=== PATIENT | male | born 1950 | race Caucasian/White ===

== ENCOUNTER 2024-02-12 17:16 | Outpatient (REF) | payer MEDICARE, MEDICAID, SELFPAY ==
[2024-02-12 19:25] LABS: Anion Gap 8.1 mmol/L (3-11); BUN 20 mg/dL (7-18); CO2 24.9 mmol/L (21.0-32.0); CREATININE 1.1 mg/dL (0.70-1.30); Calcium 8.7 mg/dL (8.5-10.1); Chloride 97 mmol/L (98-107); Estimated GFR 71.77 (mL/min/1.73m2); Glucose 90 mg/dL (74-106); Potassium 4.5 mmol/L (3.5-5.1); Sodium 130 mmol/L (136-145)
== END 2024-02-12 17:17 | disposition home or self-care (01) ==
LOC: NCHCN 17:16
PROVIDERS: PCP Internal Medicine; Visit Provider Nurse Practitioner Family
DX: N17.9 Acute kidney failure, unspecified (principal)
CPT/HCPCS: 80048

== ENCOUNTER 2024-02-20 10:52 | Outpatient (REF) | payer MEDICARE, MEDICAID, SELFPAY ==
[2024-02-20 18:53] LABS: Anion Gap 7.3 mmol/L (3-11); BUN 17 mg/dL (7-18); CO2 26.7 mmol/L (21.0-32.0); CREATININE 1.5 mg/dL (0.70-1.30); Calcium 8.4 mg/dL (8.5-10.1); Chloride 95 mmol/L (98-107); Estimated GFR 49.47 (mL/min/1.73m2); Glucose 111 mg/dL (74-106); Magnesium 1.8 mg/dL (1.8-2.4); Potassium 3.9 mmol/L (3.5-5.1); Sodium 129 mmol/L (136-145)
== END 2024-02-20 10:53 | disposition home or self-care (01) ==
LOC: NCHCN 10:52
PROVIDERS: PCP Internal Medicine; Visit Provider Nurse Practitioner Family
DX: E87.1 Hypo-osmolality and hyponatremia (principal); E83.42 Hypomagnesemia
CPT/HCPCS: 80048; 83735

== ENCOUNTER 2024-03-02 10:02 | Outpatient (REF) | payer MEDICARE, MEDICAID, SELFPAY ==
[2024-03-02 18:58] LABS: Anion Gap 7.3 mmol/L (3-11); BUN 15 mg/dL (7-18); CO2 27.7 mmol/L (21.0-32.0); CREATININE 1.3 mg/dL (0.70-1.30); Calcium 8.4 mg/dL (8.5-10.1); Chloride 96 mmol/L (98-107); Estimated GFR 58.73 (mL/min/1.73m2); Glucose 104 mg/dL (74-106); Potassium 4.4 mmol/L (3.5-5.1); Sodium 131 mmol/L (136-145)
== END 2024-03-02 10:03 | disposition home or self-care (01) ==
LOC: NCHCN 10:02
PROVIDERS: PCP Internal Medicine; Referring Provider Nurse Practitioner Family; Visit Provider Nurse Practitioner Family
DX: N17.9 Acute kidney failure, unspecified (principal)
CPT/HCPCS: 80048

== ENCOUNTER 2024-03-16 15:49 | Outpatient (REF) | payer MEDICARE, MEDICAID, SELFPAY ==
[2024-03-16 20:02] LABS: HCT 30.5 % (40.0-50.0); HGB 10.2 g/dL (13.5-17.5); MCH 32.2 pg (27.0-33.0); MCHC 33.4 % (32.0-36.0); MCV 96 fL (80-95); MPV 10.1 fL (8.0-11.0); Platelet Count 175 10^3/uL (130-400); RBC 3.17 10^6/uL (4.36-5.78); RDW 13.6 % (11.8-14.1); RDW-SD 48.4 fL; WBC 8.42 10^3/uL (4.4-10.8)
[2024-03-16 20:13] LABS: Iron 36 ug/dL (65-175); Total Iron Binding Capacity 209 ug/dL (250-450); Transferrin Sat 17 % (20-55)
[2024-03-16 20:27] LABS: Anion Gap 7.1 mmol/L (3-11); BUN 16 mg/dL (7-18); CO2 26.9 mmol/L (21.0-32.0); CREATININE 1.3 mg/dL (0.70-1.30); Calcium 8.6 mg/dL (8.5-10.1); Chloride 97 mmol/L (98-107); Estimated GFR 58.73 (mL/min/1.73m2); Ferritin 908 ng/mL (26-388); Glucose 89 mg/dL (74-106); Magnesium 1.9 mg/dL (1.8-2.4); Potassium 4.5 mmol/L (3.5-5.1); Sodium 131 mmol/L (136-145)
== END 2024-03-16 15:50 | disposition home or self-care (01) ==
LOC: NCHCN 15:49
PROVIDERS: PCP Internal Medicine; Visit Provider Nurse Practitioner Family
DX: D53.9 Nutritional anemia, unspecified (principal); E83.42 Hypomagnesemia; N17.9 Acute kidney failure, unspecified
CPT/HCPCS: 80048; 85027; 82728; 82746; 83540; 83550; 83735

== ENCOUNTER 2024-03-30 11:36 | Outpatient (REF) | payer MEDICARE, MEDICAID, SELFPAY ==
[2024-03-30 18:55] LABS: Anion Gap 7.8 mmol/L (3-11); BUN 16 mg/dL (7-18); CO2 27.2 mmol/L (21.0-32.0); CREATININE 1.5 mg/dL (0.70-1.30); Calcium 8.6 mg/dL (8.5-10.1); Chloride 98 mmol/L (98-107); Estimated GFR 49.47 (mL/min/1.73m2); Glucose 116 mg/dL (74-106); Potassium 4.2 mmol/L (3.5-5.1); Sodium 133 mmol/L (136-145)
== END 2024-03-30 11:37 | disposition home or self-care (01) ==
LOC: NCHCN 11:36
PROVIDERS: PCP Internal Medicine; Visit Provider Nurse Practitioner Family
DX: R94.4 Abnormal results of kidney function studies (principal)
CPT/HCPCS: 80048

== ENCOUNTER 2024-05-17 11:08 | Outpatient (REF) | payer MEDICARE, MEDICAID, SELFPAY ==
[2024-05-17 20:38] LABS: Anion Gap 9.1 mmol/L (3-11); BUN 20 mg/dL (7-18); CO2 25.9 mmol/L (21.0-32.0); CREATININE 1.7 mg/dL (0.70-1.30); Calcium 8.6 mg/dL (8.5-10.1); Chloride 97 mmol/L (98-107); Estimated GFR 42.57 (mL/min/1.73m2); Glucose 89 mg/dL (74-106); Potassium 4.2 mmol/L (3.5-5.1); Sodium 132 mmol/L (136-145)
== END 2024-05-17 11:09 | disposition home or self-care (01) ==
LOC: NCHCN 11:08
PROVIDERS: PCP Internal Medicine; Visit Provider Nurse Practitioner Family
DX: R79.89 Other specified abnormal findings of blood chemistry (principal)
CPT/HCPCS: 80048

== ENCOUNTER 2024-05-24 10:05 | Outpatient (REF) | payer MEDICARE, MEDICAID, SELFPAY ==
[2024-05-24 20:14] LABS: Bilirubin Negative (Negative); Blood Large (Negative); Clarity Clear (Clear); Glucose Negative (Negative); Ketones Negative (Negative); Leukocyte Esterase Negative (Negative); Nitrite Negative (Negative); Urobilinogen 0.2 mg/dL (Up to 0.2)
[2024-05-24 20:25] LABS: Bacteria Negative HPF (Negative); C & S Indicated? No; Crystals Negative HPF (Negative); Epithelial Cells Rare HPF (Negative); Mucus Negative (Negative); RBC 20-50 HPF (0-2); WBC 0-2 HPF (0-5)
== END 2024-05-24 10:06 | disposition home or self-care (01) ==
LOC: NCHCN 10:05
PROVIDERS: PCP Internal Medicine; Visit Provider Nurse Practitioner Family
DX: R79.89 Other specified abnormal findings of blood chemistry (principal); R82.998 Other abnormal findings in urine
CPT/HCPCS: 81003; 81015

== ENCOUNTER 2024-06-09 10:29 | Emergency (ER) | payer MEDICARE, MEDICAID, SELFPAY ==
[2024-06-09] VITALS (28 sets, daily range): BP systolic 141–202; BP diastolic 70–138; PULSE 61–69; RESP 11–30; TEMP 36–36.1; O2SAT 94–99
--- NOTE | 2024-06-09 10:00 | RT.EKG_ITS ---
APPROVED REPORT Exam: Resting ECG Reason for Exam: syncope Patient Location: E HR:59 bpm ECG Measurements Heart Rate 59 AXIS MN 193 P 52 QRSd 95 QRS 58 QT 464 T 61 QTc 459 Conclusion Sinus bradycardia...rate< 60 sinus bradycardia, normal axis, normal intervals, non ischemic
--- NOTE | 2024-06-09 10:38 | W.ED.GENAD ---
Discharge Plan Disposition Patient Disposition: Home Condition: Improving Discharge Details Chief Complaint: [id number] Clinical Impression: Syncope Primary Care Provider: Lewis Kelley ED Provider: Jalil Clarke Home Meds and New Rx's Prescriptions: No Action aspirin [Adult Aspirin Regimen] 81 mg tablet,delayed release (DR/EC) 81 mg PO DAILY atorvastatin 40 mg tablet 40 mg PO DAILY metoprolol succinate 25 mg tablet extended release 24 hr 25 mg PO DAILY Discharge Instructions Instructions: Syncope (Fainting) (DC) Additional Instructions: Please return to the emergency department for any worsening symptoms. Follow-up close with your primary care physician. HPI General Date/Time Provider Initiated Documentation: 06/09/24 10:36. HPI Narrative: 73-year-old male history of hyponatremia hypomagnesemia alcohol abuse, presents after syncopal episode at a job site, felt lightheaded and collapsed to the ground no chest pain or shortness of breath no headache no neck pain no thoracoabdominal trauma patient regained consciousness normal fingerstick in the field, had episode of bradycardia and hypotension now resolving patient feeling asymptomatic currently Related Data Home Medications Medication Instructions Recorded Confirmed aspirin 81 mg tablet,delayed 81 mg PO DAILY 06/01/24 release (Adult Aspirin Regimen) atorvastatin 40 mg tablet 40 mg PO DAILY 06/01/24 metoprolol succinate 25 mg 25 mg PO DAILY 06/01/24 tablet,extended release 24 hr Allergies Allergy/AdvReac Type Severity Reaction Status Date / Time cefdinir Allergy Skin Rash Verified 06/01/24 08:19 General Stated Complaint: [id number] IBGG: 3 Review of Systems Narrative: Review of Systems Constitutional: negative Eyes: negative ENT: negative Cardiovascular: Syncope Respiratory: negative Gastrointestinal: negative : negative Musculoskeletal: negative Skin: negative Neurologic: negative Psych: negative Exam Narrative Exam Narrative: Physical Examination General: alert, awake, cooperative, resting comfortably, no acute distress HEENT: normocephalic, atraumatic; PERRL, EOM intact, conjunctiva normal; no nasal discharge; drying of oral mucosa Neck: supple, trachea midline; full ROM Chest: normal to inspection Respiratory: normal respiratory effort, speaking in full sentences, clear to auscultation, no wheezing, rales or rhonchi Cardiac: regular rate, regular rhythm, S1S2 intact, no murmurs rubs or gallops GI: abdomen soft, non-tender, non-distended; no palpable mass or hepatosplenomegaly Back: No midline spinal tenderness step-off crepitus or deformity Skin: no lesions, rashes or trauma appreciated; dry skin Neuro: AAOx3, normal speech, moving all extremities Extremities: No peripheral edema no trauma Psych: Appropriate mood and affect Course Vital Signs Vital signs: Vital Signs Temperature 36.0 C L 06/09/24 10:26 Pulse 65 06/09/24 10:26 Respiratory Rate 20 06/09/24 10:26 Blood Pressure 141/70 H 06/09/24 10:26 Pulse Oximetry 98 06/09/24 10:26 Temperature 36.0 C L 06/09/24 10:26 Temperature Source Tympanic 06/09/24 10: Pulse 65 06/09/24 10:26 Respiratory Rate 20 06/09/24 10:26 Blood Pressure 141/70 H 06/09/24 10:26 Pulse Oximetry 98 06/09/24 10:26 Oxygen Delivery Method Room Air 06/09/24 10: Oxygen Flow Rate 0 06/09/24 10:26 Medical Decision Making 73-year-old male presents after episode of syncope at work, prodrome of lightheadedness, brief loss of consciousness after collapse, no chest pain or shortness of breath no respiratory symptoms no headache no neck pain no back pain no thoracoabdominal trauma hemodynamically stable sinus rhythm sinus bradycardia on EKG without ischemic changes mildly hypertensive afebrile nontoxic neurologically intact moving all extremities without deficit no signs of trauma, consider orthostatic versus vasovagal syncope muscles consider component of intoxication and dehydration given patient history muscles consider electrolyte derangement lower suspicion for ACS PE aortic pathology or CVA. Given age and comorbidities will obtain labs and imaging, fluids close reassessment 15: 03 resting comfortably no acute distress labs and imaging largely unremarkable, patient is COVID-positive. Neurologically intact. Likely component of dehydration versus overexertion versus vasovagal versus orthostasis in the setting of viral illness. Home care instruction return precautions given Quality:SDOH Health Related Social Needs: No Data to Display PFSH All Active Problems (Updated 06/09/24 @ 13:04 by Jalil Clarke MD) Syncope (Chronic) Serum creatinine raised (Acute) Atrial tachycardia (Acute) History of hypotension (Acute) Dysphagia (Acute) Chest pain (Acute) Pruritic rash (Acute) Acute kidney injury (Acute) Pneumonia (Acute) Heart failure (Acute) Nicotine dependence (Acute) Tobacco dependence (Acute) Heavy drinker (Acute) Alcohol abuse (Chronic) Alcohol dependence (Acute) Macrocytic anemia (Acute) Metabolic acidosis (Acute) Hyponatremia (Acute) Hypomagnesemia (Acute) Social History Smoking/Tobacco Use Status: Current every day Smoking risk assessment performed?: Yes Drug use: Never
[2024-06-09 10:52] LABS: Abs Immature Grans 0.01 10^3/uL (0.0-0.06); Absolute Basophil Count 0.02 10^3/uL (0.0-0.2); Absolute Eosinophil Count 0.01 10^3/uL (0.0-0.7); Absolute Lymphocyte Count 1.06 10^3/uL (1.2-3.4); Absolute Neutrophil Count 1.37 10^3/uL (1.2-6.7); Basophils % 0.7 %; Eosinophils % 0.3 %; HCT 32.7 % (40.0-50.0); HGB 11.1 g/dL (13.5-17.5); Immature Grans % 0.3 %; Lymphocytes % 36.9 %; MCH 32.6 pg (27.0-33.0); MCHC 33.9 % (32.0-36.0); MCV 96 fL (80-95); MPV 9.1 fL (8.0-11.0); Monocytes % 13.9 %; Neutrophils % 47.9 %; Platelet Count 123 10^3/uL (130-400); RDW 12.7 % (11.8-14.1); RDW-SD 44.9 fL; WBC 2.87 10^3/uL (4.4-10.8)
[2024-06-09 11:09] LABS: INR 1.2 (0.9-1.1); PTT Activated 24.9 sec (23.6-32.8); Prothrombin Time 11.9 sec (9.1-11.1)
[2024-06-09 11:20] LABS: ALT 31 U/L (16-63); AST 49 U/L (15-37); Albumin 3.3 g/dL (3.4-5.0); Alkaline Phosphatase 78 U/L (46-116); Anion Gap 5.7 mmol/L (3-11); BUN 27 mg/dL (7-18); Bilirubin, Total 0.33 mg/dL (0.2-1.0); CO2 27.3 mmol/L (21.0-32.0); Chloride 96 mmol/L (98-107); Estimated GFR 35.02 (mL/min/1.73m2); Glucose 100 mg/dL (74-106); Magnesium 1.5 mg/dL (1.8-2.4); NT-proBNP 1470 pg/mL (<300); Potassium 3.7 mmol/L (3.5-5.1); Sodium 129 mmol/L (136-145); TSH (W/Ref FT4) 5.02 uIU/mL (0.36-3.74); Total Protein 7.3 g/dL (6.4-8.2); Troponin I < 50 ng/L (< or =60)
[2024-06-09 11:21] LABS: ETHANOL BLOOD < 3.0 mg/dL (<10)
[2024-06-09 11:35] LABS: FREE T4 0.83 ng/dL (0.76-1.46)
[2024-06-09 11:50] LABS: Bilirubin Negative (Negative); Blood Large (Negative); Clarity Clear (Clear); Glucose Negative (Negative); Ketones Negative (Negative); Leukocyte Esterase Negative (Negative); Nitrite Negative (Negative); Specific Gravity 1.015 (1.005-1.025); Urobilinogen 0.2 mg/dL (Up to 0.2)
[2024-06-09 12:11] LABS: Bacteria Few HPF (Negative); Epithelial Cells Few HPF (Negative); Mucus Trace (Negative); RBC >50 HPF (0-2)
[2024-06-09 12:12] LABS: C & S Indicated? No; Casts 0-2 Coarse Granular LPF (Negative)
[2024-06-09 12:26] LABS: Influenza A PCR Negative (Negative); Influenza B PCR Negative (Negative); RSV PCR Negative (Negative)
[2024-06-09 12:28] LABS: Source Nasopharynx
[2024-06-09 12:29] LABS: COVID-19 PCR Positive (Negative)
--- NOTE | 2024-06-09 12:31 | DI.CT_ITS ---
Exam(s) CT HEAD WO EXAM: CT HEAD WO CLINICAL HISTORY: syncope, on ASA. TECHNIQUE: Imaging Protocol: Axial computed tomography images with coronal and sagittal reformatted images were created and reviewed COMPARISON: No exams were available for comparison FINDINGS: Ventricles and Extra axial spaces: Normal in size and morphology for the patient's age. Hemorrhage: None. Cerebral parenchyma: No evidence of acute infarct or mass. White matter changes of small vessel dis ease. Midline shift: None. Brainstem/Cerebellum: Normal. Calvarium: Normal. Visualized Paranasal sinuses:Clear. Mastoids: Clear. Soft Tissues: Unremarkable. ORBITS: Unremarkable. PITUITARY: Not enlarged. IMPRESSION: No acute intracranial process. RADIATION DOSE DELIVERED: 724.24mGy.cm Total DLP DATA REPOSITORY: All CT scans at this facility are submitted to the National Radiology Data Registry (NRDR) Dose Index Registry (DIR) with the [employer] (ACR). RADIATION OPTIMIZATION: All CT scans at this facility use at least one of these dose optimization te chniques: automated exposure control; mA and/or kV adjustment per patient size (includes targeted exa ms where dose is matched to clinical indication); or iterative reconstruction.
--- NOTE | 2024-06-09 12:35 | DI.RAD_ITS ---
Exam(s) XR CHEST 2V PA LATERAL EXAM: XR CHEST 2V PA LATERAL CLINICAL HISTORY: syncope TECHNIQUE: 2D digital imaging was performed. Two views. COMPARISON: No exams were available for comparison FINDINGS: HEART: Normal size. Aorta: Not dilated. PULMONARY VASCULATURE: Normal. MEDIASTINUM: Unremarkable. LUNGS: Clear. Emphysematous changes visible. PLEURAL SPACE: No pleural effusion or pneumothorax. BONE:Degenerative changes in the spine and shoulders. SOFT TISSUES: Unremarkable. IMPRESSION: No acute abnormality. DATA REPOSITORY: RADIATION DOSE DELIVERED:
== END 2024-06-09 13:20 | disposition home or self-care (01) ==
LOC: ER 14:09
PROVIDERS: Emergency Provider Emergency Medicine; PCP Internal Medicine
DX: R55 Syncope and collapse (principal); F17.200 Nicotine dependence, unspecified, uncomplicated; Z79.82 Long term (current) use of aspirin
CPT/HCPCS: 36415; 80053; 87637; 93005; 99284; 70450; 71046; 80320; 81003; 81015; 83735; 83880; 84439; 84443; 84484; 85025; 85610; 85730; 93010; 99283

== ENCOUNTER 2024-09-28 21:04 | Outpatient (REF) | payer MEDICARE, MEDICAID, SELFPAY ==
[2024-09-28 19:18] LABS: HCT 34.2 % (40.0-50.0); HGB 11.6 g/dL (13.5-17.5); MCH 33.8 pg (27.0-33.0); MCHC 33.9 % (32.0-36.0); MCV 100 fL (80-95); MPV 10.6 fL (8.0-11.0); Platelet Count 111 10^3/uL (130-400); RBC 3.43 10^6/uL (4.36-5.78); RDW 12.9 % (11.8-14.1); RDW-SD 46.5 fL; WBC 6.45 10^3/uL (4.4-10.8)
[2024-09-28 19:25] LABS: Bacteria Many HPF (Negative); C & S Indicated? No; Casts 0-2 Hyaline LPF (Negative); Crystals Negative HPF (Negative); Epithelial Cells Rare HPF (Negative); Mucus Negative (Negative); WBC 0-2 HPF (0-5)
[2024-09-28 19:34] LABS: ALT 25 U/L (16-63); AST 37 U/L (15-37); Albumin 3.6 g/dL (3.4-5.0); Alkaline Phosphatase 82 U/L (46-116); Anion Gap 9.8 mmol/L (3-11); BUN 20 mg/dL (7-18); Bilirubin, Direct 0.1 mg/dL (0.0-0.2); Bilirubin, Total 0.53 mg/dL (0.2-1.0); CO2 26.2 mmol/L (21.0-32.0); CREATININE 1.8 mg/dL (0.70-1.30); Calcium 9.1 mg/dL (8.5-10.1); Chloride 97 mmol/L (98-107); Glucose 95 mg/dL (74-106); Magnesium 1.6 mg/dL (1.8-2.4); Potassium 4.1 mmol/L (3.5-5.1); Sodium 133 mmol/L (136-145); Total Protein 8.5 g/dL (6.4-8.2)
== END 2024-09-28 21:05 | disposition home or self-care (01) ==
LOC: NCHCN 21:04
PROVIDERS: PCP Internal Medicine; Visit Provider Nurse Practitioner Family
DX: N18.32 Chronic kidney disease, stage 3b (principal); R31.29 Other microscopic hematuria
CPT/HCPCS: 80048; 80076; 85027; 81015; 83735

== ENCOUNTER 2024-10-26 16:01 | Outpatient (REF) | payer MEDICARE, MEDICAID, SELFPAY ==
[2024-10-26 19:24] LABS: Magnesium 1.7 mg/dL (1.8-2.4)
[2024-10-26 19:52] LABS: HCT 31.7 % (40.0-50.0); HGB 10.7 g/dL (13.5-17.5); MCH 33.9 pg (27.0-33.0); MCHC 33.8 % (32.0-36.0); MCV 100 fL (80-95); MPV 10.1 fL (8.0-11.0); Platelet Count 187 10^3/uL (130-400); RBC 3.16 10^6/uL (4.36-5.78); RDW 12.4 % (11.8-14.1)
== END 2024-10-26 16:02 | disposition home or self-care (01) ==
LOC: NCHCN 16:01
PROVIDERS: PCP Internal Medicine; Visit Provider Nurse Practitioner Family
DX: E83.42 Hypomagnesemia (principal); D53.9 Nutritional anemia, unspecified
CPT/HCPCS: 85027; 83735

== ENCOUNTER 2025-03-29 12:59 | Outpatient (REF) | payer MEDICARE, MEDICAID, SELFPAY ==
[2025-03-29 19:38] LABS: Anion Gap 7.7 mmol/L (3-11); BUN 21 mg/dL (7-18); CO2 29.3 mmol/L (21.0-32.0); CREATININE 1.9 mg/dL (0.70-1.30); Calcium 9.5 mg/dL (8.5-10.1); Chloride 96 mmol/L (98-107); Estimated GFR 37.02 (mL/min/1.73m2); Glucose 84 mg/dL (74-106); Potassium 4.6 mmol/L (3.5-5.1); Sodium 133 mmol/L (136-145)
== END 2025-03-29 13:00 | disposition home or self-care (01) ==
LOC: NCHCN 12:59
PROVIDERS: PCP Internal Medicine; Visit Provider Nurse Practitioner Family
DX: E87.1 Hypo-osmolality and hyponatremia (principal)
CPT/HCPCS: 80048

== ENCOUNTER 2025-04-04 12:05 | Outpatient (REF) | payer MEDICARE, MEDICAID, SELFPAY ==
[2025-04-04 19:26] LABS: Bilirubin Negative (Negative); Blood Moderate (Negative); Clarity Clear (Clear); Glucose Negative (Negative); Ketones Negative (Negative); Leukocyte Esterase Negative (Negative); Nitrite Negative (Negative); Urobilinogen 0.2 mg/dL (Up to 0.2); pH 6.5 (5-8)
[2025-04-04 19:32] LABS: Bacteria Negative HPF (Negative); C & S Indicated? No; Casts 0-2 Hyaline LPF (Negative); Crystals Negative HPF (Negative); Epithelial Cells Few HPF (Negative); Mucus Heavy (Negative); RBC 20-50 HPF (0-2); WBC Negative HPF (0-5)
[2025-04-06 14:01] LABS: Albumin 46.6 % (55.8-66.1); Albumin g/dL 3.5 g/dL (3.6-5.2); Comment (See Note); Monoclonal Spike 18.6 % (None Seen); Monoclonal Spike g/dL 1.4 g/dL (None Seen); Total Protein 7.6 g/dL (6.3-8.2)
[2025-04-06 16:19] LABS: Immunotyping, Serum (See Note)
== END 2025-04-04 12:06 | disposition home or self-care (01) ==
LOC: NCHCN 12:05
PROVIDERS: PCP Internal Medicine; Visit Provider Nurse Practitioner Family
DX: N18.32 Chronic kidney disease, stage 3b (principal)
CPT/HCPCS: 81003; 81015; 84165; 86320

== ENCOUNTER 2025-06-01 01:39 | Outpatient (CLI) | payer MEDICARE, MEDICAID, SELFPAY ==
--- NOTE | 2025-06-01 13:09 | ST.MBS ---
Date of Service Date of service: 06/01/25 Time of Service: 14:00 Modified Barium Swallow Study Findings: Video fluoroscopic Swallowing Evaluation (VFSE) / Modified Barium Swallow Study (MBSS) Speech Language Pathology Report Patient referred for VFSE/MBSS from Dr. Kelley given gradually worsening dysphagia with solids > liquids and ~10 lb weight loss. Kishan states he is currently only able to eat soups/pureed foods. He describes food as sticking in lower throat and sometimes he will experience immediate onset regurgitation. Liquids are OK. Pills are OK if small, otherwise he is crushing them. HPI & Patient report of function: Patient is a 74 year old male with PMH significant for extensive tobacco use (reduced to 1ppd, previously 3ppd), ETOH use, NSTEMI, CKD, carotid stenosis, hx R side pneumonia, and macrocytic anemia who presents with 2-3 month history of dysphagia as noted above. His PCP referred him for ELECTRICAL APPRENTICE evaluation, MBSS, CT of the neck, and ENT with concern for head and neck CA. He was seen for a non-instrumental swallow evaluation 05/24/25 and recommended a L4 Puree diet, thin liquids, and meds crushed in puree while awaiting further workup with MBSS. Per patient report, Kishan received imaging at [facility] (unable to locate report) which was positive for 'esophageal mass'. Per review of [facility] records he is scheduled to see a thoracic surgeon at [facility] on 06/13/25 for dx esophageal mass. He is scheduled to see ENT on 06/28/25 as initially set up by PCP with dysphagia complaints, as well as for concern of melanotic lesion on L posterior neck. 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 IMPRESSIONS: Patient presents with severe upper esophageal dysphagia with subsequent pharyngeal phase dysfunction. With all trialed consistencies (thin liquid, thick liquid, pudding) the bolus is retained just immediately below the upper esophageal sphincter. While at first this looks possibly consistent with a diverticulum, with further scan down there is suspected narrowing of the esophagus. See radiologist report for more information/correlate with recent imaging at [facility]. With each sip/bite, there are multiple swallows in attempt to clear, and also subsequent vallecular and pyriform retention. While he is able to clear majority of pharyngeal residue, mild vallecular retention remains still at end of study along with there is notable upper esophageal retention remaining again just below the PES. Aspiration did occur in one instance with thin liquid- immediate cough reflex present though not fully effective. Again, primary reason for aspiration and pharyngeal retention appears to be the upper esophageal dysfunction. Recommend endoscopy for further workup. Additional ELECTRICAL APPRENTICE needs to be determined pending patient's treatment plan. Specialist referrals:? GI/surgery for upper GI endoscopy procedure & biopsy RECOMMENDATIONS: Diet Texture:? IDDSI LEVEL SOLIDS 4-Pureed Solids & 3-Liquidised Solids LIQUIDS 0-Thin Liquids MEDICATIONS Crushed or whole (if small) in applesauce followed by sips liquid Diet texture modification is per patient's preference; please adjust diet textures at patient's discretion & collaboration with care team. Do not alter medications (e.g., cut)? without advice from your MD or pharmacist. Risk Management Strategies:? Upright position during + 90 mins after meals. Small bites, approx [id number] Very small sips, approx 5mL / teaspoon Encourage avoidance of straws Multiple swallows per bolus to encourage clearance of pharyngeal stasis/residue Control risk factors for aspiration pneumonia via (a) thorough oral hygiene & (b) maintaining physical mobility as tolerated Discussed importance of oral hygiene despite being edentulous. Patient verbalized comprehension of this education. PLAN: No further ELECTRICAL APPRENTICE services indicated at this time as he undergoes further esophageal workup and management. Pending patient's plan of care, further ELECTRICAL APPRENTICE may be indicated. We will continue to monitor. OBJECTIVE Videofluoroscopic Swallow Evaluation (VFSE/MBSS) was conducted in the lateral and [id number] projection by Speech-Language Pathologist, in collaboration with Radiologist, to evaluate oropharyngeal swallow function. Anatomic view under fluoroscopy: WFL PO Barium Contrast Trials Oral barium water-soluble contrast was administered as follows: IDDSI Level 0 Varibar thin liquid (40% w/v) IDDSI Level 2 Varibar nectar thick/mildly thick liquid (40% w/v) IDDSI Level 4 Varibar pudding/pureed/extremely thick (40% w/v) MBSImP Component Scores: COMPONENT Scale SCORE 1 Lip closure (0-4) 0 Resulted in no labial escape 2 Hold Position (0-3) 0 Maintained a cohesive bolus between tongue to palatal seal 3 Bolus Preparation (0-4) 0 Resulted in timely and efficient chewing and mashing 4 Bolus Transport (0-4) 0 Was with brisk tongue motion 5 Oral Residue (0-4) 1 Was a trace, lining oral structures 6 Swallow Initiation (0-4) 1 Occurred when the bolus head was in valleculae 7 Soft Palate Elevation (0-4) 0 Resulted in no bolus between soft palate and the pharyngeal wall 8 Laryngeal Elevation (0-3) 1 Was decreased with partial superior movement of thyroid cartilage/partial approximation of arytenoids to epiglottic petiole 9 Anterior Hyoid Motion (0-2) 1 Demonstrated partial anterior movement 10 Epiglottic Movement (0-2) 1 Resulted in partial inversion 11 Laryngeal Closure (0-2) 1 Was incomplete with narrow a column of air/contrast in laryngeal vestibule 12 Pharyngeal Stripping Wave (0-2) 1 Was present, but diminished 13 Pharyngeal Contraction (0-3) - 14 PES Opening (0-3) 1 Demonstrated partial distension/partial duration, with partial obstruction of flow 15 Tongue Base Retraction (0-4) 1 Allowed a trace column of contrast or air between tongue base and pharyngeal wall 16 Pharyngeal Residue (0-4) 2 Was a collection of residue within or on pharyngeal structures 17 Esophageal Clearance (0-4) 4 Showed minimal to no esophageal clearance immediately below the PES, though lower aspect of esophagus clears with trace coating remaining. There is minimal retroflow back through PES throughout study. Results: COMPONENT Scale SCORE 1 Oral Score (0-18) 1 2 Pharyngeal Score (0-29) 8 3 Esophageal Score (0-4) 4 Functional Oral Intake Scale: COMPONENT Scale SCORE 1 Pre-Study (1-7) 5 Total oral intake of multiple consistencies requiring special preparation 2 Post-Study (1-7) 5 Total oral intake of multiple consistencies requiring special preparation Penetration-Aspiration Scale: COMPONENT Scale SCORE 1 Thin liquid (1-8) 7 Contrast entered the airway, passed below the vocal folds, and was not ejected from the trachea despite effort. 2 [place] thick (1-8) 1 Contrast did not enter the airway 3 Honey thick (1-8) NA 4 Pudding thick (1-8) 1 Contrast did not enter the airway 5 Cookie (1-8) NA Trialed Compensatory Strategies & Outcome: Patient spontaneously demonstrated small sips & repeat swallows which were beneficial. No add'l maneuvers were attempted in light of nature of deficits. Maneuvers Successful (+) Unsuccessful (-) Postures Successful (+) Unsuccessful (-) 3 second Preparatory Set? ? Chin Tuck Posture? ? Cough? ? Posterior Head tilt? Reflexive? Cued? Throat Clear? ? Head Tilt to? Reflexive? Left? Cued? Right? ? Saliva swallow? ? Head Turn/Rotate to? ? Supraglottic Swallow? Left? ? Super-supraglottic Swallow? Right? ? Thank you for allowing us to take part in this patient's care. Please feel free to contact the [facility] Speech Language Pathology Department with any questions/concerns.
[2025-06-01] MEDS: Barium Sulfate 40% W/V 240 ML BTL PO (14:03)
[2025-06-01] MEDS: Barium Sulfate Oral Paste 40% W/V 230 ML TUBE PO (14:04)
[2025-06-01] MEDS: Barium Sulfate 81% w/w for Oral Suspension 148 GM BTL PO (14:06)
--- NOTE | 2025-06-01 14:43 | DI.RAD_ITS ---
Exam(s) RF MODIFIED SPEECH BA SWALLOW EXAM: RF MODIFIED SPEECH BA SWALLOW CLINICAL HISTORY: OROPHARYNGEAL DYSPHAGIA, R13.12 TECHNIQUE: Modified barium swallow was performed in conjunction with speech pathology. CONTRAST MATERIAL: Multiple consistencies of oral barium contrast were administered. COMPARISON: CT CT SOFT TISSUE NECK W/CONTRAST from 05/03/2025 FINDINGS: Note that this is not a dedicated esophagram, distal esophagus not evaluated. Laryngeal penetration and aspiration were observed with thin liquid. There is residue in the vallecula and piriform sinuses. There is narrowing of the upper esophagus over an approximately 3.5 cm length. There is some pooling of the barium above this level. A circumferential mass was demonstrated on the prior CT scan. There is a mildly prominent cricopharyngeus impression.. Speech pathology report to follow. IMPRESSION: Mass in the upper esophagus causes significant narrowing. There is some pooling of the barium superior to this level. There is a prominent cricopharyngeus impression. Aspiration was observed with thin liquids. RADIATION DOSE DELIVERED: gudelia Maldonado=14.2 mGy
== END 2025-06-01 01:59 ==
PROVIDERS: PCP Internal Medicine; Visit Provider Internal Medicine
DX: R13.12 Dysphagia, oropharyngeal phase (principal)
CPT/HCPCS: 92526; 74221

== ENCOUNTER 2025-06-16 13:28 | Observation (INO) | payer MEDICARE, MEDICAID, SELFPAY ==
[2025-06-16] VITALS (37 sets, daily range): BP systolic 119–164; BP diastolic 74–97; PULSE 57–72; RESP 12–22; TEMP 36.1–37; O2SAT 93–98
--- NOTE | 2025-06-16 13:15 | RT.EKG_ITS ---
APPROVED REPORT Exam: Resting ECG Reason for Exam: Dizzyness Patient Location: E HR:67 bpm ECG Measurements Heart Rate 67 AXIS DE 171 P 72 QRSd 81 QRS 70 QT 412 T 68 QTc 436 Conclusion Sinus rhythm...normal P axis, V-rate 60- 99
--- NOTE | 2025-06-16 13:41 | NUR.NOTE ---
Nursing Note: PT said he has not taken his pills for about 1.5wks has been dizzy for approx 2wks
--- NOTE | 2025-06-16 14:24 | DI.CT_ITS ---
Exam(s) CT BRAIN NECK CTA EXAM: CT BRAIN NECK CTA CLINICAL HISTORY: dizziness, lt ica stenosis, esaph mass. TECHNIQUE: Imaging Protocol: Axial CT angiography was performed with multi- slice acquisition and multi-planar and/or 3D reconstructions. CONTRAST MATERIAL: Intravenous: Omnipaque 350 Contrast volume:structured data in ml COMPARISON: CT CT SOFT TISSUE NECK W/CONTRAST from 05/03/2025 FINDINGS: CTA Neck W: The malignant-appearing upper esophageal mass described on recent CT scan of 05/03/2025 is again noted. Abnormal wall thickness of the esophagus at this level is approximately 1.5 cm circumferentially. Aortic arch anatomy: With regards to the aortic arch anatomy it is noted that the left vertebral artery originates as an independent vessel off of the aortic arch. The right vertebral artery originates in conventional fashion off the right subclavian artery. Right vertebral artery is dominant Anterior circulation: Both common carotid arteries ascend with normal luminal diameters. On the left side there is calcified plaque at the left carotid bifurcation without a significant stenosis at this level but there is significant circumferential stenosis above this level in the proximal left internal carotid artery with estimated stenosis of 80-90 percent. No evidence of dissection. In the upper left neck of the left ICA exhibits normal diameter as well as within the skull base-carotid canal. On the opposite-right side the common carotid artery ascends with normal luminal diameter. However, there is some atherosclerotic disease in the brachiocephalic artery which is not completely included in the field of view. Acquired images in this study start above the takeoff points of the brachiocephalic and left common carotid arteries from the aortic arch. There is calcified and noncalcified plaque at the right carotid bulb and proximal right ICA. Estimated at approximately 50 percent stenosis in the proximal right ICA. No dissection. In the upper right neck the upper right ICA exhibits normal diameter as well as in the skull base-carotid canal. Posterior circulation: The dominant right vertebral artery originates in conventional fashion off the right subclavian artery. The non dominant left vertebral artery originates as an independent vessel off the aortic arch. Both vertebral arteries ascend in the foramen transverse area without evidence of significant stenosis nor dissection. At the skull base the basilar artery is formed predominately by the dominant right vertebral artery. CTA Brain W: Anterior circulation: Both internal carotid arteries are patent in the skull base-carotid canals. There is circumferential calcified plaque in the bilateral intra cavernous internal carotid arteries but without a critical stenosis at these levels. The supraclinoid aspects of the ICAs are patent. The right A1 segment is dominant. Both anterior cerebral arteries are patent and there is no aneurysm at the level the anterior communicating artery. Both middle cerebral arteries are patent with no evidence of significant stenosis nor intraluminal thrombus. There also no aneurysms of these vessels. Posterior circulation: Basilar artery ascends without significant stenosis. Distally it gives off bilateral superior cerebellar arteries. Above this level terminates as bilateral posterior cerebral arteries. Patent on the right side. On the left side there is also posterior communicating artery at into the flow within the left posterior cerebral artery. There is no evidence of aneurysm at the tip of the basilar artery nor elsewhere in the [id number]. CT BRAIN: There is no evidence of intracranial hemorrhage, mass effect, or shift of midline structures. There are no extra-axial fluid collections. Ventricles are not enlarged or shifted. There are no ring enhancing lesions in the brain and no abnormal meningeal enhancement. There is relatively symmetrical bilateral periventricular hypodensity consistent with chronic small vessel disease. There is no abnormal enhancement in these regions. IMPRESSION: 1. Suboptimal study as the origin of the brachiocephalic artery and left common carotid arteries off the aortic arch are not included in the field of view. There does appear to be some moderate atherosclerotic involvement of the partially visualized brachiocephalic artery. 2. There is significant stenosis in the proximal left internal carotid artery in the neck. The amount of stenosis at this level is estimated at 80-90 percent stenosis. Lesser amount of stenosis (approximately 50 percent) is seen in the proximal right ICA. 3. Patent vertebral arteries. The right vertebral artery is dominant. The left vertebral artery is noted to originate as an independent vessel off the aortic arch. No evidence of vertebral artery thrombosis nor dissection. 4. Patent intracranial arteries. No high-grade stenosis evident and no aneurysms nor evidence of vascular malformation. 5. There is symmetrical periventricular hypodensity in the brain consistent with chronic small vessel disease. There are no ring enhancing lesions in the brain. There is no abnormal meningeal enhancement. 6. 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 This was documented on outside CT scan of 05/03/2025 Report called by myself to ER on 06/16/2025 at 4:28 p.m. RADIATION DOSE DELIVERED: 2,155.86mGy.cm Total DLP DATA REPOSITORY: All CT scans at this facility are submitted to the National Radiology Data Registry (NRDR) Dose Index Registry (DIR) with the [employer] (ACR). RADIATION OPTIMIZATION: All CT scans at this facility use at least one of these dose optimization techniques: automated exposure control; mA and/or kV adjustment per patient size (includes targeted exams where dose is matched to clinical indication); or iterative reconstruction.
[2025-06-16 14:40] LABS: Abs Immature Grans 0.02 10^3/uL (0.0-0.06); HCT 32.7 % (40.0-50.0); HGB 11.0 g/dL (13.5-17.5); Immature Grans % 0.3 %; MCH 32.4 pg (27.0-33.0); MCHC 33.6 % (32.0-36.0); MCV 96 fL (80-95); MPV 9.8 fL (8.0-11.0); Platelet Count 250 10^3/uL (130-400); RBC 3.40 10^6/uL (4.36-5.78); RDW 14.2 % (11.8-14.1); RDW-SD 49.7 fL; WBC 6.30 10^3/uL (4.4-10.8)
[2025-06-16 14:59] LABS: ALT 16 U/L (16-63); AST 16 U/L (15-37); Albumin 3.3 g/dL (3.4-5.0); Alkaline Phosphatase 80 U/L (46-116); Anion Gap 9.6 mmol/L (3-11); BUN 20 mg/dL (7-18); Bilirubin, Total 0.2 mg/dL (0.2-1.0); CO2 27.4 mmol/L (21.0-32.0); Calcium 9.0 mg/dL (8.5-10.1); Chloride 101 mmol/L (98-107); Estimated GFR 45.50 (mL/min/1.73m2); Glucose 83 mg/dL (74-106); Magnesium 1.9 mg/dL (1.8-2.4); Potassium 4.0 mmol/L (3.5-5.1); Sodium 138 mmol/L (136-145); Total Protein 7.7 g/dL (6.4-8.2); Troponin I 9 ng/L (<or=76)
--- NOTE | 2025-06-16 15:01 | W.ED.GENAD ---
Discharge Plan Discharge Details Chief Complaint: Dizzy/Sync Primary Care Provider: Lewis Kelley ED Provider: Eze Correa Home Meds and New Rx's Prescriptions: No Action aspirin [Adult Aspirin Regimen] 81 mg tablet,delayed release (DR/EC) 81 mg PO DAILY atorvastatin 40 mg tablet 40 mg PO DAILY metoprolol succinate 25 mg tablet extended release 24 hr 25 mg PO DAILY folic acid 1 mg tablet 1 mg PO DAILY bupropion HCl [Wellbutrin XL] 150 mg tablet extended release 24 hr 150 mg PO DAILY magnesium oxide 400 mg magnesium tablet 400 mg PO DAILY HPI General Mode of arrival: EMS. Date/Time Provider Initiated Documentation: 06/16/25 14:08. Limitations to Documentation: no limitations. Information obtained by: patient and EMS. HPI Narrative: HISTORY OF PRESENT ILLNESS 74-year-old male with history of carotid arterial blockage presenting with dizziness. Patient contacted hospital this morning due to arterial blockage causing dizzy spells. Patient seen by vascular surgery at [facility] and determined to be surgical candidate recently. Patient also with esophageal mass recently diagnosed and being worked up. Today patient experienced two episodes of dizziness within 1.5 hours today, one while ascending stairs and the other upon standing. Dizzy spells occurring intermittently for 3 weeks. Reports no pain or numbness. Patient felt like he was going to pass out. Under care of Dr. Alcala for esophageal mass and another vascular specialist at [facility]. Reports difficulty swallowing, limiting diet to tomato soup with milk and ice cream. Noticed improvement in swallowing last night and this morning. Smokes one pack per day, down from two packs per day two years ago. Prescribed medication for smoking cessation, increased urge to smoke. Patient denies symptoms at this time. No numbness or weakness. No headache. No dizziness. Related Data Home Medications ?Medication ?Instructions ?Recorded ?Confirmed aspirin 81 mg tablet,delayed 81 mg PO DAILY 06/01/24 06/16/25 release (Adult Aspirin Regimen) atorvastatin 40 mg tablet 40 mg PO DAILY 06/01/24 06/16/25 metoprolol succinate 25 mg 25 mg PO DAILY 06/01/24 06/16/25 tablet,extended release 24 hr bupropion HCl 150 mg 24 hr tablet, 150 mg PO DAILY 05/20/25 06/16/25 extended release (Wellbutrin XL) folic acid 1 mg tablet 1 mg PO DAILY 05/20/25 06/16/25 magnesium oxide 400 mg PO DAILY 05/20/25 06/16/25 Allergies Allergy/AdvReac Type Severity Reaction Status Date / Time cefdinir Allergy Skin Rash Verified 06/16/25 13:37 General Stated Complaint: Dizzy/Sync BIGG: 3 Review of Systems All systems reviewed & are unremarkable except as noted in HPI and below Exam Const General: cooperative and no acute distress HENMT Mouth: moist mucous membranes Eyes Conjunctivae: normal conjunctivae Sclera: normal sclerae EOM: EOM intact bilaterally Resp Auscultation: clear to auscultation bilaterally, no rales, no rhonchi and no wheezes Cardio Rate: regular rate and not tachycardic Rhythm: regular rhythm GI Palpation: soft, not firm, no guarding, no masses, not rigid and nontender Skin General skin exam: no rashes or lesions noted Neuro General: patient alert, patient awake, patient oriented x3 and tone normal Cranial Nerves: CN's II-XI intact bilaterally Cognition: normal cognition Speech: speech normal Motor: strength 5/5 throughout Sensory Exam: no sensory deficits noted Coordination: [id number] test normal, [id number] test normal and Romberg test normal Extrem General: no edema Psych Appearance: grossly normal Mental Status: mental status grossly normal Course Vital Signs Vital signs: Vital Signs Temperature 37.0 C 06/16/25 13:30 Pulse 72 06/16/25 13:30 Respiratory Rate 16 06/16/25 13:30 Blood Pressure 134/78 06/16/25 13:30 Pulse Oximetry 96 06/16/25 13:30 Temperature 37.0 C 06/16/25 13:30 Temperature Source Temporal Artery Scan 06/16/25 13:30 Pulse 72 06/16/25 13:30 Respiratory Rate 16 06/16/25 13:30 Blood Pressure 134/78 06/16/25 13:30 Pulse Oximetry 96 06/16/25 13:30 Oxygen Delivery Method Room Air 06/16/25 13:30 Oxygen Flow Rate 0 06/16/25 13:30 Lab/Test Results Lab/Test Results: Laboratory Tests Range/Units 06/16/25 13:38 WBC (4.4-10.8) 10^3/uL 6.30 RBC (4.36-5.78) 10^6/uL 3.40 L Hgb (13.5-17.5) g/dL 11.0 L Hct (40.0-50.0) % 32.7 L MCV (80-95) fL 96 H MCH (27.0-33.0) pg 32.4 MCHC (32.0-36.0) % 33.6 RDW (11.8-14.1) % 14.2 H Plt Count (130-400) 10^3/uL 250 MPV (8.0-11.0) fL 9.8 Immature Gran % % 0.3 Neutrophils % % 52.4 Lymphocytes % % 34.3 Monocytes % % 10.2 Eosinophils % % 2.5 Basophils % % 0.3 Nucleated RBC % (0.0-0.3) % 0.0 Absolute Neutrophils (1.2-6.7) 10^3/uL 3.30 Absolute Lymphocytes (1.2-3.4) 10^3/uL 2.16 Absolute Monocytes (0.1-0.8) 10^3/uL 0.64 Absolute Eosinophils (0.0-0.7) 10^3/uL 0.16 Absolute Basophils (0.0-0.2) 10^3/uL 0.02 Sodium (136-145) mmol/L 138 Potassium (3.5-5.1) mmol/L 4.0 Chloride (98-107) mmol/L 101 Carbon Dioxide (21.0-32.0) mmol/L 27.4 Anion Gap (3-11) mmol/L 9.6 BUN (7-18) mg/dL 20 H Creatinine (0.70-1.30) mg/dL 1.6 H Est GFR (CKD-EPI 2020) (mL/min/1.73m2) 45.50 Glucose (74-106) mg/dL 83 Calcium (8.5-10.1) mg/dL 9.0 Magnesium (1.8-2.4) mg/dL 1.9 Total Bilirubin (0.2-1.0) mg/dL 0.2 AST (15-37) U/L 16 ALT (16-63) U/L 16 Alkaline Phosphatase (46-116) U/L 80 Troponin I (<or=76) ng/L 9 Total Protein (6.4-8.2) g/dL 7.7 Albumin (3.4-5.0) g/dL 3.3 L Medical Decision Making ASSESSMENT AND PLAN Initial Assessment: 74-year-old male with history of chronic kidney disease stage IIIb, coronary artery disease, smoker, presents with dizziness and difficulty swallowing. History of carotid artery stenosis and esophageal mass under evaluation. Differential Diagnosis: - Carotid artery stenosis - History of right ICA 16-49% stenosis and left ICA 70-99% stenosis - Plan: Blood work, review outside hospital records - Will obtain CT of the head with CTA of the brain and neck - Esophageal mass - Difficulty swallowing, improved slightly - Plan: Further tests scheduled on 06/28/2025 - Consider cardiogenic etiology. EKG was reviewed and interpreted by me and nondiagnostic, please see report. Plan to continue cardiac monitoring. ED Course: - Patient neurologically intact at this time. Hemodynamically stable. - Reviewed outside hospital record, vascular surgery visit on 06/14/2025 - Duplex study performed at [facility] within the past few weeks: right ICA 16-49% stenosis, left ICA 70-99% stenosis. Clinical Impression: - Carotid artery stenosis - Esophageal mass Disposition: pending diagnostics and re-evaluation. Care signed out to oncoming provider MICHAEL Byers. This document was written with the assistance of NGHIA Brasher. The patient consented to its use. Lab Data Labs: Laboratory Tests Range/Units 06/16/25 13:38 WBC (4.4-10.8) 10^3/uL 6.30 RBC (4.36-5.78) 10^6/uL 3.40 L Hgb (13.5-17.5) g/dL 11.0 L Hct (40.0-50.0) % 32.7 L MCV (80-95) fL 96 H MCH (27.0-33.0) pg 32.4 MCHC (32.0-36.0) % 33.6 RDW (11.8-14.1) % 14.2 H Plt Count (130-400) 10^3/uL 250 MPV (8.0-11.0) fL 9.8 Immature Gran % % 0.3 Neutrophils % % 52.4 Lymphocytes % % 34.3 Monocytes % % 10.2 Eosinophils % % 2.5 Basophils % % 0.3 Nucleated RBC % (0.0-0.3) % 0.0 Absolute Neutrophils (1.2-6.7) 10^3/uL 3.30 Absolute Lymphocytes (1.2-3.4) 10^3/uL 2.16 Absolute Monocytes (0.1-0.8) 10^3/uL 0.64 Absolute Eosinophils (0.0-0.7) 10^3/uL 0.16 Absolute Basophils (0.0-0.2) 10^3/uL 0.02 Sodium (136-145) mmol/L 138 Potassium (3.5-5.1) mmol/L 4.0 Chloride (98-107) mmol/L 101 Carbon Dioxide (21.0-32.0) mmol/L 27.4 Anion Gap (3-11) mmol/L 9.6 BUN (7-18) mg/dL 20 H Creatinine (0.70-1.30) mg/dL 1.6 H Est GFR (CKD-EPI 2020) (mL/min/1.73m2) 45.50 Glucose (74-106) mg/dL 83 Calcium (8.5-10.1) mg/dL 9.0 Magnesium (1.8-2.4) mg/dL 1.9 Total Bilirubin (0.2-1.0) mg/dL 0.2 AST (15-37) U/L 16 ALT (16-63) U/L 16 Alkaline Phosphatase (46-116) U/L 80 Troponin I (<or=76) ng/L 9 Total Protein (6.4-8.2) g/dL 7.7 Albumin (3.4-5.0) g/dL 3.3 L PFSH All Active Problems Oropharyngeal dysphagia (Acute) Serum creatinine raised (Acute) Atrial tachycardia (Acute) History of hypotension (Acute) Dysphagia (Acute) Pruritic rash (Acute) Acute kidney injury (Acute) Heart failure (Acute) Nicotine dependence (Acute) Tobacco dependence (Acute) Heavy drinker (Acute) Alcohol abuse (Chronic) Alcohol dependence (Acute) Macrocytic anemia (Acute) Metabolic acidosis (Acute) Hyponatremia (Acute) Medical History Carotid stenosis, bilateral Chronic kidney disease, stage 3b Microscopic hematuria Myocardial infarction Overweight Monoclonal gammopathy Malignant melanoma Pneumonia Social History Smoking/Tobacco Use Status: Current every day Smoking risk assessment performed?: Yes Alcohol Intake: former Drug use: Never
[2025-06-16] MEDS: Normal Saline - Diluent 50 ML VIAL IJ (15:33)
[2025-06-16] MEDS: Omnipaque 350 MG/ML 100 ML BTL 70 ML IJ (15:34)
--- NOTE | 2025-06-16 16:44 | ED.PROG_ITS ---
Date of service: 06/16/25 Time of Service: 16:44 Medical Decision Making This dictation utilizes [id number] dictation software and may contain unedited grammatical errors. Patient seen in signout from Dr. Eze Correa, please see his complete note. Essentially, this 74-year-old male presents with 2 weeks of significant dizziness and near syncope, known severe left carotid stenosis greater than 80% on prior imaging. Patient has a known esophageal mass as well with planned surgery at [facility] it is unclear whether they were planning to address his carotid stenosis with endarterectomy simultaneously with addressing the esophageal mass, he is pending CTA results at signout and had a benign laboratory workup. Patients' medical history: Severe carotid stenosis, history of LA, malignant melanoma, oropharyngeal dysphagia, heart failure, alcohol abuse, severe tobacco use history. Differential / pathologies of concern include stroke, seizure, symptomatic carotid stenosis. Diagnostic studies of: -Reviewed prior studies. Interventions of: -Consulting with [facility] Vascular Surgery vs Endovascular Neuro - paged at [phone] - spoke at [phone] - they recommend tele-neuro and feel his symptoms are not related to his carotid stenosis. [facility] teleneuro was performed and they recommended that he be admitted stroke workup, and possible evaluation of brain mets. Dr. Zeng accepted for admission - Ordered 324mg ASA, 300mg plavix per Neuro consult ED Course/Assessment/Plan: 74-year-old male seen in signout with 2 to 3 weeks of dizziness followed by vascular surgery for a severe left carotid stenosis, known esophageal mass, vascular surgery and neurology do not find his symptoms congruent with his left carotid stenosis and recommend that he be admitted for MRI for further possible stroke workup versus brain mets with his known esophageal mass. He was stable throughout the visit and he was recommended to start aspirin and Plavix which were ordered, he has been unable to swallow his medications for the past week and a half, he can follow-up with elective surgical intervention of his mass and endarterectomy with [facility] vascular surgery and oncology. Dr. Zeng accepted for admission. Disposition of Left Carotid Stenosis, Esophageal Mass, Dizzness of Unknown Cause. Patient verbalized understanding of the plan and return to ED criteria and engaged in shared decision making. Medical Records Medical records reviewed: Yes I reviewed the patient's medical records. Imaging Data Radiologic Study: Attestation: I personally reviewed and interpreted this imaging study as follows: Imaging: CT Scan Radiologist's impression: EXAM: CT BRAIN NECK CTA CLINICAL HISTORY: dizziness, lt ica stenosis, esaph mass. TECHNIQUE: Imaging Protocol: Axial CT angiography was performed with multi- slice acquisition and multi-planar and/or 3D reconstructions. CONTRAST MATERIAL: Intravenous: Omnipaque 350 Contrast volume:structured data in ml COMPARISON: CT CT SOFT TISSUE NECK W/CONTRAST from 05/03/2025 FINDINGS: CTA Neck W: The malignant-appearing upper esophageal mass described on recent CT scan of 05/03/2025 is again noted. Abnormal wall thickness of the esophagus at this level is approximately 1.5 cm circumferentially. Aortic arch anatomy: With regards to the aortic arch anatomy it is noted that the left vertebral artery originates as an independent vessel off of the aortic arch. The right vertebral artery originates in conventional fashion off the right subclavian artery. Right vertebral artery is dominant Anterior circulation: Both common carotid arteries ascend with normal luminal diameters. On the left side there is calcified plaque at the left carotid bifurcation without a significant stenosis at this level but there is significant circumferential stenosis above this level in the proximal left internal carotid artery with estimated stenosis of 80-90 percent. No evidence of dissection. In the upper left neck of the left ICA exhibits normal diameter as well as within the skull base-carotid canal. On the opposite-right side the common carotid artery ascends with normal luminal diameter. However, there is some atherosclerotic disease in the brachiocephalic artery which is not completely included in the field of view. Acquired images in this study start above the takeoff points of the brachiocephalic and left common carotid arteries from the aortic arch. There is calcified and noncalcified plaque at the right carotid bulb and proximal right ICA. Estimated at approximately 50 percent stenosis in the proximal right ICA. No dissection. In the upper right neck the upper right ICA exhibits normal diameter as well as in the skull base-carotid canal. Posterior circulation: The dominant right vertebral artery originates in conventional fashion off the right subclavian artery. The non dominant left vertebral artery originates as an independent vessel off the aortic arch. Both vertebral arteries ascend in the foramen transverse area without evidence of significant stenosis nor dissection. At the skull base the basilar artery is formed predominately by the dominant right vertebral artery. CTA Brain W: Anterior circulation: Both internal carotid arteries are patent in the skull base-carotid canals. There is circumferential calcified plaque in the bilateral intra cavernous internal carotid arteries but without a critical stenosis at these levels. The supraclinoid aspects of the ICAs are patent. The right A1 segment is dominant. Both anterior cerebral arteries are patent and there is no aneurysm at the level the anterior communicating artery. Both middle cerebral arteries are patent with no evidence of significant stenosis nor intraluminal thrombus. There also no aneurysms of these vessels. Posterior circulation: Basilar artery ascends without significant stenosis. Distally it gives off bilateral superior cerebellar arteries. Above this level terminates as bilateral posterior cerebral arteries. Patent on the right side. On the left side there is also posterior communicating artery at into the flow within the left posterior cerebral artery. There is no evidence of aneurysm at the tip of the basilar artery nor elsewhere in the [id number]. CT BRAIN: There is no evidence of intracranial hemorrhage, mass effect, or shift of midline structures. There are no extra-axial fluid collections. Ventricles are not enlarged or shifted. There are no ring enhancing lesions in the brain and no abnormal meningeal enhancement. There is relatively symmetrical bilateral periventricular hypodensity consistent with chronic small vessel disease. There is no abnormal enhancement in these regions. IMPRESSION: 1. Suboptimal study as the origin of the brachiocephalic artery and left common carotid arteries off the aortic arch are not included in the field of view. There does appear to be some moderate atherosclerotic involvement of the partially visualized brachiocephalic artery. 2. There is significant stenosis in the proximal left internal carotid artery in the neck. The amount of stenosis at this level is estimated at 80-90 percent stenosis. Lesser amount of stenosis (approximately 50 percent) is seen in the proximal right ICA. 3. Patent vertebral arteries. The right vertebral artery is dominant. The left vertebral artery is noted to originate as an independent vessel off the aortic arch. No evidence of vertebral artery thrombosis nor dissection. 4. Patent intracranial arteries. No high-grade stenosis evident and no aneurysms nor evidence of vascular malformation. 5. There is symmetrical periventricular hypodensity in the brain consistent with chronic small vessel disease. There are no ring enhancing lesions in the brain. There is no abnormal meningeal enhancement. 6. 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 This was documented on outside CT scan of 05/03/2025 Lab Data Lab results reviewed: Yes I reviewed the patient's lab results. Labs: Laboratory Tests Range/Units 06/16/25 13:38 WBC (4.4-10.8) 10^3/uL 6.30 RBC (4.36-5.78) 10^6/uL 3.40 L Hgb (13.5-17.5) g/dL 11.0 L Hct (40.0-50.0) % 32.7 L MCV (80-95) fL 96 H MCH (27.0-33.0) pg 32.4 MCHC (32.0-36.0) % 33.6 RDW (11.8-14.1) % 14.2 H Plt Count (130-400) 10^3/uL 250 MPV (8.0-11.0) fL 9.8 Immature Gran % % 0.3 Neutrophils % % 52.4 Lymphocytes % % 34.3 Monocytes % % 10.2 Eosinophils % % 2.5 Basophils % % 0.3 Nucleated RBC % (0.0-0.3) % 0.0 Absolute Neutrophils (1.2-6.7) 10^3/uL 3.30 Absolute Lymphocytes (1.2-3.4) 10^3/uL 2.16 Absolute Monocytes (0.1-0.8) 10^3/uL 0.64 Absolute Eosinophils (0.0-0.7) 10^3/uL 0.16 Absolute Basophils (0.0-0.2) 10^3/uL 0.02 Sodium (136-145) mmol/L 138 Potassium (3.5-5.1) mmol/L 4.0 Chloride (98-107) mmol/L 101 Carbon Dioxide (21.0-32.0) mmol/L 27.4 Anion Gap (3-11) mmol/L 9.6 BUN (7-18) mg/dL 20 H Creatinine (0.70-1.30) mg/dL 1.6 H Est GFR (CKD-EPI 2020) (mL/min/1.73m2) 45.50 Glucose (74-106) mg/dL 83 Calcium (8.5-10.1) mg/dL 9.0 Magnesium (1.8-2.4) mg/dL 1.9 Total Bilirubin (0.2-1.0) mg/dL 0.2 AST (15-37) U/L 16 ALT (16-63) U/L 16 Alkaline Phosphatase (46-116) U/L 80 Troponin I (<or=76) ng/L 9 Total Protein (6.4-8.2) g/dL 7.7 Albumin (3.4-5.0) g/dL 3.3 L Quality:SDOH Health Related Social Needs: Health related social needs education Health related social needs details living in an apart ment and become a caregiver. Discharge Plan Disposition Patient Disposition: Admit to [facility] Condition: Stable Discharge Details Clinical Impression: Esophageal mass, Left carotid stenosis, Dizziness of unknown cause Admit Date/Time: 06/16/25 20:57 Admit Provider: Karl Zeng Attending Provider: Karl Zeng Primary Care Provider: Lewis Kelley ED Provider: Jake Byers Discharge Data Discharge Date/Time-TO BE ENTERED AT DEPARTURE: 06/16/25 22:42
--- NOTE | 2025-06-16 19:28 | NUR.NOTE ---
191 juan francisco saini on screen with PT Nursing Note:
--- NOTE | 2025-06-16 20:32 | W.PM.HP.N ---
Date of service: 06/16/25 Time of Service: 20:32 Assessment and Plan Assessment and plan (1) TIA (transient ischemic attack): Start date: 06/16/25 Status: Acute Assessment and plan: This is a 74-year-old gentleman with risk factors for stroke having episodes of intermittent and less than 1 minute dizzy spells. He has had no syncope. He does have to hang onto something when he has these episodes. He is on a baby aspirin daily and teleneurology did advise Plavix and aspirin with follow-up echocardiogram and MRI in the morning. He also have telemetry overnight. He does have a critical left internal carotid stenosis which is stable per vascular surgery. This will be addressed at [facility] in the near future. He does have a new onset of esophageal mass with dysphagia which will be evaluated as well and there may be some concern for metastatic disease though CTA of the head and neck are negative. He will be continued on atorvastatin high-dose at 80 mg from 40 mg. Metoprolol will be held for now with permissive hypertension. Patient will be evaluated by PT and OT prior to discharge. He is stable at this time and [facility] He is a full code. (2) Left carotid stenosis: Status: Chronic Assessment and plan: Up to 90% stenosis of internal left carotid which appears stable per vascular surgery. This will be addressed in the near future when patient has diagnosis and treatment of his esophageal mass. [facility] is aware of this problem. No immediate intervention was recommended. (3) Esophageal mass: Status: Chronic Assessment and plan: Patient has had weight loss of the 25 pounds and feels better with weight loss but cannot eat solid food. This is being worked up at [facility] with definitive treatment in near future. There is no tissue diagnosis. (4) CKD (chronic kidney disease) stage 3, GFR 30-59 ml/min: Status: Acute Assessment and plan: This appears stable and will be monitored while hospitalized. History of Present Illness History of Present Illness Chief Complaint: Intermittent dizzy spells with increasing frequency day of presentation. Narrative: This is a 74-year-old male patient who has history of critical stenosis of left internal carotid artery and recent onset of dysphagia with 25 pound weight loss over the last 2 to 3 months with ongoing workup of esophageal mass. He has been having intermittent episodes of acute onset dizziness where he has to hold onto something to avoid fainting but the world is not spinning. He has no associated nausea or vomiting with these episodes. He denies headache. He has no other focal neurological complaints during these episodes.these episodes have been occurring over the last 3 weeks with more frequent episodes the day of presentation having 2 episodes just prior to presentation. The episodes last only 30 seconds or less and are sudden onset and then self resolved. He has had no syncope. He reports the ED for evaluation and CT of the head and neck showed his known left internal carotid stenosis up to 90% but no other acute findings. He does have high risk for stroke being a smoker with hypertension. He also drinks daily having at least 2 drinks in the evening and sometimes drinking more than. He has never had alcohol withdrawal. He has never had previous stroke. As stated he has had weight loss recently with an esophageal mass and dysphagia been progressive tolerating on a full liquid diet. There are plans for tissue diagnosis and definitive treatment of his esophageal mass in the near future at which time they will also address his left internal carotid stenosis. He was on a baby aspirin and [facility] teleneurology did advise Plavix loading dose and aspirin loading dose. He will be admitted for observation with follow-up MRI and echocardiogram along with cardiac monitoring overnight. Consultation with [facility] vascular surgery occurred in the ED and they did not think that his left internal carotid artery stenosis was contribute to his acute symptoms but will be following him up at [facility] in the near future. He has a full code. Review of Systems Narrative: 13 point review of systems otherwise unrevealing or stable. [facility] All Active Problems (Updated 06/16/25 @ 20:42 by Karl Zeng) Left carotid stenosis (Chronic) CKD (chronic kidney disease) stage 3, GFR 30-59 ml/min (Acute) Esophageal mass (Chronic) TIA (transient ischemic attack) (Acute) Oropharyngeal dysphagia (Acute) Serum creatinine raised (Acute) Atrial tachycardia (Acute) History of hypotension (Acute) Dysphagia (Acute) Pruritic rash (Acute) Acute kidney injury (Acute) Heart failure (Acute) Nicotine dependence (Acute) Tobacco dependence (Acute) Heavy drinker (Acute) Alcohol abuse (Chronic) Alcohol dependence (Acute) Macrocytic anemia (Acute) Metabolic acidosis (Acute) Hyponatremia (Acute) Medical History Carotid stenosis, bilateral Chronic kidney disease, stage 3b Microscopic hematuria Myocardial infarction Overweight Monoclonal gammopathy Malignant melanoma Pneumonia Social History Smoking/Tobacco Use Status: Current every day Smoking risk assessment performed?: Yes Alcohol Intake: former Drug use: Never Housing: apartment Meds Allergies and Home Medications Allergies Allergy/AdvReac Type Severity Reaction Status Date / Time cefdinir Allergy Skin Rash Verified 06/16/25 13:37 Home Medications ?Medication ?Instructions ?Recorded ?Confirmed ?Type aspirin 81 mg tablet,delayed 81 mg PO DAILY 06/01/24 06/16/25 History release (Adult Aspirin Regimen) atorvastatin 40 mg tablet 40 mg PO DAILY 06/01/24 06/16/25 History metoprolol succinate 25 mg 25 mg PO DAILY 06/01/24 06/16/25 History tablet,extended release 24 hr bupropion HCl 150 mg 24 hr tablet, 150 mg PO DAILY 05/20/25 06/16/25 History extended release (Wellbutrin XL) folic acid 1 mg tablet 1 mg PO DAILY 05/20/25 06/16/25 History magnesium oxide 400 mg PO DAILY 05/20/25 06/16/25 History Exam Narrative Exam Narrative: General: Patient appears appropriate for age, thinly built, alert and oriented x 3 and in no acute distress. He has a normal voice with speaking. HEENT: Normocephalic, eyes with pupils equal and reactive to light symmetrically, extraocular movement intact and sclera anicteric. Oropharynx with moist mucosa and fair dentition. Neck: Supple without JVD. Back: Normal posture without CVA tenderness. Lungs: Fair aeration and clear to auscultation percussion with no focalizing rales or rhonchi. Bronchovesicular breath sounds diffusely. No expiratory wheeze. Heart: Regular rate and rhythm with no murmurs or gallops appreciated. Abdomen: Normal contour, soft and nontender to palpation with no palpable hepatosplenomegaly. Bowel sounds positive all quadrants. Genitalia/rectal: Exam deferred. Skin: Darkly tanned, rough texture, otherwise normal color with skin warm and dry. Extremities: Without clubbing, cyanosis or pitting edema. Fair capillary refill. Neuro: Cranial nerves II through XII grossly intact, no focalizing motor deficits or tremor. DTRs physiologic and symmetrical. No Babinski. Cerebellar testing was not performed with patient lying in bed. See teleneurology note for full exam remotely. Psych: Normal affect and mood. No abnormal thought processes. Remote and recent memory intact. Results Imaging Additional studies: Echocardiogram performed 05/24/2024 revealed preserved left ventricular ejection fraction 60 to 65% with normal diastolic indices, no wall motion abnormalities and normal valves and atria. Imaging Studies: EXAM: CT BRAIN NECK CTA Date of exam: 06/16/2025 CLINICAL HISTORY: dizziness, lt ica stenosis, esaph mass. TECHNIQUE: Imaging Protocol: Axial CT angiography was performed with multi-slice acquisition and multi-planar and/or 3D reconstructions. CONTRAST MATERIAL: Intravenous: Omnipaque 350 Contrast volume:structured data in ml COMPARISON: CT CT SOFT TISSUE NECK W/CONTRAST from 05/03/2025 FINDINGS: CTA Neck W: The malignant-appearing upper esophageal mass described on recent CT scan of 05/03/2025 is again noted. Abnormal wall thickness of the esophagus at this level is approximately 1.5 cm circumferentially. Aortic arch anatomy: With regards to the aortic arch anatomy it is noted that the left vertebral artery originates as an independent vessel off of the aortic arch. The right vertebral artery originates in conventional fashion off the right subclavian artery. Right vertebral artery is dominant Anterior circulation: Both common carotid arteries ascend with normal luminal diameters. On the left side there is calcified plaque at the left carotid bifurcation without a significant stenosis at this level but there is significant circumferential stenosis above this level in the proximal left internal carotid artery with estimated stenosis of 80-90 percent. No evidence of dissection. In the upper left neck of the left ICA exhibits normal diameter as well as within the skull base-carotid canal. On the opposite-right side the common carotid artery ascends with normal luminal diameter. However, there is some atherosclerotic disease in the brachiocephalic artery which is not completely included in the field of view. Acquired images in this study start above the takeoff points of the brachiocephalic and left common carotid arteries from the aortic arch. There is calcified and noncalcified plaque at the right carotid bulb and proximal right ICA. Estimated at approximately 50 percent stenosis in the proximal right ICA. No dissection. In the upper right neck the upper right ICA exhibits normal diameter as well as in the skull base-carotid canal. Posterior circulation: The dominant right vertebral artery originates in conventional fashion off the right subclavian artery. The non dominant left vertebral artery originates as an independent vessel off the aortic arch. Both vertebral arteries ascend in the foramen transverse area without evidence of significant stenosis nor dissection. At the skull base the basilar artery is formed predominately by the dominant right vertebral artery. CTA Brain W: Anterior circulation: Both internal carotid arteries are patent in the skull base-carotid canals. There is circumferential calcified plaque in the bilateral intra cavernous internal carotid arteries but without a critical stenosis at these levels. The supraclinoid aspects of the ICAs are patent. The right A1 segment is dominant. Both anterior cerebral arteries are patent and there is no aneurysm at the level the anterior communicating artery. Both middle cerebral arteries are patent with no evidence of significant stenosis nor intraluminal thrombus. There also no aneurysms of these vessels. Posterior circulation: Basilar artery ascends without significant stenosis. Distally it gives off bilateral superior cerebellar arteries. Above this level terminates as bilateral posterior cerebral arteries. Patent on the right side. On the left side there is also posterior communicating artery at into the flow within the left posterior cerebral artery. There is no evidence of aneurysm at the tip of the basilar artery nor elsewhere in the [id number]. CT BRAIN: There is no evidence of intracranial hemorrhage, mass effect, or shift of midline structures. There are no extra-axial fluid collections. Ventricles are not enlarged or shifted. There are no ring enhancing lesions in the brain and no abnormal meningeal enhancement. There is relatively symmetrical bilateral periventricular hypodensity consistent with chronic small vessel disease. There is no abnormal enhancement in these regions. IMPRESSION: 1. Suboptimal study as the origin of the brachiocephalic artery and left common carotid arteries off the aortic arch are not included in the field of view. There does appear to be some moderate atherosclerotic involvement of the partially visualized brachiocephalic artery. 2. There is significant stenosis in the proximal left internal carotid artery in the neck. The amount of stenosis at this level is estimated at 80-90 percent stenosis. Lesser amount of stenosis (approximately 50 percent) is seen in the proximal right ICA. 3. Patent vertebral arteries. The right vertebral artery is dominant. The left vertebral artery is noted to originate as an independent vessel off the aortic arch. No evidence of vertebral artery thrombosis nor dissection. 4. Patent intracranial arteries. No high-grade stenosis evident and no aneurysms nor evidence of vascular malformation. 5. There is symmetrical periventricular hypodensity in the brain consistent with chronic small vessel disease. There are no ring enhancing lesions in the brain. There is no abnormal meningeal enhancement. 6. 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 This was documented on outside CT scan of 05/03/2025 Labs 06/17/25 06:36 06/17/25 06:36 Labs: Laboratory Results - last 24 hr 06/16/25 13:38 WBC 6.30 RBC 3.40 L Hgb 11.0 L Hct 32.7 L MCV 96 H MCH 32.4 MCHC 33.6 RDW 14.2 H Plt Count 250 MPV 9.8 Immature Gran % 0.3 Neutrophils % 52.4 Lymphocytes % 34.3 Monocytes % 10.2 Eosinophils % 2.5 Basophils % 0.3 Nucleated RBC % 0.0 Absolute Neutrophils 3.30 Absolute Lymphocytes 2.16 Absolute Monocytes 0.64 Absolute Eosinophils 0.16 Absolute Basophils 0.02 Sodium 138 Potassium 4.0 Chloride 101 Carbon Dioxide 27.4 Anion Gap 9.6 BUN 20 H Creatinine 1.6 H Est GFR (CKD-EPI 2020) 45.50 Glucose 83 Calcium 9.0 Magnesium 1.9 Total Bilirubin 0.2 AST 16 ALT 16 Alkaline Phosphatase 80 Troponin I 9 Total Protein 7.7 Albumin 3.3 L Last Vital Signs Temp 37.0 C 06/16/25 13:30 Pulse 67 06/16/25 20:20 Resp 16 06/16/25 20:20 BP 148/87 H 06/16/25 20:00 Pulse Ox 96 06/16/25 20:20 Time Spent Time spent with Patient: >75 minutes Time was spent: preparing to see the patient(eg.review tests), obtaining and/or reviewing separately otained hiistory, ordering medications,tests, procedures, referring, communicating with other health child caregiver, indepentently interpreting results, counseling the patient and care coordination
[2025-06-16] MEDS: Clopidogrel 300 MG TAB PO (20:47)
[2025-06-16] MEDS: Aspirin 81 MG CHEW 324 MG CH (20:48)
[2025-06-16 22:16] LABS: COVID-19 PCR Negative (Negative); RSV PCR Negative (Negative)
--- NOTE | 2025-06-16 22:22 | W.PC.ACHO ---
Registration Status: REG ER Primary Language: Preferred Language: Pashto ED Information & Data Chief Complaint Dizzy/Sync 06/16/25 15:02 Triage Note BIBA 2wks dizziness, right 06/16/25 13:30 carotid 50% occluded, BS 104 prior to arrival had 2 dizzy episodes today[place] [place] he go to ED to get evaluated Medical / Surgical History (Last Reviewed 06/16/25 @ 20:32 by Karl Zeng) Carotid stenosis, bilateral Chronic kidney disease, stage 3b Microscopic hematuria Myocardial infarction Overweight Monoclonal gammopathy Malignant melanoma Pneumonia Most Recent Vital Signs Temperature 37.0 C 06/16/25 13:30 Temperature Source Temporal Artery Scan 06/16/25 13:30 Pulse 62 06/16/25 21:01 Pulse 62 06/16/25 21:01 Respiratory Rate 20 06/16/25 21:01 Respiratory Effort Normal 06/16/25 18:31 Respiratory Depth Normal 06/16/25 18:31 Respiratory Pattern Normal 06/16/25 18:31 Blood Pressure 142/86 H 06/16/25 21:00 Blood Pressure Mean 105 06/16/25 21:00 Pulse Oximetry 94 06/16/25 21:01 Oxygen Delivery Method Room Air 06/16/25 13:30 Oxygen Flow Rate 0 06/16/25 13:30 Allergies cefdinir Allergy (Verified 06/16/25 13:37) Skin Rash Precautions Isolation Standard precaution 06/16/25 13:53 Active Medications Generic Name Dose Route Start Last Admin Trade Name Freq PRN Reason Stop Dose Admin Iohexol 70 ml 06/16/25 15:45 06/16/25 15:34 Omnipaque 350 Mg/Ml 100 Ml Btl IJ 07/16/25 23:59 70 ml DIRECTED CISCO Administration Sodium Chloride 50 ml 06/16/25 15:45 06/16/25 15:33 Normal Saline - Diluent 50 Ml Vial IJ 50 ml .FOR DI USE CISCO Administration IV IV Catheter Type [Left Saline Lock Antecubital] IV Catheter Gauge [Left 20 Antecubital] Diagnostics 06/16/25 06/16/25 Range/Units 21:35 13:38 WBC 6.30 (4.4-10.8) 10^3/uL RBC 3.40 L (4.36-5.78) 10^6/uL Hgb 11.0 L (13.5-17.5) g/dL Hct 32.7 L (40.0-50.0) % MCV 96 H (80-95) fL MCH 32.4 (27.0-33.0) pg MCHC 33.6 (32.0-36.0) % RDW 14.2 H (11.8-14.1) % Plt Count 250 (130-400) 10^3/uL MPV 9.8 (8.0-11.0) fL Immature Gran % 0.3 % Neutrophils % 52.4 % Lymphocytes % 34.3 % Monocytes % 10.2 % Eosinophils % 2.5 % Basophils % 0.3 % Nucleated RBC % 0.0 (0.0-0.3) % Absolute Neutrophils 3.30 (1.2-6.7) 10^3/uL Absolute Lymphocytes 2.16 (1.2-3.4) 10^3/uL Absolute Monocytes 0.64 (0.1-0.8) 10^3/uL Absolute Eosinophils 0.16 (0.0-0.7) 10^3/uL Absolute Basophils 0.02 (0.0-0.2) 10^3/uL Sodium 138 (136-145) mmol/L Potassium 4.0 (3.5-5.1) mmol/L Chloride 101 (98-107) mmol/L Carbon Dioxide 27.4 (21.0-32.0) mmol/L Anion Gap 9.6 (3-11) mmol/L BUN 20 H (7-18) mg/dL Creatinine 1.6 H (0.70-1.30) mg/dL Est GFR (CKD-EPI 2020) 45.50 (mL/min/1.73m2) Glucose 83 (74-106) mg/dL Calcium 9.0 (8.5-10.1) mg/dL Magnesium 1.9 (1.8-2.4) mg/dL Total Bilirubin 0.2 (0.2-1.0) mg/dL AST 16 (15-37) U/L ALT 16 (16-63) U/L Alkaline Phosphatase 80 (46-116) U/L Troponin I 9 (<or=76) ng/L Total Protein 7.7 (6.4-8.2) g/dL Albumin 3.3 L (3.4-5.0) g/dL COVID-19 Source Nasopharynx SARS-CoV-2 (PCR) Negative (Negative) Influenza Type A (PCR) Negative (Negative) Influenza Type B (PCR) Negative (Negative) RSV (PCR) Negative (Negative) Intake and Output - 24 Hour Total 06/16/25 13:12 thru 06/16/25 18:33 Intake Total 10 Balance 10 Weight 73.482 kg Intake: IV 10 Falls Risk Assessment History of Falls No History 06/16/25 18:31 Fall Total Score 0 06/16/25 18:31 Level of Risk Standard/Low Risk 06/16/25 18:31 Problems (Last Reviewed 06/16/25 @ 20:32 by Karl Zeng) Left carotid stenosis (Chronic) CKD (chronic kidney disease) stage 3, GFR 30-59 ml/min (Acute) Esophageal mass (Chronic) TIA (transient ischemic attack) (Acute) Notes 06/16/25 19:28 Nursing Notes by Lee Foster 1912 tele nuro on screen with PT Nursing Note: Initialized on 06/16/25 19:28 - END OF NOTE 06/16/25 13:41 Nursing Notes by Leann Torre Nursing Note: PT said he has not taken his pills for about 1.5wks has been dizzy for approx 2wks Initialized on 06/16/25 13:41 - END OF NOTE v v v v v v v v v Sending and/or Receiving Nurses: Please use comment section below to note any information pertinent to the patient hand-off not included above. Information / Comments: Report taken from ED RN Lee, patient brought to ER for 2 weeks significant dizziness and near syncope., 50% occlusion on carotid arter. Plavix and baby ASA given. ; has g.20 on Lt. AC; able to stand with minimal assist. Alert and oriented. All questions asked answered appropriately. Report received from:
[2025-06-17 02:25] VITALS: BP 139/87; PULSE 62; RESP 18; TEMP 36.4; O2SAT 97
[2025-06-17 02:42] LABS: Glucose Negative (Negative)
[2025-06-17 02:46] LABS: C & S Indicated? No; WBC Negative HPF (0-5)
[2025-06-17 07:05] LABS: HCT 32.1 % (40.0-50.0); HGB 10.6 g/dL (13.5-17.5); MCH 31.6 pg (27.0-33.0); MCHC 33.0 % (32.0-36.0); MCV 96 fL (80-95); MPV 9.5 fL (8.0-11.0); Platelet Count 212 10^3/uL (130-400); RBC 3.35 10^6/uL (4.36-5.78); RDW 14.0 % (11.8-14.1); RDW-SD 50.0 fL; WBC 4.86 10^3/uL (4.4-10.8)
[2025-06-17 07:17] LABS: ALT 15 U/L (16-63); AST 16 U/L (15-37); Albumin 3.1 g/dL (3.4-5.0); Alkaline Phosphatase 84 U/L (46-116); Anion Gap 9.4 mmol/L (3-11); BUN 20 mg/dL (7-18); Bilirubin, Total 0.4 mg/dL (0.2-1.0); CO2 26.6 mmol/L (21.0-32.0); Calcium 8.8 mg/dL (8.5-10.1); Chloride 101 mmol/L (98-107); Estimated GFR 53.40 (mL/min/1.73m2); Glucose 91 mg/dL (74-106); Magnesium 1.9 mg/dL (1.8-2.4); Potassium 4.1 mmol/L (3.5-5.1); Sodium 137 mmol/L (136-145); Total Protein 7.4 g/dL (6.4-8.2)
[2025-06-17 07:30] VITALS: BP 147/79; PULSE 61; RESP 16; TEMP 36.6; O2SAT 98
--- NOTE | 2025-06-17 08:00 | DI.MRI_ITS ---
Exam(s) MR BRAIN WO EXAM: MR BRAIN WO CLINICAL HISTORY: TIA TECHNIQUE: Multiplanar multisequence MRI of the brain was performed. COMPARISON: No exams were available for comparison FINDINGS: CEREBRAL PARENCHYMA: There is no evidence of intracranial hemorrhage, mass effect, or shift of midline structures. There are no extra-axial fluid collections. Ventricles are not enlarged or shifted. There is no evidence of cerebellar tonsillar ectopia. There is no significant focal signal abnormality in the cerebellar hemispheres. Some increased signal in the central karissa is noted as well as patchy and confluent bilateral periventricular signal abnormality consistent chronic small vessel disease, not associated with hemorrhage, surrounding edema nor restricted diffusion on DWI imaging. PITUITARY GLAND: No mass nor parasellar abnormality. No obvious abnormality in the cavernous sinuses. FLOW VOIDS: The expected flow void are noted. No evidence of obvious aneurysm nor obvious vascular malformation. PARANASAL SINUSES: The visualized paranasal sinuses appear unremarkable. No obvious finding ORBITS: No obvious findings. IMPRESSION: There is abundant bilateral jaylyn and supra ventricular white matter signal abnormality consistent with chronic small vessel disease and similar findings are also seen in the central karissa. None of these areas are associated with hemorrhage and there is no evidence of restricted diffusion to suggest recent ischemic event. Recent CTA study performed yesterday reveals high-grade stenosis in the proximal left ICA in the neck and approximately 50 percent stenosis in the proximal right ICA in the neck. Vertebral arteries were demonstrated to be patent, with the right vertebral artery being dominant. DATA REPOSITORY:
[2025-06-17] MEDS: Atorvastatin 40 MG TAB 80 MG PO (08:08)
[2025-06-17] MEDS: Folic Acid 1 MG TAB PO (08:09)
[2025-06-17] MEDS: Magnesium Oxide 400 MG TAB PO (08:09)
[2025-06-17] MEDS: buPROPion-XL 150 MG TABCR PO (08:09)
[2025-06-17] MEDS: Clopidogrel 75 MG TAB PO (08:09)
[2025-06-17] MEDS: Aspirin E.C. 81 MG TABEC PO (08:09)
[2025-06-17] MEDS: Normal Saline Flush 10 ML SYR IVP ×2 (08:09→22:00)
[2025-06-17] MEDS: Enoxaparin 40 MG/0.4 ML SYR SC (08:10)
[2025-06-17 11:24] VITALS: BP 139/86; PULSE 58; RESP 14; TEMP 36.4; O2SAT 98
--- NOTE | 2025-06-17 11:43 | IN_ITS ---
PT Notes Visit Reasons: TIA, Esophageal mass, CKD Physical Therapy Inpatient Initial Evaluation Date: 06/17/2025 Referring Doctor: Karl Zeng MD PT Orders: PT CONSULT: D/C Non-PT Dependent Precautions: Fall. Standard. Activity as tolerated. Patient Profile/Admitting Diagnosis: Lewis is a 74-year-old male admitted for CVA work up with suspeeeected TIA vs CVA., L carotid stenosis, esophageal mass, dysphagia with 25 lb weight loss, and CKd. PMHX: All Active Problems (Updated 06/16/25 @ 20:42 by Karl Zeng) Left carotid stenosis (Chronic) CKD (chronic kidney disease) stage 3, GFR 30-59 ml/min (Acute) Esophageal mass (Chronic) TIA (transient ischemic attack) (Acute) Oropharyngeal dysphagia (Acute) Serum creatinine raised (Acute) Atrial tachycardia (Acute) History of hypotension (Acute) Dysphagia (Acute) Pruritic rash (Acute) Acute kidney injury (Acute) Heart failure (Acute) Nicotine dependence (Acute) Tobacco dependence (Acute) Heavy drinker (Acute) Alcohol abuse (Chronic) Alcohol dependence (Acute) Macrocytic anemia (Acute) Metabolic acidosis (Acute) Hyponatremia (Acute) Medical History Carotid stenosis, bilateral Chronic kidney disease, stage 3b Microscopic hematuria Myocardial infarction Overweight Monoclonal gammopathy Malignant melanoma Pneumonia Social History/Home Situation: Independent with all aspects of ADLs prior to admission. Has 5 steps to enter with rails on B sides. Equipment Owned/DME: None Subjective: Denied headache, chest pain, and lightheadedness throughout session Objective: General Observation: Telemetry monitoring in place. Mental Status: Alert and oriented as to person, place, time, and purpose. Able to pay attention, focus, and respond appropriately. Pain: None reported Vital Signs: Monitored via tele ROM: Right Upper Extremity: Shoulder Flexion WFL. Shoulder abduction WFL. Elbow flexion WFL. Wrist flexion WFL. Functional opening and closing of hand WFL. Left Upper Extremity: Shoulder Flexion WFL. Shoulder abduction WFL. Elbow flexion WFL. Wrist flexion WFL. Functional opening and closing of hand WFL. Right Lower Extremity: Hip flexion WFL. Hip abduction WFL. Knee flexion WFL. Ankle dorsiflexion WFL. Ankle plantarflexion WFL. Left Lower Extremity: Hip flexion WFL. Hip abduction WFL. Knee flexion WFL. Ankle dorsiflexion WFL. Ankle plantarflexion WFL. Strength: Right Upper Extremity: Shoulder flexors 4/5. Shoulder abductors 4/5. Elbow flexors 5/5. Elbow extensors 5/5. Store Administrator strong. Left Upper Extremity: Shoulder flexors 4/5. Shoulder abductors 4/5. Elbow flexors 5/5. Elbow extensors 5/5. Store Administrator strong. Right Lower Extremity: Hip flexors 4/5. Hip abductors 4/5. Knee flexors 5/5. Knee extensors 4/5. Ankle dorsiflexors 4/5. Ankle plantarflexors 4/5. Left Lower Extremity: Hip flexors 4/5. Hip abductors 4/5. Knee flexors 5/5. Knee extensors 4/5. Ankle dorsiflexors 4/5. Ankle plantarflexors 4/5. Bed Mobility/Transfers: Minimal cueing provided for use of B hands as needed for support, movement sequence, AD management, and posture to reduce fall risk and minimize pain report Rolling independent Supine to sit independent Sit to supine indpendent Sit to stand independent Stand to sit independent Bed to reclining chair supervision without device Reclining chair to bed supervision without device Gait: 300 feet with level surface ambulation without an assistive device with mild path deviation and decreased gait speed per patient report. Stairs: Guided patient with stair negotiation of 3 x 4-inch steps and 2 x 6-inch steps without assistive device with conatct gaurd assit only. Balance: Static Sitting: Normal Dynamic Sitting: Normal Static Standing: Normal Dynamic Standing: Good 30-second chair rise score: 11 in half a minute Rapid alternating movement: Inatct 4-Stage balance test: Feet together 10 seonds Semi=tandem 10 seocnds Full tandem 8 seconds One-legged stance deferred Special Tests: Mobility Limitations Standardized Measure [facility] AM-PAC 6 clicks Basic Mobility Inpatient Short Form: Raw Score: 23 CMS Score: 11% deficit Informed Consent/Education: Patient was instructed in purpose of PT consult and plan of care. Agreeable to proceed with established PT POC to achieve personal goals. Assessment: B UE/LE symmetric. Patient did not require any assistive device with med surg hallway ambulation at time of evaluation with mild path deviaation and decreased gait speed. Patient presented with clinical signs and symptoms consistent with current/admitting diagnoses that have resulted to the following impairment level findings: 1. Impaired standing balance 2. Impaired activity tolerance Impairments are contributing to the following functional limitations: 1. Increased completion time for mobility ADL performance 2. Increased risk for falls Patient is assessed as a 22316 low complexity based on the following: History: 74-year-old male with past medical history as indicated above Examination: As above Presentation: Stable Decision Makin moderate complexity Goals: Goals X1 week 1. Supine-Sit independent 2. Sit-Supine independent 3. Sit-Stand independent 4. Stand-Sit independent with no assistive device 5. Bed-Chair independent with no assistive device 6. Chair-Bed independent with no assistive device 7. Independent gait on level surface with use of no assistive device for at least 300 feet without report of pain nor dyspnea 8. Independent stair negotiation while holding onto B rails for at least 8 steps without report of pain nor dyspnea 9. Independent with home exercise program 10. Good static and dynamic standing balance/tolerance Plan of Care/Treatment Plan: 1-2x/day, 7 days/week x 1 week. Plan of care has been reviewed with the [employer] MACHINE TENDER providing the service under Physical Therapy direction. Initiate Physical Therapy intervention for pain management as needed, strengthening, bed mobility, transfers, gait, stairs, balance training, and use of assistive device. --See patient for one more session for balance training and HEP instruction. Assess for upgrade to indpendent hallway ambulation as appropriate. DISCHARGE RECOMMENDATIONS: PT TREATMENT CODE/TIME: 86783 x 20 minutes for 1 unit (11:43?12:03). Thank you for the opportunity to participate in the care of this patient. Mariajose Frye PT, DPT, CLT [facility] [place], [place]
--- NOTE | 2025-06-17 15:36 | PTTR_ITS ---
PT Notes Visit Reasons: TIA, Esophageal mass, CKD Date: 06/17/2025 PRECAUTIONS: Fall. Standard. Activity as tolerated. SUBJECTIVE: pt in bed when approached for therapy this afternoon, agreed to participating with home exercise program. OBJECTIVE: ? PAIN: non reported VITALS: Monitored by nursing Therapeutic Activities 04654: Direct one-on-one instruction in dynamic activities to improve functional performance. ?? BED MOBILITY/TRANSFERS? Rolling L/R: independent Supine-sit: ?independent ? Sit-supine: ?independent? Sit-stand: ? independent? Stand-sit: ?independent? Bed-Chair:? independent? Chair-bed: independent Provided skilled cues and instruction on performance and technique throughout. Gait Training 88691: Direct one-on-one instruction and skilled instruction in: Movement sequencing Provided instruction in gait pattern Patient education regarding pacing and breathing techniques to maximize activity tolerance? GAIT? Assistive Device: ?no AD ? Weight bearing: FWB Assist: Supervision? Distance:??Room mobility going in and out of toilet ? Deviation: ?Slow gait speed, low step height, short step length. ? Therapeutic Exercises 65549: Direct one-on-one instruction in therapeutic exercises to develop strength, endurance, range of motion and flexibility. Exercises Access Code: [email or web address] URL: [email or web address] Date: 06/17/2025 Prepared by: Demarcus Frye Exercises - Supine Bridge - 1 x daily - 7 x weekly - 1 sets - 10 reps - Supine Straight Leg Raise - 1 x daily - 7 x weekly - 1 sets - 10 reps - Beginner Side Leg Lift - 1 x daily - 7 x weekly - 1 sets - 10 reps - Supine Lower Trunk Rotation - 1 x daily - 7 x weekly - 1 sets - 10 reps - Seated Long Arc Quad - 1 x daily - 7 x weekly - 1 sets - 10 reps - Seated March - 1 x daily - 7 x weekly - 1 sets - 10 reps - Seated March With Hip External Rotation - 1 x daily - 7 x weekly - 1 sets - 10 reps - Seated Hip Internal Rotation AROM - 1 x daily - 7 x weekly - 1 sets - 10 reps - Sit to Stand - 1 x daily - 7 x weekly - 1 sets - 10 reps - Standing Hip Abduction with Counter Support - 1 x daily - 7 x weekly - 1 sets - 10 reps - Standing Hip Extension with Counter Support - 1 x daily - 7 x weekly - 1 sets - 10 reps - Standing March with Counter Support - 1 x daily - 7 x weekly - 1 sets - 10 reps - Mini Squat with Counter Support - 1 x daily - 7 x weekly - 1 sets - 10 reps - Standing Heel Raise with Support - 1 x daily - 7 x weekly - 1 sets - 10 reps - Standing Toe raise with support - 1 x daily - 7 x weekly - 1 sets - 10 reps Provided skilled instruction in proper exercise performance Provided skilled manual cues to facilitate proper muscle recruitment and/or form: ASSESSMENT:?Pt tolerated activity well, able to perform exrecise using paper copy for guidance. PLAN: Per PT continue with HEP performance BID may walk in the hallway as tolerated without AD. TREATMENT CODE/TIME: 67548r9 30mins (3:00-3:30pm)
[2025-06-17 16:21] VITALS: BP 148/84; PULSE 64; RESP 16; TEMP 36.3; O2SAT 93
--- NOTE | 2025-06-17 17:12 | INITIAL_ITS ---
Date of service: 06/17/25 Time of Service: 17:12 Care Management Initial Assmt Initial Assessment Reason for Hospitalization: TIA, esophageal mass, CKD Functional Status/Living Situation Patient Presentation: Lewis was lying in bed, when CM arrived. He presented to the ED 2 weeks of significant dizziness and near syncope. Lewis states he is feeling much better today. 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 Lewis reports that he is independent at baseline. Per Lewis, he shares a car with a friend for transportation. Lewis reports he is followed by doctors at [facility], but cannot recall specific doctors or specialties; He does recall he has an appointment at [facility] on June 28. Lewis states he feels well supported at home, and does not have a need for increased supports at this time. He was seen by PT, who recommend PT. Palliative consult was requested. CM will continue to follow. Town of Residence: [place] Resides with: Other (Client - Lewis is his caregiver) Significant Other/Family: Local (he has both family locally and out of the area. He reports he has 3 sons, 2 daughters. 13 grandchildren and 7 great grandchildren. 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[employer]) Medications Medication Management: No Issues/Barriers identified (Medications mailed) Advance Directives Advance Directives: Do you have an Advance Directive: N , 13:21 AD On File at [facility]: N 08/18/16, 13:21 Date Asked 06/16/25 06/16/25, 13:38 AD Date Reviewed COLST On File at [facility] COLST Date Scanned Code Status Resuscitation Status Full Code Portal Pt does not currently have a portal and education provided: Yes Insurance Coverage/Financial Issues Insurance: [employer] Medicare Replacement - [id number] Medicaid [facility] - [id number] Care Team Visit Care Team Role Provider Type Lewis Kelley Primary Care Provider NON-[facility] STAFF PHYSICIAN Lisa Zhu Other Providers REG OCCUPATIONAL THERAPIST [facility] Other Providers OTHER MICHAEL Schneider Emergency Provider PHYSICIANS ASSISTANT Karl Zeng Admit Provider NON-[facility] STAFF PHYSICIAN Attending Provider Discharge Potential Discharge Needs: PT Evaluation (Rec. PT ) and PCP F/U Appt Anticipated Barriers to Discharge: Medical Status Patient/Family Education Needs: Review discharge instructions, discuss Ask Me Three Transportation: Private vehicle Plan: Anticipate Lewis will be discharged home once medically ready with new PT. He will follow up with his community providers and discharge plan of care. Lewis will transport via private vehicle. CM will continue to follow. Social Determinants of Health Screening Social Determinants of health last assessed in clinic: 06/17/25 Will the Patient Participate in the Screening?: Yes Do you worry about having a steady place to live?: no Problems where you live: no known problems In the past 12 months, have you had to go without electric, gas, oil or water in your home?: no 1. Within the past 12 months, we worried whether our food would run out before we got money to buy more.: Never true 2. Within the past 12 months, the food we bought just didn't last and we didn't have money to get more.: Never true Has lack of transportation kept you from medical appointments or from doing things needed for daily living?: no Has anyone in your life made you feel unsafe or unsupported?: no How hard is it for you to pay for the very basics like food, housing, medical care, and heating? Would you say it is:: Not hard at all Do you want help finding or keeping work or a job?: I do not need or want help If for any reason you need help with day-to-day activities such as bathing, preparing meals, shopping, managing finances, etc., do you get the help you need?: I don?t need any help How often do you feel lonely or isolated from those around you?: Never Do you speak a language other than Omani at home?: Yes Does the patient want assistance with any of the above?: No Health Related Social Needs Health related social needs: education (Z55.6) Health related social needs details: living in an apartment and become a caregiver. PFSH All Active Problems (Updated 06/17/25 @ 15:00 by MICHAEL Schneider) Dizziness of unknown cause (Acute) Left carotid stenosis (Acute) Left carotid stenosis (Chronic) CKD (chronic kidney disease) stage 3, GFR 30-59 ml/min (Acute) Esophageal mass (Chronic) TIA (transient ischemic attack) (Acute) Oropharyngeal dysphagia (Acute) Serum creatinine raised (Acute) Atrial tachycardia (Acute) History of hypotension (Acute) Dysphagia (Acute) Pruritic rash (Acute) Acute kidney injury (Acute) Heart failure (Acute) Nicotine dependence (Acute) Tobacco dependence (Acute) Heavy drinker (Acute) Alcohol abuse (Chronic) Alcohol dependence (Acute) Macrocytic anemia (Acute) Metabolic acidosis (Acute) Hyponatremia (Acute) Medical History Carotid stenosis, bilateral Chronic kidney disease, stage 3b Microscopic hematuria Myocardial infarction Overweight Monoclonal gammopathy Malignant melanoma Pneumonia Social History Smoking/Tobacco Use Status: Current every day Smoking risk assessment performed?: Yes Alcohol Intake: former Drug use: Never Housing: apartment Readmission Within the Past 30 Days Yes or No: No
--- NOTE | 2025-06-17 17:49 | PGE_ITS ---
Date of Service Date of service: 06/17/25 Time of Service: 17:49 Assessment and Plan Assessment and plan (1) TIA (transient ischemic attack): Start date: 06/17/25 Start time: 17:50 Status: Acute Assessment and plan: Presneted with risk factors for stroke having episodes of intermittent and less than 1 minute dizzy spells w/o syncope Now resolved PT/OT consultation Telemetry Critical left internal carotid stenosis which is stable per vascular surgery.- follow-up with at [facility] in the near future is planed Esophageal mass with dysphagia which will be evaluated as well and there may be some concern for metastatic disease though CTA of the head and neck are negative. -Seen by [facility] outpatient and as per notes from 06/01/2025: Per review of [facility] records he is scheduled to see a thoracic surgeon at [facility] on 06/13/25 for dx esophageal mass. He is scheduled to see ENT on 06/28/25 as initially set up by PCP with dysphagia complaints, as well as for concern of melanotic lesion on L posterior neck. He is seeing [facility] oncology later this afternoon for monoclonal gammopathy. The patient will continue outpatient management Ongoing atorvastatin high-dose now at 80 mg from 40 mg. Metoprolol held for with permissive hypertension to be resumed in AM . MRI completed: -There is abundant bilateral jaylyn and supra ventricular white matter signal abnormality consistent with chronic small vessel disease and similar findings are also seen in the central karissa. None of these areas are associated with hemorrhage and there is no evidence of restricted diffusion to suggest recent ischemic event. -Recent CTA study performed yesterday reveals high-grade stenosis in the proximal left ICA in the neck and approximately 50 percent stenosis in the proximal right ICA in the neck. Vertebral arteries were demonstrated to be patent, with the right vertebral artery being dominant. EChocardiogram report pending (2) Left carotid stenosis: Status: Chronic Assessment and plan: Up to 90% stenosis of internal left carotid which appears stable per vascular surgery. This will be addressed in the near future when patient has diagnosis and treatment of his esophageal mass. [facility] is aware of this problem. No immediate intervention was recommended. (3) Esophageal mass: Status: Chronic Assessment and plan: Patient has had weight loss of the 25 pounds and feels better with weight loss but cannot eat solid food. This is being worked up at [facility] with definitive treatment in near future. There is no tissue diagnosis. (4) CKD (chronic kidney disease) stage 3, GFR 30-59 ml/min: Status: Acute Assessment and plan: This appears stable and will be monitored while hospitalized. (5) Alcohol dependence: Status: Acute Assessment and plan: Reported daily drinking, denies withdrawal episodes or seizures in the past Ethyl level this PM CIWA assessment ordered Discussed with Dr. Dupont Subjective Subjective Patient reports: no new complaints, feels better, tolerating liquids well, voiding w/o difficulty, bowel movement and afebrile; denies tolerating a regular diet, diarrhea, blood in stool, nausea, vomiting or shortness of breath Exam Narrative Exam Narrative: Aleret and oriented X 4 , no neurological deficit, clear lungs, S1, S2 regular , no murmur, abdomen is non-distended, soft , non-tenderness, no CVA tenderness Objective Last Vital Signs Temp 36.3 C L 06/17/25 16:21 Pulse 64 06/17/25 16:21 Resp 16 06/17/25 16:21 BP 148/84 H 06/17/25 16:21 Pulse Ox 93 06/17/25 16:21 Laboratory Results - last 24 hr 06/16/25 06/17/25 06/17/25 21:35 02:30 06:36 WBC 4.86 RBC 3.35 L Hgb 10.6 L Hct 32.1 L MCV 96 H MCH 31.6 MCHC 33.0 RDW 14.0 Plt Count 212 MPV 9.5 Sodium 137 Potassium 4.1 Chloride 101 Carbon Dioxide 26.6 Anion Gap 9.4 BUN 20 H Creatinine 1.4 H Est GFR (CKD-EPI 2020) 53.40 Glucose 91 Calcium 8.8 Magnesium 1.9 Total Bilirubin 0.4 AST 16 ALT 15 L Alkaline Phosphatase 84 Total Protein 7.4 Albumin 3.1 L Urine Color Yellow Urine Clarity Clear Urine pH 6.0 Ur Specific Mathews 1.020 Urine Protein Negative Urine Ketones Negative Urine Blood Trace-intact H Urine Nitrite Negative Urine Bilirubin Negative Urine Urobilinogen 0.2 Ur Leukocyte Esterase Negative Urine RBC 3-5 H Urine WBC Negative Ur Epithelial Cells Negative Urine Crystals Negative Urine Bacteria Rare Urine Casts Negative Urine Mucus Negative Ur Culture Indicated? No Urine Glucose Negative COVID-19 Source Nasopharynx SARS-CoV-2 (PCR) Negative Influenza Type A (PCR) Negative Influenza Type B (PCR) Negative RSV (PCR) Negative PAWSS Have you Been Recently Intoxicated or Drunk Within the Last 30 days?: No Have you Ever Experienced Previous Episodes of Alcohol Withdrawal?: No Have you ever Experienced Withdrawal Seizures?: No Have you ever Experienced Delirium Tremens(DT)s?: No Have you ever undergone Alcohol Rehabilitation Treatment (i.e, inpt ot outpatient treatment programs)?: No Have you ever Experienced Blackouts?: No Have you ever Combined Alcohol with other Downers within the last 90 days?: No Have you ever Combined Alcohol with any other Substance of Abuse during the last 90 days?: No Positive Blood Alcohol level on Presentation? [PCS.BAL]: No Evidence of Increased Autonomic Activity (i.e. HR>120, tremor, sweating, agitation, nausea)?: No Result: 0 Time Spent with Patient Time Spent with Patient: >50 minutes Time was spent: preparing to see the patient(eg.review tests), obtaining and/or reviewing separately otained hiistory, ordering medications,tests, procedures, referring, communicating with other health elderly caregiver, indepentently interpreting results, counseling the patient and care coordination
[2025-06-17 22:52] VITALS: BP 145/88; PULSE 60; RESP 16; TEMP 36.4; O2SAT 97
[2025-06-18 02:42] VITALS: BP 120/72; PULSE 57; RESP 14; TEMP 36.6; O2SAT 96
[2025-06-18 07:33] VITALS: BP 139/98; PULSE 57; RESP 18; TEMP 36.3; O2SAT 98
[2025-06-18] MEDS: Enoxaparin 40 MG/0.4 ML SYR SC (09:05)
[2025-06-18] MEDS: Normal Saline Flush 10 ML SYR IVP (09:14)
[2025-06-18] MEDS: Clopidogrel 75 MG TAB PO (09:17)
[2025-06-18] MEDS: Aspirin E.C. 81 MG TABEC PO (09:17)
[2025-06-18] MEDS: Magnesium Oxide 400 MG TAB PO (09:18)
[2025-06-18] MEDS: buPROPion-XL 150 MG TABCR PO (09:18)
[2025-06-18] MEDS: Folic Acid 1 MG TAB PO (09:18)
[2025-06-18] MEDS: Atorvastatin 40 MG TAB 80 MG PO (09:18)
--- NOTE | 2025-06-18 10:14 | CMDISCH_ITS ---
Date of service: 06/18/25 Time of Service: 10:14 LACE Index Scoring Tool Questions: Length of Stay (in days): 2 Was the patient admitted via the E.D.?: Yes Comorbidities: Liver or Renal Disease E.D. Visits: 1 Answers: Total Score: 11 Risk of Readmission: High Risk Care Management Discharge Plan Reason for Hospitalization: TIA, Esophageal mass, CKD Discharge Plan: Lewis will be discharged home today. HH PT was recommended, Veto ata declined the need for this service. He will follow up with his community providers and discharge plan of care. Lewis will transport via private vehicle by one of his friends. Patient/Family Education Needs: Review of discharge instructions, activity, limitations, and discharge plan of care. Discuss Ask Me Three. SDOH Health Related Social Needs: Health related social needs education Health related social needs details living in an apart ment and become a caregiver. Health related social needs details: living in an apartment and become a caregiver.
--- NOTE | 2025-06-18 10:59 | PTTR_ITS ---
PT Notes Visit Reasons: TIA, Esophageal mass, CKD Inpatient Physical Therapy Treatment Note [facility] Date: June 18, 2025 PRECAUTIONS: Fall. Standard. Activity as tolerated. SUBJECTIVE: Patient states he is ready for a walk and exercise. Has been looking forward to this. Had a good session yesterday. Has his handouts for his HEP. Thinks he is being discharged today. OBJECTIVE: ? PAIN: non reported VITALS: Monitored by nursing Therapeutic Activities 40974: Direct one-on-one instruction in dynamic activities to improve functional performance. ?? BED MOBILITY/TRANSFERS? Rolling L/R: independent Supine-sit: ?independent ? Sit-supine: ?independent? Sit-stand: ? independent? Stand-sit: ?independent? Bed-Chair:? independent? Chair-bed: independent Provided skilled cues and instruction on performance and technique throughout. Gait Training 78360: Direct one-on-one instruction and skilled instruction in: Movement sequencing Provided instruction in gait pattern Patient education regarding pacing and breathing techniques to maximize activity tolerance? GAIT? Assistive Device: ?no AD ? Weight bearing: FWB Assist: Supervision? Distance:?500 feet independent ? Deviation: ?Slow gait speed, low step height, short step length. ? Therapeutic Exercises 23432: Direct one-on-one instruction in therapeutic exercises to develop strength, endurance, range of motion and flexibility. Ran patient to his home exercise program including 10 bridges, 10 straight leg raise bilateral, seated long arc quad and seated march x 10 each, standing hip flexion, abduction and extension. Heel raise toe raise x 10. Patient offered verbal cues to avoid excessive sidebending during standing hip abduction. Home program below. Exercises Access Code: [email or web address] URL: [email or web address] Date: 06/17/2025 Prepared by: Demarcus Frye Exercises - Supine Bridge - 1 x daily - 7 x weekly - 1 sets - 10 reps - Supine Straight Leg Raise - 1 x daily - 7 x weekly - 1 sets - 10 reps - Beginner Side Leg Lift - 1 x daily - 7 x weekly - 1 sets - 10 reps - Supine Lower Trunk Rotation - 1 x daily - 7 x weekly - 1 sets - 10 reps - Seated Long Arc Quad - 1 x daily - 7 x weekly - 1 sets - 10 reps - Seated March - 1 x daily - 7 x weekly - 1 sets - 10 reps - Seated March With Hip External Rotation - 1 x daily - 7 x weekly - 1 sets - 10 reps - Seated Hip Internal Rotation AROM - 1 x daily - 7 x weekly - 1 sets - 10 reps - Sit to Stand - 1 x daily - 7 x weekly - 1 sets - 10 reps - Standing Hip Abduction with Counter Support - 1 x daily - 7 x weekly - 1 sets - 10 reps - Standing Hip Extension with Counter Support - 1 x daily - 7 x weekly - 1 sets - 10 reps - Standing March with Counter Support - 1 x daily - 7 x weekly - 1 sets - 10 reps - Mini Squat with Counter Support - 1 x daily - 7 x weekly - 1 sets - 10 reps - Standing Heel Raise with Support - 1 x daily - 7 x weekly - 1 sets - 10 reps - Standing Toe raise with support - 1 x daily - 7 x weekly - 1 sets - 10 reps Provided skilled instruction in proper exercise performance Provided skilled manual cues to facilitate proper muscle recruitment and/or form: ASSESSMENT:?Patient holding up very well. Patient set for discharge today. Has met all inpatient physical therapy goals. He was encouraged to continue w ith his HEP. PLAN: Until discharge patient can continue with HEP performance BID may walk in the hallway as tolerated without AD. TREATMENT CODE/TIME: [id number] 30mins (10:35-11:00) DISCHARGE RECOMMENDATION: Discharge home with no services. Disclaimer: This note was created using [employer] voice recognition software. It was reviewed for major content. However, there may be multiple small discre pancies and errors due to the voice recognition aspects of the software.
[2025-06-18 11:06] VITALS: BP 154/88; PULSE 79; RESP 18; TEMP 36.6; O2SAT 99
--- NOTE | 2025-06-18 12:30 | W.PM.DS.N ---
Date of service: 06/18/25 Time of Service: 12:30 DS: Diagnosis Discharge Diagnosis (1) TIA (transient ischemic attack): Status: Acute (2) Left carotid stenosis: Status: Chronic (3) Esophageal mass: Status: Chronic (4) CKD (chronic kidney disease) stage 3, GFR 30-59 ml/min: Status: Acute (5) Alcohol dependence: Status: Acute Discharge Plan Disposition Patient Disposition: Home Condition: Improving Discharge Details Reason For Visit: TIA, Esophageal mass, CKD Admit Date/Time: 06/16/25 20:57 Admit Provider: Karl Zeng Attending Provider: Karl Zeng Primary Care Provider: Lewis Kelley [facility] Course Hospital Course: This 74-year-old male patient with a past medical history significant for extensive tobacco use (reduced to 1ppd, previously 3ppd), ongoing ETOH use, NSTEMI, CKD, carotid stenosis (right 50% and left ICA 70-99%) with ongoing plan for with vascular surgery at [facility] , oesophageal mass followed by thoracic surgery at [facility] presented on 06/16/25 to the ED with dizziness and difficulty swallowing. Work-up in the ED was negative for acute findings on head CT. [facility] vascular consulted with recommendation for tele-neurology consultation which resulted in recommendation for stroke work-up and brain mets evaluation. The patient was admitted to the medical surgical service with telemetry by the hospitalist. Plavix load given in the ED, ongoing ASA 81 mg , high-dose satin increased from 80mg of atorvastatin. The patient remained symptom free and hemodynamically stable and refused home health PT. ABCD2 score at 4. Will continue plavix for 21 days total and complete a neurology referral at [facility]. Follow up with your providers at [facility] as previously scheduled and see your PCP within 7 days of discharge MRI of the brain completed with the following impression: Abundant bilateral jaylyn and supra ventricular white matter signal abnormality consistent with chronic small vessel disease and similar findings are also seen in the central karissa. None of these areas are associated with hemorrhage and there is no evidence of restricted diffusion to suggest recent ischemic event. Recent CTA study performed yesterday reveals high-grade stenosis in the proximal left ICA in the neck and approximately 50 percent stenosis in the proximal right ICA in the neck. Vertebral arteries were demonstrated to be patent, with the right vertebral artery being dominant. Echocardiogram showed an LVEF of 65% without changes from prior study completed on 02/02/2024 Recommendation for PCP follow-up Follow-up on MRI of the brain with contrast [facility] vascular/ thoracic surgery and oncology follow-up EGD recommended by HEADING AND PRIMING OPERATOR on 06/01/25 as well as diet modification recommendations Discussed with Dr. Dupont Home Meds and New Rx's Prescriptions: New clopidogrel 75 mg Tablet 75 mg PO DAILY Qty: 17 0RF Continued aspirin [Adult Aspirin Regimen] 81 mg tablet,delayed release (DR/EC) 81 mg PO DAILY metoprolol succinate 25 mg tablet extended release 24 hr 25 mg PO DAILY folic acid 1 mg tablet 1 mg PO DAILY bupropion HCl [Wellbutrin XL] 150 mg tablet extended release 24 hr 150 mg PO DAILY magnesium oxide 400 mg magnesium tablet 400 mg PO DAILY Changed atorvastatin 40 mg tablet 80 mg PO DAILY Qty: 0 0RF Discharge Instructions Referrals: Lewis Kelley [Primary Care Provider, Medicine] Referral Note: Follow-up within 7 days of discharge Gayla Abdi MD [ [facility] STAFF PHYSICIAN, Neurology] Referral Note: Neurology referral s/p TIA Activity:: Activity as Tolerated Equipment/Supplies:: No Equipment Needed Diet:: As per HEADING AND PRIMING OPERATOR on 06/01/25 Discharge Orders Discharge Orders: Discharge Order (Routine); Ordered 06/18/25 Ordered By: Luz Elena Gottlieb Other Ambulatory Orders: MR angio brain w (Routine) Timeframe: 10 Day Facility: [facility] - Location: DIAGNOSTIC IMAGING Ordered By: Luz Elena Gottlieb DS: Summary Time Spent with Patient providing and/or coordinating discharge services: Greater than 30 minutes Status at Discharge Functional status at discharge: independent ambulation Overall status at discharge: patient is progressing back to baseline Mental Status: mental status grossly normal Speech and Movement: speech and movement normal Mood: congruent mood Affect: normal affect Quality:SDOH Health Related Social Needs: Health related social needs education Health related social needs details living in an apartment and become a caregiver. Health related social needs details: living in an apartment and become a caregiver. Exam Narrative Exam Narrative: Aleret and oriented X 4 , no neurological deficit, clear lungs, S1, S2 regular , no murmur, abdomen is non-distended, soft , non-tenderness, no CVA tenderness Psych Mental Status: mental status grossly normal Speech and Movement: speech and movement normal Mood: congruent mood Affect: normal affect DS: Data Vitals/I&O Vitals and I&O: Vital Signs Temperature 36.6 C 06/18/25 11:06 Temperature Source Temporal Artery Scan 06/18/25 11:06 Pulse 79 06/18/25 11:06 Pulse Rhythm Regular 06/16/25 22:53 Pulse 62 06/16/25 21:01 Respiratory Rate 18 06/18/25 11:06 Respiratory Effort Normal, Non-Labored 06/16/25 22:53 Respiratory Depth Normal 06/16/25 22:53 Respiratory Pattern Normal 06/16/25 22:53 Blood Pressure 154/88 H 06/18/25 11:06 Blood Pressure Mean 110 06/18/25 11:06 Pulse Oximetry 99 06/18/25 11:06 Oxygen Delivery Method Room Air 06/18/25 11:06 Oxygen Flow Rate 0 06/18/25 11:06 Pain Level 0 06/18/25 02:42 Comment Pt refused vitals att. Stated Let me sleep. 06/17/25 20:48 Intake & Output 06/17/25 06/18/25 06/18/25 23:59 11:59 23:59 Intake Total 250 / 250 Balance 250 / 250 Weight 77.2 kg Intake: IV Oral 240 / 240 Other: Urine Color Yellow Urine Appearance Clear Urine Odor Normal Comment pt reports he has voided independently today per pt, reports he voided at 0600 Data Completed and Pending Labs on day of discharge: Labs from last 24 hours 06/17/25 18:02 Ethyl Alcohol 3.4 PFSH All Active Problems (Updated 06/17/25 @ 15:00 by MICHAEL Schneider) Dizziness of unknown cause (Acute) Left carotid stenosis (Acute) Left carotid stenosis (Chronic) CKD (chronic kidney disease) stage 3, GFR 30-59 ml/min (Acute) Esophageal mass (Chronic) TIA (transient ischemic attack) (Acute) Oropharyngeal dysphagia (Acute) Serum creatinine raised (Acute) Atrial tachycardia (Acute) History of hypotension (Acute) Dysphagia (Acute) Pruritic rash (Acute) Acute kidney injury (Acute) Heart failure (Acute) Nicotine dependence (Acute) Tobacco dependence (Acute) Heavy drinker (Acute) Alcohol abuse (Chronic) Alcohol dependence (Acute) Macrocytic anemia (Acute) Metabolic acidosis (Acute) Hyponatremia (Acute) Medical History Carotid stenosis, bilateral Chronic kidney disease, stage 3b Microscopic hematuria Myocardial infarction Overweight Monoclonal gammopathy Malignant melanoma Pneumonia Social History Smoking/Tobacco Use Status: Current every day Smoking risk assessment performed?: Yes Alcohol Intake: former Drug use: Never Housing: apartment Time Spent with Patient Time Spent with Patient: >85 minutes Time was spent: preparing to see the patient(eg.review tests), obtaining and/or reviewing separately otained hiistory, ordering medications,tests, procedures, referring, communicating with other health care specialist, indepentently interpreting results, counseling the patient and care coordination
[2025-06-18 14:44] VITALS: BP 137/90; PULSE 60; RESP 16; TEMP 36.4; O2SAT 94
== END 2025-06-18 14:49 | disposition home or self-care (01) ==
LOC: ER 16:05 → MS 22:47
PROVIDERS: Student in an Organized Health Care Education/Training Program; Admitting Provider Family Medicine; Emergency Provider Physician Assistant; PCP Internal Medicine; Responsible Provider Nurse Practitioner Acute Care; Visit Provider Family Medicine
DX: I65.23 Occlusion and stenosis of bilateral carotid arteries (principal); K22.89 Other specified disease of esophagus; N18.32 Chronic kidney disease, stage 3b; F17.210 Nicotine dependence, cigarettes, uncomplicated; I25.10 Atherosclerotic heart disease of native coronary artery without angina pectoris; R63.4 Abnormal weight loss; F10.20 Alcohol dependence, uncomplicated; R13.12 Dysphagia, oropharyngeal phase; I13.0 Hypertensive heart and chronic kidney disease with heart failure and stage 1 through stage 4 chronic kidney disease, or unspecified chronic kidney disease; D47.2 Monoclonal gammopathy; I50.9 Heart failure, unspecified; E87.1 Hypo-osmolality and hyponatremia; D53.9 Nutritional anemia, unspecified; R31.29 Other microscopic hematuria; I25.2 Old myocardial infarction
CPT/HCPCS: 00123; 36415; 70496; 70498; 80053; 85027; 87637; 93005; 96372; 97110; 97162; 99285; J1650; 70551; 80320; 81003; 81015; 83735; 84484; 85025; 93010; 93306; 99223; 99233; 99239; G0378; J3490

== ENCOUNTER 2025-08-10 04:27 | Outpatient (CLI) | payer MEDICARE, MEDICAID, SELFPAY ==
[2025-08-10 13:07] LABS: Abs Immature Grans 0.02 10^3/uL (0.0-0.06); HCT 35.5 % (40.0-50.0); HGB 11.9 g/dL (13.5-17.5); Immature Grans % 0.3 %; MCH 32.6 pg (27.0-33.0); MCHC 33.5 % (32.0-36.0); MCV 97 fL (80-95); MPV 9.1 fL (8.0-11.0); Platelet Count 275 10^3/uL (130-400); RBC 3.65 10^6/uL (4.36-5.78); RDW 13.1 % (11.8-14.1); RDW-SD 47.1 fL; WBC 7.43 10^3/uL (4.4-10.8)
[2025-08-10 13:25] LABS: ALT 13 U/L (16-63); AST 18 U/L (15-37); Albumin 3.5 g/dL (3.4-5.0); Alkaline Phosphatase 93 U/L (46-116); Anion Gap 6.4 mmol/L (3-11); BUN 16 mg/dL (7-18); Bilirubin, Total 0.5 mg/dL (0.2-1.0); CO2 30.6 mmol/L (21.0-32.0); Calcium 9.1 mg/dL (8.5-10.1); Chloride 97 mmol/L (98-107); Estimated GFR 53.40 (mL/min/1.73m2); Glucose 106 mg/dL (74-106); Potassium 4.1 mmol/L (3.5-5.1); Sodium 134 mmol/L (136-145); Total Protein 8.2 g/dL (6.4-8.2)
[2025-08-10 22:18] LABS: Total Protein 8.1 g/dL (6.3-8.2)
[2025-08-11 10:52] LABS: Kappa Free Light Chain 2.68 mg/dL (0.33-1.94); Lambda Free Light Chain 58.05 mg/dL (0.57-2.63)
[2025-08-11 11:43] LABS: Albumin 53.0 % (55.8-66.1); Albumin g/dL 4.3 g/dL (3.6-5.2); Alpha 1 g/dL 0.40 g/dL (0.15-0.40); Alpha 2 g/dL 0.90 g/dL (0.50-1.00); Beta g/dL 0.70 g/dL (0.60-1.20); Gamma g/dL 1.90 g/dL (0.60-1.60); Monoclonal Spike g/dL 1.4 g/dL (None Seen)
== END 2025-08-10 04:28 | disposition home or self-care (01) ==
LOC: LBO 04:27
PROVIDERS: PCP Internal Medicine; Visit Provider Internal Medicine Hematology & Oncology
DX: C15.9 Malignant neoplasm of esophagus, unspecified (principal)
CPT/HCPCS: 36415; 80053; 82784; 83883; 84165; 85025

== ENCOUNTER 2025-09-06 01:36 | Outpatient (CLI) | payer MEDICARE, MEDICAID, SELFPAY ==
[2025-09-06 08:11] LABS: Abs Immature Grans 0.02 10^3/uL (0.0-0.06); HCT 35.0 % (40.0-50.0); HGB 11.6 g/dL (13.5-17.5); Immature Grans % 0.3 %; MCH 32.0 pg (27.0-33.0); MCHC 33.1 % (32.0-36.0); MCV 96 fL (80-95); MPV 9.0 fL (8.0-11.0); Platelet Count 379 10^3/uL (130-400); RBC 3.63 10^6/uL (4.36-5.78); RDW 12.2 % (11.8-14.1); RDW-SD 43.4 fL; WBC 7.02 10^3/uL (4.4-10.8)
[2025-09-06 08:34] LABS: ALT 20 U/L (16-63); AST 15 U/L (15-37); Albumin 3.3 g/dL (3.4-5.0); Alkaline Phosphatase 94 U/L (46-116); Anion Gap 6.4 mmol/L (3-11); BUN 28 mg/dL (7-18); Bilirubin, Total 0.4 mg/dL (0.2-1.0); CO2 30.6 mmol/L (21.0-32.0); Calcium 9.2 mg/dL (8.5-10.1); Chloride 96 mmol/L (98-107); Estimated GFR 37.02 (mL/min/1.73m2); Glucose 96 mg/dL (74-106); Magnesium 2.2 mg/dL (1.8-2.4); Potassium 4.4 mmol/L (3.5-5.1); Sodium 133 mmol/L (136-145); Total Protein 8.4 g/dL (6.4-8.2)
== END 2025-09-06 01:37 | disposition home or self-care (01) ==
LOC: LBO 01:37
PROVIDERS: PCP Internal Medicine; Visit Provider Internal Medicine Medical Oncology
DX: C15.9 Malignant neoplasm of esophagus, unspecified (principal)
CPT/HCPCS: 36415; 80053; 83735; 85025

== ENCOUNTER 2025-09-13 03:17 | Outpatient (CLI) | payer MEDICARE, MEDICAID, SELFPAY ==
[2025-09-13 08:27] LABS: Abs Immature Grans 0.02 10^3/uL (0.0-0.06); HCT 36.0 % (40.0-50.0); HGB 11.8 g/dL (13.5-17.5); Immature Grans % 0.2 %; MCH 31.8 pg (27.0-33.0); MCHC 32.8 % (32.0-36.0); MCV 97 fL (80-95); MPV 9.1 fL (8.0-11.0); Platelet Count 327 10^3/uL (130-400); RBC 3.71 10^6/uL (4.36-5.78); RDW 12.3 % (11.8-14.1); RDW-SD 43.8 fL; WBC 8.33 10^3/uL (4.4-10.8)
[2025-09-13 08:56] LABS: ALT 20 U/L (16-63); AST 17 U/L (15-37); Albumin 3.3 g/dL (3.4-5.0); Alkaline Phosphatase 97 U/L (46-116); Anion Gap 8.5 mmol/L (3-11); BUN 33 mg/dL (7-18); Bilirubin, Total 0.5 mg/dL (0.2-1.0); CO2 31.5 mmol/L (21.0-32.0); Calcium 9.6 mg/dL (8.5-10.1); Chloride 97 mmol/L (98-107); Estimated GFR 42.30 (mL/min/1.73m2); Glucose 97 mg/dL (74-106); Magnesium 2.3 mg/dL (1.8-2.4); Potassium 4.1 mmol/L (3.5-5.1); Sodium 137 mmol/L (136-145); Total Protein 8.6 g/dL (6.4-8.2)
== END 2025-09-13 03:18 | disposition home or self-care (01) ==
LOC: LBO 03:17
PROVIDERS: PCP Internal Medicine; Visit Provider Internal Medicine Medical Oncology
DX: C15.9 Malignant neoplasm of esophagus, unspecified (principal)
CPT/HCPCS: 36415; 80053; 83735; 85025

== ENCOUNTER 2025-09-19 09:34 | Emergency (ER) | payer MEDICARE, MEDICAID, SELFPAY ==
[2025-09-19] VITALS (32 sets, daily range): BP systolic 101–167; BP diastolic 69–98; PULSE 69–98; RESP 15–24; TEMP 36.1; O2SAT 95–100
--- NOTE | 2025-09-19 09:30 | RT.EKG_ITS ---
APPROVED REPORT Exam: Resting ECG Reason for Exam: sob Patient Location: E HR:94 bpm ECG Measurements Heart Rate 94 AXIS TX 157 P 83 QRSd 98 QRS 68 QT 356 T 49 QTc 445 Conclusion Sinus rhythm...normal P axis, V-rate 60- 99 Probable left atrial enlargement...P >50mS, <-0.10mV V1 No STEMI
--- NOTE | 2025-09-19 10:12 | ANES_ITS ---
Date of service: 09/19/25 Time of Service: 10:09 Anesthesia Note Report Anesthesia Note: Requested to evaluated Lewis from a difficult airway perspective. He presented today to the ED stridulous and hypoxic. With oxygen administration and position changes his hypoxia resolved, but remains with stridor intermittently. He has esophageal cancer for which he is receiving radiation and chemo. Other sig past medical history includes CHF, CAD, carotid stenosis, dysphagia, CKD. He is a current smoker and daily EtOH. Previous Anesthesia at [facility] (08/25) is documented as an easy mask ventilation and grade 1 view with a mac 4 blade. Discussed with Lewis about doing a brief nasal endoscopy to evaluate his airway, which he agreed to. 0.2 mL of 4% lidocaine was given to his right nare. A 2.8 glide bflex scope was gently advanced without difficulty to the level of the cords. Without full topicalization I didn't go through the cords. There were no identified supraglottic concerns noted on this limited nasal endoscopy.
--- NOTE | 2025-09-19 10:15 | RT.EKG_ITS ---
APPROVED REPORT Exam: Resting ECG Reason for Exam: dyspnea Patient Location: E HR:86 bpm ECG Measurements Heart Rate 86 AXIS MO 156 P 94 QRSd 94 QRS 70 QT 361 T 67 QTc 433 Conclusion Sinus rhythm...normal P axis, V-rate 60- 99 Probable left atrial enlargement...P >50mS, <-0.10mV V1 No STEMI
--- NOTE | 2025-09-19 10:15 | DI.CT_ITS ---
Exam(s) CT CHEST W EXAM: CT CHEST W CLINICAL HISTORY: esophageal mass TECHNIQUE: Imaging Protocol: Axial computed tomography images with coronal and sagittal reformatted images were created and reviewed. Computer aided detection (CAD) was utilized. CONTRAST MATERIAL: Intravenous: Omnipaque 350Contrast volume:70 mL. COMPARISON: CT CT SOFT TISSUE NECK W/CONTRAST from 05/03/[address] BRAIN NECK CTA from 06/16/2025 FINDINGS: Tracheobronchial tree: There is opacification of tracheobronchial tree in the right lower lobe. This may represent aspiration/mucous plugging. No evidence of bronchiectasis. Pulmonary parenchyma: Centrilobular emphysematous changes are present in the lungs. There are no pulmonary nodules present. There are no focal consolidating infiltrates present. Mediastinum and Martha: There is a 3.0 x 2.7 cm right supraclavicular enlarged lymph node (series 8, image 28). This has increased in size compared to the prior examination. There is again seen a circumferential proximal esophageal mass which appears to have increased in size. It measures 4.5 transverse by 4.3 AP by 6.1 craniocaudad cm. It compresses the trachea. There do appear to be destructive changes of the cricoid cartilage. Thyroid gland: Unremarkable. Pleura: No effusion or pneumothorax. Heart: The heart is not dilated. No coronary artery calcifications are seen. No pericardial effusion. Aorta: Thoracic aorta non-dilated. Atherosclerotic calcification is present. Pulmonary arteries: No pulmonary emboli are identified. Upper abdomen: There is a percutaneous gastrostomy tube in good position. Lymph nodes: There is no significant axillary adenopathy. Bones: Within normal limits for the patient's age. There are old right rib fracture deformities. Soft tissues: Unremarkable. IMPRESSION: 1. Interval increase in size of the proximal esophageal mass which now measures 4.5 x 4.3 x 6.1 cm. There are destructive changes of the cricoid cartilage and likely involvement of the adjacent trachea. 2. Interval increase of the right supraclavicular lymph node loop which is likely metastatic. 3. Centrilobular emphysematous changes in the lungs. 4. Secretions in airway branches in the right lower lobe likely reflecting aspiration. RADIATION DOSE DELIVERED: 220.38mGy.cm Total DLP DATA REPOSITORY: All CT scans at this facility are submitted to the National Radiology Data Registry (NRDR) Dose Index Registry (DIR) with the [employer] (ACR). RADIATION OPTIMIZATION: All CT scans at this facility use at least one of these dose optimization techniques: automated exposure control; mA and/or kV adjustment per patient size (includes targeted exams where dose is matched to clinical indication); or iterative reconstruction.
[2025-09-19 10:22] LABS: Abs Immature Grans 0.12 10^3/uL (0.0-0.06); HCT 35.3 % (40.0-50.0); HGB 11.4 g/dL (13.5-17.5); Immature Grans % 2.5 %; MCH 31.8 pg (27.0-33.0); MCHC 32.3 % (32.0-36.0); MCV 99 fL (80-95); MPV 10.6 fL (8.0-11.0); Platelet Count 246 10^3/uL (130-400); RBC 3.58 10^6/uL (4.36-5.78); RDW 11.9 % (11.8-14.1); RDW-SD 43.9 fL; WBC 4.84 10^3/uL (4.4-10.8)
[2025-09-19 10:35] LABS: INR 1.1 (0.9-1.1); PTT Activated 25.4 sec (20.6-30.2); Prothrombin Time 10.8 sec (9.1-11.1)
[2025-09-19] MEDS: Normal Saline - Diluent 50 ML VIAL IJ (10:40)
[2025-09-19] MEDS: Normal Saline Flush 10 ML SYR IVP (10:41)
[2025-09-19] MEDS: Omnipaque 350 MG/ML 500 ML BTL-Imaging package IJ (10:41)
[2025-09-19 10:43] LABS: Troponin I 11 ng/L (<or=76)
--- NOTE | 2025-09-19 11:37 | ED.GENADUL_ITS ---
Discharge Plan Disposition Patient Disposition: Transfer-Acute Inpatient Care Specific Acute Inpt Facility: [facility] Condition: Serious Discharge Details Clinical Impression: Airway compromise, Esophageal mass Primary Care Provider: Lewis Kelley ED Provider: Alfonzo Singleton Home Meds and New Rx's Prescriptions: No Action aspirin [Adult Aspirin Regimen] 81 mg tablet,delayed release (DR/EC) 81 mg PO DAILY metoprolol succinate 25 mg tablet extended release 24 hr 25 mg PO DAILY folic acid 1 mg tablet 1 mg PO DAILY bupropion HCl [Wellbutrin XL] 150 mg tablet extended release 24 hr 150 mg PO DAILY magnesium oxide 400 mg magnesium tablet 400 mg PO DAILY atorvastatin 40 mg tablet 80 mg PO DAILY Qty: 0 0RF clopidogrel 75 mg Tablet 75 mg PO DAILY Qty: 17 0RF docusate sodium 50 mg/5 mL liquid Patient Comments: TAKE 5 ML BY MOUTH EVERY DAY FOR CONSTIPATION, MAY INCREASE TO 10ML DAILY NEEDED prochlorperazine maleate 10 mg tablet Patient Comments: TAKE ONE TABLET BY MOUTH EVERY 6 HOURS NEEDED FOR NAUSEA prochlorperazine 25 mg suppository [place] Patient Comments: INSERT ONE SUPPOSITORY RECTALLY EVERY 12 HOURS NEEDED FOR NAUSEA HPI General Date/Time Provider Initiated Documentation: 09/19/25 09:48 . 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 Exam notable for hypoxia, improved with pain patient positioning as well as stridor like breath sounds. Given known malignancy high concern for airway compromise. Upon initial evaluation emergent call was placed to anesthesia who is come bedside and performed a nasopharyngeal scope who has assessed the upper airway and shows that is still patent. However given the known lower airway abusing mass, have high concern for patency of the lower airway. As such case was discussed with of pulmonology who is in agreement with plan for obtaining CT chest to further evaluate patient's airway and determine if there is other possible causes of his hypoxia such as atelectasis, etc. ED course: 11:51 AM Case discussed with Dr. Lei of pulmonology with [facility] who will discuss with her team to determine if patient needs any emergent intervention from their facility. At this time patient remains stable on 5 L of supplemental O2. Labs are without any significant acute findings at this time. 12:[address] Lei who recommends transfer to their facility. Given bed availability it will be a ER to ER transfer under the accepting physician of Dr. Kimball. 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 EMS upon arrival found the patient to have stridorous breath sounds satting at 70% on room air. Patient denies any acute chest pain, nausea, vomiting but notes he has been coughing up some brown material. Denies any associated fevers or chills. ROS: Negative besides as mentioned above Exam: Gen: A&O in acute respiratory distress HEENT: NCAT, EOMI, not icteric. External ears normal. No rhinorrhea. Moist mucous membranes. Neck: Supple, full range of motion, no observable masses, No meningeal sign. Lungs: Stridorou- like breath sounds, breath sounds present bilaterally no appreciable wheezing, rhonchi or rails CV: RRR, no edema. Abdomen: Soft, nondistended, No rebound tenderness. MSK: No joint swelling, no redness. Skin: No rashes, petechiae, lesions. Normal color per patient. Neuro: Normal Gait, Grossly intact. Psych: Appropriate for situation. Rhythm: NSR Rate: 86 [place]: Normal axis Intervals: Normal intervals Other findings: No acute ST segment or T wave changes to suggest acute ischemia. Labs: Laboratory Tests Range/Units 09/19/25 09/19/25 09:50 10:21 WBC (4.4-10.8) 10^3/uL 4.84 RBC (4.36-5.78) 10^6/uL 3.58 L Hgb (13.5-17.5) g/dL 11.4 L Hct (40.0-50.0) % 35.3 L MCV (80-95) fL 99 H MCH (27.0-33.0) pg 31.8 MCHC (32.0-36.0) % 32.3 RDW (11.8-14.1) % 11.9 Plt Count (130-400) 10^3/uL 246 MPV (8.0-11.0) fL 10.6 Immature Gran % % 2.5 Neutrophils % % 79.7 Lymphocytes % % 11.8 Monocytes % % 3.5 Eosinophils % % 1.9 Basophils % % 0.6 Nucleated RBC % (0.0-0.3) % 0.0 Absolute Neutrophils (1.2-6.7) 10^3/uL 3.86 Absolute Lymphocytes (1.2-3.4) 10^3/uL 0.57 L Absolute Monocytes (0.1-0.8) 10^3/uL 0.17 Absolute Eosinophils (0.0-0.7) 10^3/uL 0.09 Absolute Basophils (0.0-0.2) 10^3/uL 0.03 PT (9.1-11.1) sec 10.8 INR (0.9-1.1) 1.1 APTT (20.6-30.2) sec 25.4 VBG Lactate (<or=2.0) mmol/L 0.9 Troponin I (<or=76) ng/L 11 ABO/Rh A Positive Antibody Screen NEGATIVE Radiology: Exam(s) CT CHEST W EXAM: CT CHEST W CLINICAL HISTORY: esophageal mass TECHNIQUE: Imaging Protocol: Axial computed tomography images with coronal and sagittal reformatted images were created and reviewed. Computer aided detection (CAD) was utilized. CONTRAST MATERIAL: Intravenous: Omnipaque 350Contrast volume:70 mL. COMPARISON: CT CT SOFT TISSUE NECK W/CONTRAST from 05/03/[address] BRAIN NECK CTA from 06/16/2025 FINDINGS: Tracheobronchial tree: There is opacification of tracheobronchial tree in the right lower lobe. This may represent aspiration/mucous plugging. No evidence of bronchiectasis. Pulmonary parenchyma: Centrilobular emphysematous changes are present in the lungs. There are no pulmonary nodules present. There are no focal consolidating infiltrates present. Mediastinum and Martha: There is a 3.0 x 2.7 cm right supraclavicular enlarged lymph node (series 8, image 28). This has increased in size compared to the prior examination. There is again seen a circumferential proximal esophageal mass which appears to have increased in size. It measures 4.5 transverse by 4.3 AP by 6.1 craniocaudad cm. It compresses the trachea. There do appear to be destructive changes of the cricoid cartilage. Thyroid gland: Unremarkable. Pleura: No effusion or pneumothorax. Heart: The heart is not dilated. No coronary artery calcifications are seen. No pericardial effusion. Aorta: Thoracic aorta non-dilated. Atherosclerotic calcification is present. Pulmonary arteries: No pulmonary emboli are identified. Upper abdomen: There is a percutaneous gastrostomy tube in good position. Lymph nodes: There is no significant axillary adenopathy. Bones: Within normal limits for the patient's age. There are old right rib fracture deformities. Soft tissues: Unremarkable. IMPRESSION: 1. Interval increase in size of the proximal esophageal mass which now measures 4.5 x 4.3 x 6.1 cm. There are destructive changes of the cricoid cartilage and likely involvement of the adjacent trachea. 2. Interval increase of the right supraclavicular lymph node loop which is likely metastatic. 3. Centrilobular emphysematous changes in the lungs. 4. Secretions in airway branches in the right lower lobe likely reflecting aspiration. RADIATION DOSE DELIVERED: 220.38mGy.cm Total DLP DATA REPOSITORY: All CT scans at this facility are submitted to the National Radiology Data Registry (NRDR) Dose Index Registry (DIR) with the [employer] ([employer]). RADIATION OPTIMIZATION: All CT scans at this facility use at least one of these dose optimization techniques: automated exposure control; mA and/or kV adjustment per patient size (includes targeted exams where dose is matched to clinical indication); or iterative reconstruction. Related Data Home Medications ?Medication ?Instructions ?Recorded ?Confirmed aspirin 81 mg tablet,delayed 81 mg PO DAILY 06/01/24 1 release (Adult Aspirin Regimen) metoprolol succinate 25 mg 25 mg PO DAILY 06/01/24 tablet,extended release 24 hr bupropion HCl 150 mg 24 hr tablet, 150 mg PO DAILY 09/19/25 extended release (Wellbutrin XL) folic acid 1 mg tablet 1 mg PO DAILY 05/20/2509/19 magnesium oxide 400 mg PO DAILY 05/20/25 atorvastatin 40 mg tablet 80 mg (2 x 40 mg) PO DAILY # 0 tabs 06/18/25 09/19/25 clopidogrel 75 mg tablet 75 mg PO DAILY #17 tabs 05/3109/19/25 docusate sodium 50 mg/5 mL oral 09/19/25 liquid prochlorperazine 25 mg rectal mg [place] 09/19/25 suppository prochlorperazine maleate 10 mg mg 09/19/25 tablet Previous Rx's ?Medication ?Instructions ?Recorded atorvastatin 40 mg tablet 80 mg (2 x 40 mg) PO DAILY # 0 tabs 06/18/25 clopidogrel 75 mg tablet 75 mg PO DAILY #17 tabs 05/31 08/25 Allergies Allergy/AdvReac Type Severity Reaction Status Date / Time cefdinir Allergy Skin Rash Verified 09/19/25 09:43 General Stated Complaint: SOB BIGG: 2 Course Vital Signs Vital signs: Vital Signs Temperature 36.1 C L 09/19/25 09:36 Pulse 94 H 09/19/25 09:36 Respiratory Rate 20 09/19/25 09:36 Blood Pressure 167/78 H 09/19/25 09:36 Pulse Oximetry 100 09/19/25 09:36 Temperature 36.1 C L 09/19/25 10:27 Pulse 86 09/19/25 10:31 Pulse 86 09/19/25 10:31 Respiratory Rate 16 09/19/25 10:31 Blood Pressure 119/83 09/19/25 10:30 Blood Pressure Mean 93 09/19/25 10:30 Pulse Oximetry 99 09/19/25 10:31 Oxygen Delivery Method Nasal Cannula 09/19/25 10:27 Oxygen Flow Rate 6 09/19/25 10:27 Pain Level 0 09/19/25 10:27 Lab/Test Results Lab/Test Results: Laboratory Tests Range/Units 09/19/25 09/19/25 09:50 10:21 WBC (4.4-10.8) 10^3/uL 4.84 RBC (4.36-5.78) 10^6/uL 3.58 L Hgb (13.5-17.5) g/dL 11.4 L Hct (40.0-50.0) % 35.3 L MCV (80-95) fL 99 H MCH (27.0-33.0) pg 31.8 MCHC (32.0-36.0) % 32.3 RDW (11.8-14.1) % 11.9 Plt Count (130-400) 10^3/uL 246 MPV (8.0-11.0) fL 10.6 Immature Gran % % 2.5 Neutrophils % % 79.7 Lymphocytes % % 11.8 Monocytes % % 3.5 Eosinophils % % 1.9 Basophils % % 0.6 Nucleated RBC % (0.0-0.3) % 0.0 Absolute Neutrophils (1.2-6.7) 10^3/uL 3.86 Absolute Lymphocytes (1.2-3.4) 10^3/uL 0.57 L Absolute Monocytes (0.1-0.8) 10^3/uL 0.17 Absolute Eosinophils (0.0-0.7) 10^3/uL 0.09 Absolute Basophils (0.0-0.2) 10^3/uL 0.03 PT (9.1-11.1) sec 10.8 INR (0.9-1.1) 1.1 APTT (20.6-30.2) sec 25.4 VBG Lactate (<or=2.0) mmol/L 0.9 Troponin I (<or=76) ng/L 11 ABO/Rh A Positive Antibody Screen NEGATIVE Medical Decision Making Quality:SDOH Health Related Social Needs: Health related social needs education Health related social needs details living in an apart ment and become a caregiver. PFSH All Active Problems (Updated 09/19/25 @ 12:10 by Alfonzo Singleton MD) Esophageal mass (Acute) Airway compromise (Acute) Dizziness of unknown cause (Acute) Left carotid stenosis (Acute) Left carotid stenosis (Chronic) CKD (chronic kidney disease) stage 3, GFR 30-59 ml/min (Acute) Esophageal mass (Chronic) Oropharyngeal dysphagia (Acute) Serum creatinine raised (Acute) Atrial tachycardia (Acute) History of hypotension (Acute) Dysphagia (Acute) Pruritic rash (Acute) Acute kidney injury (Acute) Heart failure (Acute) Nicotine dependence (Acute) Tobacco dependence (Acute) Heavy drinker (Acute) Alcohol abuse (Chronic) Alcohol dependence (Acute) Macrocytic anemia (Acute) Metabolic acidosis (Acute) Hyponatremia (Acute) Medical History Carotid stenosis, bilateral Chronic kidney disease, stage 3b Microscopic hematuria Myocardial infarction Overweight Monoclonal gammopathy Malignant melanoma Pneumonia Social History Smoking/Tobacco Use Status: Current every day Smoking risk assessment performed?: Yes Alcohol Intake: former Drug use: Never Substance use type: does not use Housing: apartment
[2025-09-19 12:21] LABS: Troponin I 20 ng/L (<or=76)
--- NOTE | 2025-09-19 12:22 | W.PULMCON ---
General Date Of Service Date of service: 09/19/25 Time of Service: 11:50 Requesting physician: Alfonzo Singleton Reason for Consult: Airway obstruction Recommendations: Assessment: 1. Respiratory failure - due to narrowing / compression on his proximal-mid trachea from esophageal cancer. Has some mucous plugging vs endobronchial disease in his right lung as well 2. Partial tracheal obstruction - likely due to progression of esophageal cancer. May have tumor invading his trachea or external compression 3. Esophageal cancer - stage IV disease 4. Tobacco abuse Recommendations: - at this time, his respiratory status is stable. Not using accessory muscles to breath. Not tachypneic. SPO2 in the upper 90's. Do not believe he requires intubation at this time - should his respiratory status decline and intubation is required, would need to do fiberoptically to better visualize the airway and help avoid any potential trauma to an obstructing airway mass (if present) - recommend dexamethasone to help reduced swelling / inflammation - given productive cough, starting azithromycin or levaquin would be reasonable to treat for bronchitis - patient is [place] [facility] / thoracic surgery evaluation. Discussed with Dr. Singleton History of Present Illness Narrative: Patient is a 74 yo with a history of stage IV esophageal cancer and tobacco abuse who presented to the ED for dyspnea. Developed dyspnea when laying supine overnight. Improved with sitting upright. Came to the ED for further evaluation. CT imaging showed narrowing of his proximal-mid trachea from underlying esophageal cancer. Last week received radiation therapy and chemotherapy for esophageal cancer. Denied recent fevers. No hemoptysis. Has had a cough with greenish sputum production. Currently on 6 L O2 via oxymask. ROS: 10 pt ROS negative except as above PFSH All Active Problems Esophageal mass (Acute) Airway compromise (Acute) Dizziness of unknown cause (Acute) Left carotid stenosis (Acute) Left carotid stenosis (Chronic) CKD (chronic kidney disease) stage 3, GFR 30-59 ml/min (Acute) Esophageal mass (Chronic) Oropharyngeal dysphagia (Acute) Serum creatinine raised (Acute) Atrial tachycardia (Acute) History of hypotension (Acute) Dysphagia (Acute) Pruritic rash (Acute) Acute kidney injury (Acute) Heart failure (Acute) Nicotine dependence (Acute) Tobacco dependence (Acute) Heavy drinker (Acute) Alcohol abuse (Chronic) Alcohol dependence (Acute) Macrocytic anemia (Acute) Metabolic acidosis (Acute) Hyponatremia (Acute) Medical History TIA (transient ischemic attack) Carotid stenosis, bilateral Chronic kidney disease, stage 3b Microscopic hematuria Myocardial infarction Overweight Monoclonal gammopathy Malignant melanoma Pneumonia Social History Smoking/Tobacco Use Status: Current every day Smoking risk assessment performed?: Yes Alcohol Intake: former Drug use: Never Substance use type: does not use Housing: apartment Visit Medication and Allergies Active Medications Generic Name Dose Route Start Last Admin Trade Name Freq PRN Reason Stop Dose Admin Iohexol 500 ml 09/19/25 10:30 09/19/25 10:41 Omnipaque 350 Mg/Ml 500 Ml Btl-Imaging Package IJ 10/19/25 23:59 70 ml DIRECTED CISCO Administration Sodium Chloride 0 ml 09/19/25 10:25 09/19/25 10:41 Normal Saline Flush 10 Ml Syr IVP 10 ml PRN PRN Administration Sodium Chloride 50 ml 09/19/25 10:30 09/19/25 10:40 Normal Saline - Diluent 50 Ml Vial IJ 50 ml DIRECTED CISCO Administration Allergies cefdinir Allergy (Verified 09/19/25 09:43) Skin Rash Results Last Vital Signs Temp 36.1 C L 09/19/25 10:27 Pulse 74 09/19/25 11:50 Resp 18 09/19/25 11:50 BP 123/86 09/19/25 11:45 Pulse Ox 99 09/19/25 11:50 Labs 09/19/25 09:50 Labs: Laboratory Results - last 24 hr 09/19/25 09/19/25 09/19/25 09:50 10:21 11:32 WBC 4.84 RBC 3.58 L Hgb 11.4 L Hct 35.3 L MCV 99 H MCH 31.8 MCHC 32.3 RDW 11.9 Plt Count 246 MPV 10.6 Immature Gran % 2.5 Neutrophils % 79.7 Lymphocytes % 11.8 Monocytes % 3.5 Eosinophils % 1.9 Basophils % 0.6 Nucleated RBC % 0.0 Absolute Neutrophils 3.86 Absolute Lymphocytes 0.57 L Absolute Monocytes 0.17 Absolute Eosinophils 0.09 Absolute Basophils 0.03 PT 10.8 INR 1.1 APTT 25.4 VBG Lactate 0.9 Troponin I 11 20 ABO/Rh A Positive Antibody Screen NEGATIVE Imaging CT scan - chest: report reviewed and image reviewed
[2025-09-19] MEDS: Dexamethasone 10 MG/ML VIAL IVP (12:33)
[2025-09-19 13:15] LABS: Troponin I 22 ng/L (<or=76)
== END 2025-09-19 13:05 | disposition short-term general hospital (02) ==
PROVIDERS: Emergency Provider General Practice; PCP Internal Medicine
DX: J98.8 Other specified respiratory disorders (principal); C78.00 Secondary malignant neoplasm of unspecified lung; Z85.01 Personal history of malignant neoplasm of esophagus
CPT/HCPCS: 36415; 86850; 86900; 86901; 93005; 96374; 99284; 99291; 71260; 83605; 84484; 85025; 85610; 85730; 93010; J1100

== ENCOUNTER 2025-09-26 03:10 | Outpatient (CLI) | payer MEDICARE, MEDICAID, SELFPAY ==
[2025-09-26 08:27] LABS: Abs Immature Grans 0.04 10^3/uL (0.0-0.06); HCT 33.5 % (40.0-50.0); HGB 10.6 g/dL (13.5-17.5); Immature Grans % 0.6 %; MCH 31.5 pg (27.0-33.0); MCHC 31.6 % (32.0-36.0); MCV 99 fL (80-95); MPV 9.2 fL (8.0-11.0); Platelet Count 289 10^3/uL (130-400); RBC 3.37 10^6/uL (4.36-5.78); RDW 12.1 % (11.8-14.1); RDW-SD 43.9 fL; WBC 6.20 10^3/uL (4.4-10.8)
[2025-09-26 08:43] LABS: ALT 75 U/L (16-63); AST 56 U/L (15-37); Albumin 2.6 g/dL (3.4-5.0); Alkaline Phosphatase 98 U/L (46-116); Anion Gap 8.3 mmol/L (3-11); BUN 51 mg/dL (7-18); Bilirubin, Total 0.3 mg/dL (0.2-1.0); CO2 32.7 mmol/L (21.0-32.0); Calcium 9.3 mg/dL (8.5-10.1); Chloride 100 mmol/L (98-107); Estimated GFR 58.01 (mL/min/1.73m2); Glucose 130 mg/dL (74-106); Magnesium 2.7 mg/dL (1.8-2.4); Potassium 4.1 mmol/L (3.5-5.1); Sodium 141 mmol/L (136-145); Total Protein 8.8 g/dL (6.4-8.2)
== END 2025-09-26 03:11 | disposition home or self-care (01) ==
LOC: LBO 03:10
PROVIDERS: PCP Internal Medicine; Visit Provider Internal Medicine Medical Oncology
DX: C15.9 Malignant neoplasm of esophagus, unspecified (principal)
CPT/HCPCS: 36415; 80053; 83735; 85025

== ENCOUNTER 2025-09-29 15:07 | Observation (INO) | payer MEDICARE, MEDICAID, SELFPAY ==
[2025-09-29] VITALS (42 sets, daily range): BP systolic 102–153; BP diastolic 57–99; PULSE 74–100; RESP 17–48; TEMP 36.2–36.7; O2SAT 91–100
--- NOTE | 2025-09-29 15:00 | RT.EKG_ITS ---
APPROVED REPORT Exam: Resting ECG Reason for Exam: dyspnea Patient Location: E HR:93 bpm ECG Measurements Heart Rate 93 AXIS DE 140 P 82 QRSd 86 QRS 77 QT 347 T 72 QTc 432 Conclusion Sinus rhythm...normal P axis, V-rate 60- 99
--- NOTE | 2025-09-29 15:21 | W.ED.GENAD ---
Discharge Plan Disposition Patient Disposition: Admit to [facility] Condition: Stable Discharge Details Clinical Impression: COPD exacerbation, Esophageal mass Primary Care Provider: Lewis Kelley ED Provider: Pacheco Watts Home Meds and New Rx's Prescriptions: No Action aspirin [Adult Aspirin Regimen] 81 mg tablet,delayed release (DR/EC) 81 mg PO DAILY metoprolol succinate 25 mg tablet extended release 24 hr 25 mg PO DAILY folic acid 1 mg tablet 1 mg PO DAILY bupropion HCl [Wellbutrin XL] 150 mg tablet extended release 24 hr 150 mg PO DAILY magnesium oxide 400 mg magnesium tablet 400 mg PO DAILY atorvastatin 40 mg tablet 80 mg PO DAILY Qty: 0 0RF clopidogrel 75 mg Tablet 75 mg PO DAILY Qty: 17 0RF docusate sodium 50 mg/5 mL liquid Patient Comments: TAKE 5 ML BY MOUTH EVERY DAY FOR CONSTIPATION, MAY INCREASE TO 10ML DAILY NEEDED prochlorperazine maleate 10 mg tablet Patient Comments: TAKE ONE TABLET BY MOUTH EVERY 6 HOURS NEEDED FOR NAUSEA prochlorperazine 25 mg suppository ND Patient Comments: INSERT ONE SUPPOSITORY RECTALLY EVERY 12 HOURS NEEDED FOR NAUSEA HPI General Mode of arrival: EMS. Date/Time Provider Initiated Documentation: 09/29/25 15:10. Limitations to Documentation: no limitations. Information obtained by: patient. History of Present Illness 75 year old M presents to the emergency department with the chief complaint of cough, dyspnea, described as moderate, Patient started experiencing this day(s) (3) and it has been constant. No relieving factors improve symptom(s), No exacerbating factors reported . Patient notes no other symptoms.. Patient did receive the following treatments prior to arrival, none Related Data Home Medications Medication Instructions Recorded Confirmed aspirin 81 mg tablet,delayed 81 mg PO DAILY 06/01/24 09/29/25 release (Adult Aspirin Regimen) metoprolol succinate 25 mg 25 mg PO DAILY 06/01/24 09/29/25 tablet,extended release 24 hr bupropion HCl 150 mg 24 hr tablet, 150 mg PO DAILY 05/20/25 09/29/25 extended release (Wellbutrin XL) folic acid 1 mg tablet 1 mg PO DAILY 05/20/25 09/29/25 magnesium oxide 400 mg PO DAILY 05/20/25 09/29/25 atorvastatin 40 mg tablet 80 mg (2 x 40 mg) PO DAILY #0 tabs 06/18/25 09/29/25 clopidogrel 75 mg tablet 75 mg PO DAILY #17 tabs 06/18/25 09/29/25 docusate sodium 50 mg/5 mL oral 09/19/25 liquid prochlorperazine 25 mg rectal mg ND 09/19/25 suppository prochlorperazine maleate 10 mg mg 09/19/25 tablet Previous Rx's Medication Instructions Recorded atorvastatin 40 mg tablet 80 mg (2 x 40 mg) PO DAILY #0 tabs 06/18/25 clopidogrel 75 mg tablet 75 mg PO DAILY #17 tabs 06/18/25 Allergies Allergy/AdvReac Type Severity Reaction Status Date / Time cefdinir Allergy Skin Rash Verified 09/29/25 15:14 General Stated Complaint: RespSymp BIGG: 3 Review of Systems All systems reviewed & are unremarkable except as noted in HPI and below Constitutional Constitutional: Denies chills, Denies fever(s) and Denies weakness Cardiovascular Cardiovascular: Denies chest pain and Reports dyspnea Respiratory Respiratory: Reports cough and Reports dyspnea Gastrointestinal Gastrointestinal: Denies abdominal pain, Denies nausea and Denies vomiting Neurologic Neurologic: Denies weakness Exam Const Orientation: alert [facility] Head: normal to inspection Ears: external ears normal General nose exam: external nose normal Mouth: moist mucous membranes Eyes General: appearance normal, both eyes and all related structures Neck Neck: normal visual inspection Resp Auscultation: rhonchi and wheezes Cardio Rate: regular rate Skin General skin exam: no rashes or lesions noted Neuro General: patient alert and patient oriented x3 Extrem General: normal to inspection Psych Mental Status: mental status grossly normal Course Vital Signs Vital signs: Vital Signs Temperature 36.7 C 09/29/25 15:08 Pulse 97 H 09/29/25 15:08 Respiratory Rate 09/29/25 15:08 Blood Pressure 142/85 H 09/29/25 15:08 Pulse Oximetry 95 09/29/25 15:08 Temperature 36.7 C 09/29/25 15:13 Pulse 97 H 09/29/25 15:13 Respiratory Rate 20 09/29/25 15:13 Blood Pressure 142/85 H 09/29/25 15:13 Blood Pressure Position Sitting 09/29/25 15:13 Pulse Oximetry 95 09/29/25 15:13 Oxygen Delivery Method Room Air 09/29/25 15:13 Oxygen Flow Rate 0 09/29/25 15:13 Medical Decision Making 75 yo male with hx of copd, ckd, esophagel cancer who was transferred on 09/19 for tracheal obstruction and had a stent placed per the patient comes in with 3 days of cough and shortness of breath. He denies any chest pain or fevers. On arrival he is 90% on room air and on 1 to 2 L nasal cannula is 95%. There is no JVD or leg swelling or calf tenderness. He is able to speak in full sentences. But is wheezing at the apices bilaterally and rhonchi at the bases bilaterally. I suspect COPD exacerbation but given his recent stent placement and his other medical problems we will check a CBC CMP troponins proBNP and a chest x-ray and if his renal function is adequate obtain CT of the chest with IV contrast to evaluate for patency of the stent and also when to do such as infiltrates and PE wall pt stable, labs show no emergent findings. He does feel improved after one neb, still has rhonchi at the bases and productive cough, will give another duoneb ct shows patent stent in trachea, no other signs of airway compromise and no infiltrates, did have air near his esophageal mass which is still present. Pt feeling improved, discussed with him and he is more comfortable with admission which I feel is reasonable for continued tx of copd Differential Diagnosis Differential Diagnosis: copd, pneumonia, tracheal obstruction Medical Records Medical records reviewed: Yes I reviewed the patient's medical records. Lab Data Lab results reviewed: Yes I reviewed the patient's lab results. ECG Data Attestation: I personally reviewed and interpreted this ECG (s) as follows: Prior ECG tracings: available for review Interpretation: sinus rate of 93 no stemi Quality:SDOH Health Related Social Needs: Health related social needs education Health related social needs details living in an apartment and become a caregiver. PFSH All Active Problems (Updated 09/29/25 @ 18:00 by Pacheco Watts MD) Esophageal mass (Acute) COPD exacerbation (Acute) Esophageal mass (Acute) Airway compromise (Acute) Dizziness of unknown cause (Acute) Left carotid stenosis (Acute) Left carotid stenosis (Chronic) CKD (chronic kidney disease) stage 3, GFR 30-59 ml/min (Acute) Esophageal mass (Chronic) Oropharyngeal dysphagia (Acute) Serum creatinine raised (Acute) Atrial tachycardia (Acute) History of hypotension (Acute) Dysphagia (Acute) Pruritic rash (Acute) Acute kidney injury (Acute) Heart failure (Acute) Nicotine dependence (Acute) Tobacco dependence (Acute) Heavy drinker (Acute) Alcohol abuse (Chronic) Alcohol dependence (Acute) Macrocytic anemia (Acute) Metabolic acidosis (Acute) Hyponatremia (Acute) Medical History TIA (transient ischemic attack) Carotid stenosis, bilateral Chronic kidney disease, stage 3b Microscopic hematuria Myocardial infarction Overweight Monoclonal gammopathy Malignant melanoma Pneumonia Social History Smoking/Tobacco Use Status: Current every day Smoking risk assessment performed?: Yes Alcohol Intake: former Drug use: Never Substance use type: does not use Housing: apartment
[2025-09-29 15:37] LABS: Abs Immature Grans 0.04 10^3/uL (0.0-0.06); BE (Venous) 6 mmol/L (-2-3); HCO3 (Venous) 31 mmol/L (23-28); HCT 30.9 % (40.0-50.0); HGB 9.9 g/dL (13.5-17.5); Immature Grans % 0.5 %; MCH 31.5 pg (27.0-33.0); MCHC 32.0 % (32.0-36.0); MCV 98 fL (80-95); MPV 10.2 fL (8.0-11.0); O2 Sat (Venous) 85 %; Platelet Count 240 10^3/uL (130-400); RBC 3.14 10^6/uL (4.36-5.78); RDW 12.4 % (11.8-14.1); RDW-SD 44.8 fL; TCO2 (Venous) 29 mmol/L (24-29); WBC 7.99 10^3/uL (4.4-10.8); pCO2 (Venous) 50 mmHg (41-51); pO2 (Venous) 51 mmHg
[2025-09-29] MEDS: Dexamethasone 10 MG/ML VIAL IVP (15:45)
[2025-09-29] MEDS: Albuterol/Ipratropium 3 ML UPD VIAL UPD ×2 (15:45→18:00)
[2025-09-29 16:03] LABS: ALT 55 U/L (16-63); AST 25 U/L (15-37); Albumin 2.4 g/dL (3.4-5.0); Alkaline Phosphatase 90 U/L (46-116); Anion Gap 4.3 mmol/L (3-11); BUN 43 mg/dL (7-18); Bilirubin, Total 0.4 mg/dL (0.2-1.0); CO2 31.7 mmol/L (21.0-32.0); Calcium 8.9 mg/dL (8.5-10.1); Chloride 103 mmol/L (98-107); Glucose 117 mg/dL (74-106); Magnesium 2.1 mg/dL (1.8-2.4); Potassium 4.5 mmol/L (3.5-5.1); Sodium 139 mmol/L (136-145); TSH (W/Ref FT4) 0.38 uIU/mL (0.36-3.74); Total Protein 8.0 g/dL (6.4-8.2); Troponin I 10 ng/L (<or=76)
--- NOTE | 2025-09-29 16:15 | DI.CT_ITS ---
Exam(s) CT NECK CHEST W EXAM: CT NECK CHEST W CLINICAL HISTORY: dyspnea, recent tracheal stent placement TECHNIQUE: Imaging Protocol: Axial computed tomography images with coronal and sagittal reformatted images were created and reviewed. Computer aided detection (CAD) was utilized. CONTRAST MATERIAL: Intravenous: Omnipaque 350Contrast volume:100 mL. COMPARISON: CT CT CHEST W from 09/19/2025 FINDINGS: Tracheobronchial tree: There has been interval placement of a tracheal stent beginning just below the level of the vocal cords and extending into the thoracic inlet. The airway is patent. No evidence of bronchiectasis. Pulmonary parenchyma: No consolidation or dominant measurable mass. Emphysematous changes are present in the lungs. There are no new pulmonary nodules. Mediastinum and Martha: No dominant adenopathy or fluid collection. There is again seen a proximal esophageal mass which is unchanged in size compared to the prior examination. There are small foci of air seen within the mass adjacent to the stent not present on the prior examination. Thyroid gland: Unremarkable. Pleura: No effusion or pneumothorax. Heart: The heart is not dilated. Coronary artery calcification is present. No pericardial effusion. Aorta: Thoracic aorta non-dilated. Atherosclerotic calcification is present. Pulmonary arteries: Due to the timing of the bolus, there is suboptimal opacification of the pulmonary arteries for evaluation of pulmonary emboli. Upper abdomen: Cholelithiasis. There is a PEG tube in place. Lymph nodes: The large right supraclavicular lymph node is again seen and unchanged in size. Bones: Within normal limits for the patient's age. Soft tissues: Unremarkable. Visualized intracranial structures: Within normal limits. Orbits and orbital soft tissues: Within normal limits. Visualized paranasal sinuses: Within normal limits. Pharynx: Within normal limits. Larynx: Within normal limits. Retropharyngeal space: Within normal limits. Parotids/submandibular: Within normal limits. Thyroid gland: Within normal limits. Lymphadenopathy: There is again seen an enlarged right supraclavicular lymph node which is unchanged in size. Trachea: There has been interval placement of a tracheal stent. The trachea is patent. Bones: Within normal limits for the patient's age. Carotids/Jugular: Within normal limits. There is compression of the right internal jugular vein secondary to the enlarged lymph node. Soft tissues: Within normal limits. IMPRESSION: 1. Interval placement of a tracheal stent. The stent is patent. 2. Stable size of the proximal esophageal mass consistent with carcinoma. There are few foci of air seen in the mass adjacent to the recently placed stent. There was air in the region on the prior examination. This is slightly increased. This may be related to the stent placement. Perforation cannot be excluded. 3. There is no focal fluid collections to suggest an abscess. 4. Stable thoracic adenopathy. RADIATION DOSE DELIVERED: 450.11mGy.cm Total DLP DATA REPOSITORY: All CT scans at this facility are submitted to the National Radiology Data Registry (NRDR) Dose Index Registry (DIR) with the [employer] (A[employer]). RADIATION OPTIMIZATION: All CT scans at this facility use at least one of these dose optimization techniques: automated exposure control; mA and/or kV adjustment per patient size (includes targeted exams where dose is matched to clinical indication); or iterative reconstruction.
[2025-09-29 16:31] LABS: COVID-19 PCR Negative (Negative); RSV PCR Negative (Negative)
[2025-09-29] MEDS: Normal Saline - Diluent 50 ML VIAL IJ (16:34)
[2025-09-29] MEDS: Omnipaque 350 MG/ML 100 ML BTL IJ (16:34)
[2025-09-29] MEDS: Normal Saline Flush 10 ML SYR IVP ×2 (16:35→21:57)
[2025-09-29 17:19] LABS: Troponin I 10 ng/L (<or=76)
[2025-09-29] MEDS: levoFLOXacin 750 MG/150 ML BAG 100 MG IVPB (18:00)
[2025-09-29 18:47] LABS: Glucose Negative (Negative)
[2025-09-29 18:52] LABS: WBC Negative HPF (0-5)
[2025-09-29 18:53] LABS: C & S Indicated? No
--- NOTE | 2025-09-29 18:55 | W.PM.HP.N ---
Date of service: 09/29/25 Time of Service: 18:55 Assessment and Plan Assessment and plan (1) COPD exacerbation: Start date: 09/29/25 Status: Acute Assessment and plan: This is a 75-year-old gentleman with recent advancing esophageal mass diagnosed as esophageal cancer on radiation and chemotherapy. This is because of obstruction of his trachea and he recently had a tracheal stent placed. He quit smoking 2 weeks ago with no alcohol for 3 weeks. He does have to spit up his secretions because of inability to swallow and he does have a PEG tube placed now with tube feedings. His weight is stabilized he is gaining weight. And that radiation when he was lying down he felt choking and was sent to the ED by evaluation found to be in exacerbation of his COPD. Maybe increase secretions, not because of recent stopping tobacco use. He did respond to nebulizers aggressively this will be continued with IV Levaquin and IV doxycycline until patient is stabilized. He may need nebulizer treatments at home. He is not oxygen dependent but did require low-dose oxygen in the ED. Plans are to return home and to his outpatient outpatient treatment. He is a full code. (2) Esophageal mass: Status: Chronic Assessment and plan: Diagnosed as esophageal cancer with ongoing treatment with radiation and chemotherapy. He has lost weight with some gain recently with a PEG tube placed. (3) CKD (chronic kidney disease) stage 3, GFR 30-59 ml/min: Status: Chronic Assessment and plan: This appears to have improved since he has had PEG tube feedings. (4) Tobacco dependence: Status: Chronic Assessment and plan: Now having quit 2 weeks ago with plans to continue off tobacco use. (5) Alcohol dependence: Status: Chronic Assessment and plan: Patient is now off alcohol for 3 weeks with alcohol level not measurable consistent with his history. He did have a urine drug screen done because of his history of alcohol use and it was positive for opiates with patient not prescribed opioids by review of the PDMP. I did review with the patient and he said he did receive a liquid pain medication from [facility] recently which he picked up at the local pharmacy. This may not show up on the PDMP immediately. He denies any drug use other than beer. He is at risk for self treatment but is comfortable during conversation about illicit drug use. He did take the medication the morning of presentation. History of Present Illness History of Present Illness Chief Complaint: Productive cough for 1 week with choking and radiation therapy. Narrative: This is a 75-year-old male patient was and May 2025 with TIAs manifested by dizziness which resolved on aspirin and Plavix but that he has carotid stenosis which is being addressed at [facility] with possible intervention by vascular surgery after treatment for his esophageal cancer which is ongoing. He had a esophageal cancer manifesting as an esophageal mass this year now advancing and on chemotherapy and radiation therapy with a tracheal stent placed weeks ago because of obstruction from the mass. The patient is having nothing by mouth with a PEG tube in place and tube feedings. He has lost weight since the onset of his esophageal mass but now is slightly gaining on tube feedings. He has a PEG tube. He does continue to spit and did just stop smoking 2 weeks ago having quit alcohol 3 weeks ago. He is declining a nicotine patch while hospitalized at this time for COPD exacerbation. He was in radiation therapy when he had a mask on and felt choking at which time he was sent to the ED for evaluation. He did cough up thick plugs in the ED and after treatment with nebulizers since admitted. He does have a wheeze and has difficulty talking because of his saliva secretions having intermittent mucous plugs. In the ED he was evaluated for his respiratory distress and had no elevation of WBC or fever but was requiring some oxygen supplementation with his room air oxygenation at 90% pulse oximeter. He is not on oxygen at home. He is being in short sentences because of his saliva secretions and slight wheezing. In the ED with nebulizer treatments as when he brought up a mucous plug. He was initiated on IV Levaquin and I added IV doxycycline with treatment for COPD exacerbation with IV Solu-Medrol and more aggressive nebulizer treatments. His tube feedings will be continued. His other medical therapy is stable. As stated there is a plan for intervention for his carotid stenosis after his esophageal cancer treatment is stabilized with no symptoms currently on Plavix. He remains a full code. Review of Systems Narrative: 13 point review of systems otherwise unrevealing or stable. [facility] All Active Problems (Updated 09/30/25 @ 07:33 by Karl Zeng) Esophageal mass (Chronic) COPD exacerbation (Acute) Esophageal mass (Acute) Airway compromise (Acute) Dizziness of unknown cause (Acute) Left carotid stenosis (Acute) Left carotid stenosis (Chronic) CKD (chronic kidney disease) stage 3, GFR 30-59 ml/min (Chronic) Esophageal mass (Chronic) Oropharyngeal dysphagia (Acute) Serum creatinine raised (Acute) Atrial tachycardia (Acute) History of hypotension (Acute) Dysphagia (Acute) Pruritic rash (Acute) Acute kidney injury (Acute) Heart failure (Acute) Nicotine dependence (Acute) Tobacco dependence (Chronic) Heavy drinker (Acute) Alcohol abuse (Chronic) Alcohol dependence (Chronic) Macrocytic anemia (Acute) Metabolic acidosis (Acute) Hyponatremia (Acute) Medical History TIA (transient ischemic attack) Carotid stenosis, bilateral Chronic kidney disease, stage 3b Microscopic hematuria Myocardial infarction Overweight Monoclonal gammopathy Malignant melanoma Pneumonia Social History Smoking/Tobacco Use Status: Current every day Smoking risk assessment performed?: Yes Alcohol Intake: former Drug use: Never Substance use type: does not use Housing: apartment Meds Allergies and Home Medications Allergies Allergy/AdvReac Type Severity Reaction Status Date / Time cefdinir Allergy Skin Rash Verified 09/29/25 15:14 Home Medications Medication Instructions Recorded Confirmed Type aspirin 81 mg tablet,delayed 81 mg PO DAILY 06/01/24 09/29/25 History release (Adult Aspirin Regimen) metoprolol succinate 25 mg 25 mg PO DAILY 06/01/24 09/29/25 History tablet,extended release 24 hr bupropion HCl 150 mg 24 hr tablet, 150 mg PO DAILY 05/20/25 09/29/25 History extended release (Wellbutrin XL) folic acid 1 mg tablet 1 mg PO DAILY 05/20/25 09/29/25 History magnesium oxide 400 mg PO DAILY 05/20/25 09/29/25 History atorvastatin 40 mg tablet 80 mg (2 x 40 mg) PO DAILY #0 tabs 06/18/25 09/29/25 Rx clopidogrel 75 mg tablet 75 mg PO DAILY #17 tabs 06/18/25 09/29/25 Rx docusate sodium 50 mg/5 mL oral 5 ml PO DAILY 09/19/25 09/29/25 History liquid prochlorperazine 25 mg rectal 25 mg [place] Q12H 09/19/25 09/29/25 History suppository prochlorperazine maleate 10 mg 10 mg PO Q6H PRN 10/20/25 10/30/25 History tablet Exam Narrative Exam Narrative: General: Patient appears appropriate for age, thinly built and cachectic, alert and oriented x 3 and in moderate distress having to spit saliva into a cup continuously and speaking in shortened sentences. He has a hoarse voice with intermittent coughing.. HEENT: Normocephalic, eyes with pupils equal and reactive to light symmetrically, extraocular movement intact and sclera anicteric. Oropharynx with moist mucosa and fair dentition. Neck: Supple without JVD. Back: Normal posture without CVA tenderness. Lungs: Fair aeration and clear to auscultatio without focalizing rales or rhonchi but upper airway noise with cough. Bronchovesicular breath sounds diffusely. Slight expiratory wheeze with upper airway rhonchi with cough. Heart: Regular rate and rhythm with no murmurs or gallops appreciated. Abdomen: Normal contour, soft and nontender to palpation with no palpable hepatosplenomegaly. PEG tube is in place. Bowel sounds positive all quadrants. Genitalia/rectal: Exam deferred. Skin: Darkly tanned, rough texture, otherwise normal color with skin warm and dry. Extremities: Without clubbing, cyanosis or pitting edema. Fair capillary refill. Neuro: Cranial nerves II through XII grossly intact, no focalizing motor deficits or tremor. Psych: Normal affect and mood. No abnormal thought processes. Remote and recent memory intact. Results Imaging Imaging Studies: EXAM: CT NECK CHEST W CLINICAL HISTORY: dyspnea, recent tracheal stent placement TECHNIQUE: Imaging Protocol: Axial computed tomography images with coronal and sagittal reformatted images were created and reviewed. Computer aided detection (CAD) was utilized. CONTRAST MATERIAL: Intravenous: Omnipaque 350Contrast volume:100 mL. COMPARISON: CT CT CHEST W from 09/19/2025 FINDINGS: Tracheobronchial tree: There has been interval placement of a tracheal stent beginning just below the level of the vocal cords and extending into the thoracic inlet. The airway is patent. No evidence of bronchiectasis. Pulmonary parenchyma: No consolidation or dominant measurable mass. Emphysematous changes are present in the lungs. There are no new pulmonary nodules. Mediastinum and Martha: No dominant adenopathy or fluid collection. There is again seen a proximal esophageal mass which is unchanged in size compared to the prior examination. There are small foci of air seen within the mass adjacent to the stent not present on the prior examination. Thyroid gland: Unremarkable. Pleura: No effusion or pneumothorax. Heart: The heart is not dilated. Coronary artery calcification is present. No pericardial effusion. Aorta: Thoracic aorta non-dilated. Atherosclerotic calcification is present. Pulmonary arteries: Due to the timing of the bolus, there is suboptimal opacification of the pulmonary arteries for evaluation of pulmonary emboli. Upper abdomen: Cholelithiasis. There is a PEG tube in place. Lymph nodes: The large right supraclavicular lymph node is again seen and unchanged in size. Bones: Within normal limits for the patient's age. Soft tissues: Unremarkable. Visualized intracranial structures: Within normal limits. Orbits and orbital soft tissues: Within normal limits. Visualized paranasal sinuses: Within normal limits. Pharynx: Within normal limits. Larynx: Within normal limits. Retropharyngeal space: Within normal limits. Parotids/submandibular: Within normal limits. Thyroid gland: Within normal limits. Lymphadenopathy: There is again seen an enlarged right supraclavicular lymph node which is unchanged in size. Trachea: There has been interval placement of a tracheal stent. The trachea is patent. Bones: Within normal limits for the patient's age. Carotids/Jugular: Within normal limits. There is compression of the right internal jugular vein secondary to the enlarged lymph node. Soft tissues: Within normal limits. IMPRESSION: 1. Interval placement of a tracheal stent. The stent is patent. 2. Stable size of the proximal esophageal mass consistent with carcinoma. There are few foci of air seen in the mass adjacent to the recently placed stent. There was air in the region on the prior examination. This is slightly increased. This may be related to the stent placement. Perforation cannot be excluded. 3. There is no focal fluid collections to suggest an abscess. 4. Stable thoracic adenopathy. Labs 09/30/25 06:16 09/30/25 06:16 Labs: Laboratory Results - last 24 hr 09/29/25 09/29/25 09/29/25 15:29 15:48 16:56 WBC 7.99 RBC 3.14 L Hgb 9.9 L Hct 30.9 L MCV 98 H MCH 31.5 MCHC 32.0 RDW 12.4 Plt Count 240 MPV 10.2 Immature Gran % 0.5 Neutrophils % 90.9 Lymphocytes % 6.0 Monocytes % 2.4 Eosinophils % 0.1 Basophils % 0.1 Nucleated RBC % 0.0 Absolute Neutrophils 7.26 H Absolute Lymphocytes 0.48 L Absolute Monocytes 0.19 Absolute Eosinophils 0.01 Absolute Basophils 0.01 VBG pH 7.40 VBG pCO2 50 VBG pO2 51 VBG HCO3 31 H VBG Total CO2 29 VBG O2 Saturation 85 VBG Base Excess 6 H Sodium 139 Potassium 4.5 Chloride 103 Carbon Dioxide 31.7 Anion Gap 4.3 BUN 43 H Creatinine 1.1 Est GFR (CKD-EPI 2020) 70.88 Glucose 117 H Calcium 8.9 Magnesium 2.1 Total Bilirubin 0.4 AST 25 ALT 55 Alkaline Phosphatase 90 Troponin I 10 10 NT-Pro-B Natriuret Pep 968 H Total Protein 8.0 Albumin 2.4 L TSH 0.38 Urine Color Urine Clarity Urine pH Ur Specific [place] Urine Protein Urine Ketones Urine Blood Urine Nitrite Urine Bilirubin Urine Urobilinogen Ur Leukocyte Esterase Urine RBC Urine WBC Ur Epithelial Cells Urine Crystals Urine Bacteria Urine Casts Urine Mucus Ur Culture Indicated? Urine Glucose COVID-19 Source Nasopharynx SARS-CoV-2 (PCR) Negative Influenza Type A (PCR) Negative Influenza Type B (PCR) Negative RSV (PCR) Negative 09/29/25 18:36 WBC RBC Hgb Hct MCV MCH MCHC RDW Plt Count MPV Immature Gran % Neutrophils % Lymphocytes % Monocytes % Eosinophils % Basophils % Nucleated RBC % Absolute Neutrophils Absolute Lymphocytes Absolute Monocytes Absolute Eosinophils Absolute Basophils VBG pH VBG pCO2 VBG pO2 VBG HCO3 VBG Total CO2 VBG O2 Saturation VBG Base Excess Sodium Potassium Chloride Carbon Dioxide Anion Gap BUN Creatinine Est GFR (CKD-EPI 2020) Glucose Calcium Magnesium Total Bilirubin AST ALT Alkaline Phosphatase Troponin I NT-Pro-B Natriuret Pep Total Protein Albumin TSH Urine Color Yellow Urine Clarity Clear Urine pH 7.0 Ur Specific [place] 1.010 Urine Protein Trace Urine Ketones Negative Urine Blood Small H Urine Nitrite Negative Urine Bilirubin Negative Urine Urobilinogen 0.2 Ur Leukocyte Esterase Negative Urine RBC 10-20 H Urine WBC Negative Ur Epithelial Cells Rare Urine Crystals Negative Urine Bacteria Rare Urine Casts Negative Urine Mucus Negative Ur Culture Indicated? No Urine Glucose Negative COVID-19 Source SARS-CoV-2 (PCR) Influenza Type A (PCR) Influenza Type B (PCR) RSV (PCR) Last Vital Signs Temp 36.7 C 09/29/25 15:13 Pulse 95 H 09/29/25 15:50 Resp 35 H 09/29/25 15:50 BP 153/99 H 09/29/25 15:46 Pulse Ox 96 09/29/25 15:50 Time Spent Time spent with Patient: >75 minutes Time was spent: preparing to see the patient(eg.review tests), obtaining and/or reviewing separately otained hiistory, ordering medications,tests, procedures, indepentently interpreting results and counseling the patient
--- NOTE | 2025-09-29 19:46 | W.PC.ACHO ---
Registration Status: REG ER Primary Language: Preferred Language: Polish ED Information & Data Chief Complaint RespSymp 09/29/25 15:23 Triage Note SoB, productive hacking 09/29/25 15:08 cough x3 days. Dx of esophageal cancer that is obstructing airway. Cancer center called today as the PT could not tolerate laying down long enough for treatment Medical / Surgical History (Last Reviewed 09/29/25 @ 18:56 by Karl Zeng) TIA (transient ischemic attack) Carotid stenosis, bilateral Chronic kidney disease, stage 3b Microscopic hematuria Myocardial infarction Overweight Monoclonal gammopathy Malignant melanoma Pneumonia Most Recent Vital Signs Temperature 36.7 C 09/29/25 15:13 Pulse 91 H 09/29/25 18:50 Pulse 91 H 09/29/25 18:50 Respiratory Rate 26 H 09/29/25 18:50 Respiratory Effort Short of Breath, Labored 09/29/25 15:19 Respiratory Depth Deep 09/29/25 15:19 Blood Pressure 103/58 L 09/29/25 18:46 Blood Pressure Mean 74 09/29/25 18:46 Blood Pressure Position Sitting 09/29/25 15:13 Pulse Oximetry 94 09/29/25 18:50 Oxygen Delivery Method Room Air 09/29/25 15:45 Oxygen Flow Rate 0 09/29/25 15:45 Allergies cefdinir Allergy (Verified 09/29/25 15:14) Skin Rash Active Medications Generic Name Dose Route Start Last Admin Trade Name Freq PRN Reason Stop Dose Admin Iohexol 100 ml 09/29/25 16:30 09/29/25 16:34 Omnipaque 350 Mg/Ml 100 Ml Btl IJ 10/29/25 23:59 100 ml DIRECTED CISCO Administration Sodium Chloride 0 ml 09/29/25 16:24 09/29/25 16:35 Normal Saline Flush 10 Ml Syr IVP 10 ml PRN PRN Administration Sodium Chloride 50 ml 09/29/25 16:30 09/29/25 16:34 Normal Saline - Diluent 50 Ml Vial IJ 50 ml DIRECTED CISCO Administration IV IV Catheter Type [Right Peripheral IV Antecubital] IV Catheter Gauge [Right 18 Antecubital] Diagnostics 09/29/25 09/29/25 09/29/25 Range/Units 19:09 18:36 18:10 WBC (4.4-10.8) 10^3/uL RBC (4.36-5.78) 10^6/uL Hgb (13.5-17.5) g/dL Hct (40.0-50.0) % MCV (80-95) fL MCH (27.0-33.0) pg MCHC (32.0-36.0) % RDW (11.8-14.1) % Plt Count (130-400) 10^3/uL MPV (8.0-11.0) fL Immature Gran % % Neutrophils % % Lymphocytes % % Monocytes % % Eosinophils % % Basophils % % Nucleated RBC % (0.0-0.3) % Absolute Neutrophils (1.2-6.7) 10^3/uL Absolute Lymphocytes (1.2-3.4) 10^3/uL Absolute Monocytes (0.1-0.8) 10^3/uL Absolute Eosinophils (0.0-0.7) 10^3/uL Absolute Basophils (0.0-0.2) 10^3/uL VBG pH (7.31-7.41) VBG pCO2 (41-51) mmHg VBG pO2 mmHg VBG HCO3 (23-28) mmol/L VBG Total CO2 (24-29) mmol/L VBG O2 Saturation % VBG Base Excess (-2-3) mmol/L Sodium (136-145) mmol/L Potassium (3.5-5.1) mmol/L Chloride (98-107) mmol/L Carbon Dioxide (21.0-32.0) mmol/L Anion Gap (3-11) mmol/L BUN (7-18) mg/dL Creatinine (0.70-1.30) mg/dL Est GFR (CKD-EPI 2020) (mL/min/1.73m2) Glucose (74-106) mg/dL Calcium (8.5-10.1) mg/dL Magnesium (1.8-2.4) mg/dL Total Bilirubin (0.2-1.0) mg/dL AST (15-37) U/L ALT (16-63) U/L Alkaline Phosphatase (46-116) U/L Troponin I Pending (<or=76) ng/L NT-Pro-B Natriuret Pep (<300) pg/mL Total Protein (6.4-8.2) g/dL Albumin (3.4-5.0) g/dL TSH (0.36-3.74) uIU/mL Urine Color Yellow (Yellow) Urine Clarity Clear (Clear) Urine pH 7.0 (5-8) Ur Specific [place] 1.010 (1.005-1.025) Urine Protein Trace (Neg-Trace) mg/dL Urine Ketones Negative (Negative) mg/dL Urine Blood Small H (Negative) Urine Nitrite Negative (Negative) Urine Bilirubin Negative (Negative) Urine Urobilinogen 0.2 (Up to 0.2) mg/dL Ur Leukocyte Esterase Negative (Negative) Urine RBC 10-20 H (0-2) HPF Urine WBC Negative (0-5) HPF Ur Epithelial Cells Rare (Negative) HPF Urine Crystals Negative (Negative) HPF Urine Bacteria Rare (Negative) HPF Urine Casts Negative (Negative) LPF Urine Mucus Negative (Negative) Ur Culture Indicated? No Urine Glucose Negative (Negative) mg/dL Ethyl Alcohol Pending COVID-19 Source SARS-CoV-2 (PCR) (Negative) Influenza Type A (PCR) (Negative) Influenza Type B (PCR) (Negative) RSV (PCR) (Negative) 09/29/25 09/29/25 09/29/25 Range/Units 16:56 15:48 15:29 WBC 7.99 (4.4-10.8) 10^3/uL RBC 3.14 L (4.36-5.78) 10^6/uL Hgb 9.9 L (13.5-17.5) g/dL Hct 30.9 L (40.0-50.0) % MCV 98 H (80-95) fL MCH 31.5 (27.0-33.0) pg MCHC 32.0 (32.0-36.0) % RDW 12.4 (11.8-14.1) % Plt Count 240 (130-400) 10^3/uL MPV 10.2 (8.0-11.0) fL Immature Gran % 0.5 % Neutrophils % 90.9 % Lymphocytes % 6.0 % Monocytes % 2.4 % Eosinophils % 0.1 % Basophils % 0.1 % Nucleated RBC % 0.0 (0.0-0.3) % Absolute Neutrophils 7.26 H (1.2-6.7) 10^3/uL Absolute Lymphocytes 0.48 L (1.2-3.4) 10^3/uL Absolute Monocytes 0.19 (0.1-0.8) 10^3/uL Absolute Eosinophils 0.01 (0.0-0.7) 10^3/uL Absolute Basophils 0.01 (0.0-0.2) 10^3/uL VBG pH 7.40 (7.31-7.41) VBG pCO2 50 (41-51) mmHg VBG pO2 51 mmHg VBG HCO3 31 H (23-28) mmol/L VBG Total CO2 29 (24-29) mmol/L VBG O2 Saturation 85 % VBG Base Excess 6 H (-2-3) mmol/L Sodium 139 (136-145) mmol/L Potassium 4.5 (3.5-5.1) mmol/L Chloride 103 (98-107) mmol/L Carbon Dioxide 31.7 (21.0-32.0) mmol/L Anion Gap 4.3 (3-11) mmol/L BUN 43 H (7-18) mg/dL Creatinine 1.1 (0.70-1.30) mg/dL Est GFR (CKD-EPI 2020) 70.88 (mL/min/1.73m2) Glucose 117 H (74-106) mg/dL Calcium 8.9 (8.5-10.1) mg/dL Magnesium 2.1 (1.8-2.4) mg/dL Total Bilirubin 0.4 (0.2-1.0) mg/dL AST 25 (15-37) U/L ALT 55 (16-63) U/L Alkaline Phosphatase 90 (46-116) U/L Troponin I 10 10 (<or=76) ng/L NT-Pro-B Natriuret Pep 968 H (<300) pg/mL Total Protein 8.0 (6.4-8.2) g/dL Albumin 2.4 L (3.4-5.0) g/dL TSH 0.38 (0.36-3.74) uIU/mL Urine Color (Yellow) Urine Clarity (Clear) Urine pH (5-8) Ur Specific [place] (1.005-1.025) Urine Protein (Neg-Trace) mg/dL Urine Ketones (Negative) mg/dL Urine Blood (Negative) Urine Nitrite (Negative) Urine Bilirubin (Negative) Urine Urobilinogen (Up to 0.2) mg/dL Ur Leukocyte Esterase (Negative) Urine RBC (0-2) HPF Urine WBC (0-5) HPF Ur Epithelial Cells (Negative) HPF Urine Crystals (Negative) HPF Urine Bacteria (Negative) HPF Urine Casts (Negative) LPF Urine Mucus (Negative) Ur Culture Indicated? Urine Glucose (Negative) mg/dL Ethyl Alcohol COVID-19 Source Nasopharynx SARS-CoV-2 (PCR) Negative (Negative) Influenza Type A (PCR) Negative (Negative) Influenza Type B (PCR) Negative (Negative) RSV (PCR) Negative (Negative) 09/29/25 15:45 Blood Culture - Pending Blood 09/29/25 15:46 Blood Culture - Pending Blood Intake and Output - 24 Hour Total 09/29/25 15:05 thru 09/29/25 15:33 Intake Total 10 Balance 10 Weight 65.5 kg Intake: IV 10 Falls Risk Assessment History of Falls No History 09/29/25 15:13 Contributing Factors No Factors 09/29/25 15:13 Ambulatory Aids Independent 09/29/25 15:13 Tubes/Lines None 09/29/25 15:13 Gait Evaluation No gait disturbance 09/29/25 15:13 Cognition No cognitive impairment 09/29/25 15:13 Fall Total Score 0 09/29/25 15:13 Level of Risk Standard/Low Risk 09/29/25 15:13 Problems (Last Reviewed 09/29/25 @ 18:56 by Karl Zeng) Esophageal mass (Acute) COPD exacerbation (Acute) CKD (chronic kidney disease) stage 3, GFR 30-59 ml/min (Acute) Tobacco dependence (Acute) Alcohol dependence (Acute) v v v v v v v v v Sending and/or Receiving Nurses: Please use comment section below to note any information pertinent to the patient hand-off not included above. Information / Comments: SOB,cough, recent esophageal stent placement on 09/19, smoker, pt is taking breathing treatment at home Q4h at [facility], [facility], [facility] IV access, pt is on 2LNC with O 2 96%, independent daily activity. pt has an appointment for radiation tomorrow. Report received from: [facility]
[2025-09-29 21:29] LABS: Cannabinoids THC Negative (Negative)
[2025-09-29] MEDS: methylPREDNISolone SUCC 125 MG VIAL 80 MG IVP (21:56)
[2025-09-29] MEDS: DOXYCYCLINE 100 MG in Normal Saline 100 ML IVPB (21:57)
[2025-09-29 22:43] LABS: Troponin I 8 ng/L (<or=76)
[2025-09-30] VITALS (13 sets, daily range): BP systolic 103–120; BP diastolic 56–86; PULSE 74–85; RESP 15–18; TEMP 36.2–36.9; O2SAT 94–97
[2025-09-30] MEDS: Albuterol/Ipratropium 3 ML UPD VIAL UPD ×4 (06:15→23:38)
[2025-09-30 06:51] LABS: HCT 31.5 % (40.0-50.0); HGB 10.2 g/dL (13.5-17.5); MCH 32.6 pg (27.0-33.0); MCHC 32.4 % (32.0-36.0); MCV 101 fL (80-95); MPV 11.2 fL (8.0-11.0); Platelet Count 206 10^3/uL (130-400); RBC 3.13 10^6/uL (4.36-5.78); RDW 12.3 % (11.8-14.1); RDW-SD 45.3 fL; WBC 6.96 10^3/uL (4.4-10.8)
[2025-09-30 06:54] LABS: INR 1.1 (0.9-1.1); Prothrombin Time 11.4 sec (9.1-11.1)
[2025-09-30 07:11] LABS: ALT 45 U/L (16-63); AST 26 U/L (15-37); Albumin 2.2 g/dL (3.4-5.0); Alkaline Phosphatase 89 U/L (46-116); Anion Gap 11.0 mmol/L (3-11); BUN 46 mg/dL (7-18); Bilirubin, Total 0.4 mg/dL (0.2-1.0); CO2 28.0 mmol/L (21.0-32.0); Calcium 9.6 mg/dL (8.5-10.1); Chloride 101 mmol/L (98-107); Glucose 129 mg/dL (74-106); Magnesium 2.3 mg/dL (1.8-2.4); Potassium 4.4 mmol/L (3.5-5.1); Sodium 140 mmol/L (136-145); Total Protein 8.1 g/dL (6.4-8.2)
[2025-09-30] MEDS: Metoprolol CR 25 MG TABCR PO (08:12)
[2025-09-30] MEDS: buPROPion-XL 150 MG TABCR PO (08:12)
[2025-09-30] MEDS: Clopidogrel 75 MG TAB PO (08:13)
[2025-09-30] MEDS: Magnesium Oxide 400 MG TAB PO (08:14)
[2025-09-30] MEDS: Aspirin E.C. 81 MG TABEC PO (08:14)
[2025-09-30] MEDS: Enoxaparin 40 MG/0.4 ML SYR SC (08:15)
[2025-09-30] MEDS: Folic Acid 1 MG TAB PO (08:15)
[2025-09-30] MEDS: Atorvastatin 40 MG TAB 80 MG PO (08:15)
[2025-09-30] MEDS: Normal Saline Flush 10 ML SYR IVP ×2 (08:18→20:41)
--- NOTE | 2025-09-30 08:59 | INITIAL_ITS ---
Date of service: 09/30/25 Time of Service: 08:59 Care Management Initial Assmt Initial Assessment Reason for Hospitalization: COPD Exacerbation Functional Status/Living Situation Patient Presentation: Kishan was sitting up in bed when CM met with him. He was alert and oriented and easily engaged with CM. Kishan lives in an apartment in [place]. He has a roommate that he helped care for until he became ill himself. He has 5 children; 3 of his children live in [place], one is in [place] and the other lives in [place]. he stated that they are close and in frequent contact with one another .Kishan shared that he was diagnosed with cancer this year and is undergoing chemotherapy and radiation. He does not drive but is otherwise independnet with ADLs and IADLs. Kishan does have a G-tube with tube feeding provided by [facility], but does not receive any other services. 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.) Instrumental Activities of Daily Living (ADLs): Independent Medications Medication Management: No Issues/Barriers identified Advance Directives Advance Directives: Do you have an Advance Directive: N 08/18/ , 13:21 AD On File at [facility]: N 08/18/16, 13:21 Date Asked 10/01/25 09/28/25, 06:39 AD Date Reviewed COLST On File at [facility] COLST Date Scanned Code Status Resuscitation Status Full Code Portal Pt does not currently have a portal and education provided: Yes Insurance Coverage/Financial Issues Insurance: Medicare Care Team Visit Care Team Role Provider Type Bal Jacqeus MD [facility] STAFF PHYSICIAN Lewis Kelley Primary Care Provider NON-[facility] STAFF PHYSICIAN Pacheco Watts MD Emergency Provider [facility] STAFF PHYSICIAN Karl Zeng Admit Provider NON-[facility] STAFF PHYSICIAN Attending Provider Discharge Potential Discharge Needs: PCP F/U Appt Anticipated Barriers to Discharge: None Identified Patient/Family Education Needs: Review discharge instructions, discuss Ask Me Three Transportation: Private vehicle Plan: Anticipate Kishan will be discharged home with no new services when medically cleared. He will follow up with his PCP and plan of care and transport with family. CM will follow and continue to support discharge planning efforts, Social Determinants of Health Screening Will the Patient Participate in the Screening?: Declined to provide PFSH All Active Problems (Updated 09/30/25 @ 07:33 by Karl Zeng) Esophageal mass (Chronic) COPD exacerbation (Acute) Esophageal mass (Acute) Airway compromise (Acute) Dizziness of unknown cause (Acute) Left carotid stenosis (Acute) Left carotid stenosis (Chronic) CKD (chronic kidney disease) stage 3, GFR 30-59 ml/min (Chronic) Esophageal mass (Chronic) Oropharyngeal dysphagia (Acute) Serum creatinine raised (Acute) Atrial tachycardia (Acute) History of hypotension (Acute) Dysphagia (Acute) Pruritic rash (Acute) Acute kidney injury (Acute) Heart failure (Acute) Nicotine dependence (Acute) Tobacco dependence (Chronic) Heavy drinker (Acute) Alcohol abuse (Chronic) Alcohol dependence (Chronic) Macrocytic anemia (Acute) Metabolic acidosis (Acute) Hyponatremia (Acute) Medical History TIA (transient ischemic attack) Carotid stenosis, bilateral Chronic kidney disease, stage 3b Microscopic hematuria Myocardial infarction Overweight Monoclonal gammopathy Malignant melanoma Pneumonia Social History Smoking/Tobacco Use Status: Current every day Smoking risk assessment performed?: Yes Alcohol Intake: former Drug use: Never Substance use type: does not use Housing: apartment
[2025-09-30] MEDS: methylPREDNISolone SUCC 125 MG VIAL 80 MG IVP (11:35)
[2025-09-30] MEDS: DOXYCYCLINE 100 MG in Normal Saline 100 ML IVPB ×2 (11:41→22:34)
[2025-09-30] MEDS: predniSONE 20 MG TAB 40 MG NG (13:24)
--- NOTE | 2025-09-30 14:22 | W.PM.PROGNOT ---
Date of Service Date of service: 09/30/25 Time of Service: 14:22 Assessment and Plan Assessment and plan (1) COPD exacerbation: Start date: 09/29/25 Status: Acute Assessment and plan: Not hypoxic but with difficulty managing sputum in the setting of tracheal stent placed 8 days ago. Improving on antibiotics and steroids Transition steroids to per NG No focal pneumonia, stop levofloxacin, continue doxycycline and nebs. Home in AM if stable. (2) Esophageal mass: Status: Chronic Assessment and plan: Diagnosed as esophageal cancer with ongoing treatment with radiation and chemotherapy. He has lost weight with some gain recently with a PEG tube placed. Difficulty tolerating radiation due to cough/sputum as above, plans to f/u down at [facility] after discharge, 10/04. (3) Tobacco dependence: Status: Chronic Assessment and plan: Now having quit 2 weeks ago with plans to continue off tobacco use. Denies cravings (4) Alcohol dependence: Status: Chronic Assessment and plan: Patient is now off alcohol for 3 weeks with alcohol level not measurable consistent with his history. He doesn't think he needs medical help to stay away from alcohol. Subjective Subjective Patient reports: voiding w/o difficulty and shortness of breath; denies diarrhea, nausea, vomiting or fever Interval history since last seen: He is still coughing up sputum, but less. SOB better overall. He is worried about roommate at home that smokes in the house. Exam Narrative Exam Narrative: Gen: alert and oriented, NAD Lungs: Diffusely deminished, but no rales/wheezes currently, no stridor but course on inspiration. Normal effort at rest. CV: RRR, no m/g/r ABD: soft, NT/ND. tube c/d/i ext: no c/c/e Objective Last Vital Signs Temp 36.9 C 09/30/25 11:23 Pulse 83 09/30/25 11:23 Resp 16 09/30/25 11:23 BP 103/56 L 09/30/25 11:23 Pulse Ox 96 09/30/25 11:23 Laboratory Results - last 24 hr 09/29/25 09/29/25 09/29/25 06:16 15:29 15:48 WBC 7.99 RBC 3.14 L Hgb 9.9 L Hct 30.9 L MCV 98 H MCH 31.5 MCHC 32.0 RDW 12.4 Plt Count 240 MPV 10.2 Immature Gran % 0.5 Neutrophils % 90.9 Lymphocytes % 6.0 Monocytes % 2.4 Eosinophils % 0.1 Basophils % 0.1 Nucleated RBC % 0.0 Absolute Neutrophils 7.26 H Absolute Lymphocytes 0.48 L Absolute Monocytes 0.19 Absolute Eosinophils 0.01 Absolute Basophils 0.01 PT 11.4 H INR 1.1 VBG pH 7.40 VBG pCO2 50 VBG pO2 51 VBG HCO3 31 H VBG Total CO2 29 VBG O2 Saturation 85 VBG Base Excess 6 H Sodium 139 Potassium 4.5 Chloride 103 Carbon Dioxide 31.7 Anion Gap 4.3 BUN 43 H Creatinine 1.1 Est GFR (CKD-EPI 2020) 70.88 Glucose 117 H Calcium 8.9 Magnesium 2.1 Total Bilirubin 0.4 AST 25 ALT 55 Alkaline Phosphatase 90 Troponin I 10 NT-Pro-B Natriuret Pep 968 H Total Protein 8.0 Albumin 2.4 L TSH 0.38 Urine Color Urine Clarity Urine pH Ur Specific [place] Urine Protein Urine Ketones Urine Blood Urine Nitrite Urine Bilirubin Urine Urobilinogen Ur Leukocyte Esterase Urine RBC Urine WBC Ur Epithelial Cells Urine Crystals Urine Bacteria Urine Casts Urine Mucus Ur Culture Indicated? Urine Glucose Urine Opiates Screen Urine Methadone Screen Ur Barbiturates Screen Ur Tricyclics Screen Ur Amphetamines Screen U Benzodiazepines Scrn Urine Cocaine Screen Ur THC Screen Ethyl Alcohol COVID-19 Source Nasopharynx SARS-CoV-2 (PCR) Negative Influenza Type A (PCR) Negative Influenza Type B (PCR) Negative RSV (PCR) Negative 09/29/25 09/29/25 09/29/25 16:56 18:36 19:50 WBC RBC Hgb Hct MCV MCH MCHC RDW Plt Count MPV Immature Gran % Neutrophils % Lymphocytes % Monocytes % Eosinophils % Basophils % Nucleated RBC % Absolute Neutrophils Absolute Lymphocytes Absolute Monocytes Absolute Eosinophils Absolute Basophils PT INR VBG pH VBG pCO2 VBG pO2 VBG HCO3 VBG Total CO2 VBG O2 Saturation VBG Base Excess Sodium Potassium Chloride Carbon Dioxide Anion Gap BUN Creatinine Est GFR (CKD-EPI 2020) Glucose Calcium Magnesium Total Bilirubin AST ALT Alkaline Phosphatase Troponin I 10 NT-Pro-B Natriuret Pep Total Protein Albumin TSH Urine Color Yellow Urine Clarity Clear Urine pH 7.0 Ur Specific [place] 1.010 Urine Protein Trace Urine Ketones Negative Urine Blood Small H Urine Nitrite Negative Urine Bilirubin Negative Urine Urobilinogen 0.2 Ur Leukocyte Esterase Negative Urine RBC 10-20 H Urine WBC Negative Ur Epithelial Cells Rare Urine Crystals Negative Urine Bacteria Rare Urine Casts Negative Urine Mucus Negative Ur Culture Indicated? No Urine Glucose Negative Urine Opiates Screen Urine Methadone Screen Ur Barbiturates Screen Ur Tricyclics Screen Ur Amphetamines Screen U Benzodiazepines Scrn Urine Cocaine Screen Ur THC Screen Ethyl Alcohol < 3.0 COVID-19 Source SARS-CoV-2 (PCR) Influenza Type A (PCR) Influenza Type B (PCR) RSV (PCR) 09/29/25 09/29/25 09/30/25 20:42 22:16 06:16 WBC 6.96 RBC 3.13 L Hgb 10.2 L Hct 31.5 L MCV 101 H MCH 32.6 MCHC 32.4 RDW 12.3 Plt Count 206 MPV 11.2 H Immature Gran % Neutrophils % Lymphocytes % Monocytes % Eosinophils % Basophils % Nucleated RBC % Absolute Neutrophils Absolute Lymphocytes Absolute Monocytes Absolute Eosinophils Absolute Basophils PT INR VBG pH VBG pCO2 VBG pO2 VBG HCO3 VBG Total CO2 VBG O2 Saturation VBG Base Excess Sodium 140 Potassium 4.4 Chloride 101 Carbon Dioxide 28.0 Anion Gap 11.0 BUN 46 H Creatinine 1.2 Est GFR (CKD-EPI 2020) 63.85 Glucose 129 H Calcium 9.6 Magnesium 2.3 Total Bilirubin 0.4 AST 26 ALT 45 Alkaline Phosphatase 89 Troponin I 8 NT-Pro-B Natriuret Pep Total Protein 8.1 Albumin 2.2 L TSH Urine Color Urine Clarity Urine pH Ur Specific [place] Urine Protein Urine Ketones Urine Blood Urine Nitrite Urine Bilirubin Urine Urobilinogen Ur Leukocyte Esterase Urine RBC Urine WBC Ur Epithelial Cells Urine Crystals Urine Bacteria Urine Casts Urine Mucus Ur Culture Indicated? Urine Glucose Urine Opiates Screen Positive A Urine Methadone Screen Negative Ur Barbiturates Screen Negative Ur Tricyclics Screen Negative Ur Amphetamines Screen Negative U Benzodiazepines Scrn Negative Urine Cocaine Screen Negative Ur THC Screen Negative Ethyl Alcohol COVID-19 Source SARS-CoV-2 (PCR) Influenza Type A (PCR) Influenza Type B (PCR) RSV (PCR) PAWSS Have you Been Recently Intoxicated or Drunk Within the Last 30 days?: No Have you Ever Experienced Previous Episodes of Alcohol Withdrawal?: No Have you ever Experienced Withdrawal Seizures?: No Have you ever Experienced Delirium Tremens(DT)s?: No Have you ever undergone Alcohol Rehabilitation Treatment (i.e, inpt ot outpatient treatment programs)?: No Have you ever Experienced Blackouts?: No Have you ever Combined Alcohol with other Downers within the last 90 days?: No Have you ever Combined Alcohol with any other Substance of Abuse during the last 90 days?: No Positive Blood Alcohol level on Presentation? [PCS.BAL]: No Evidence of Increased Autonomic Activity (i.e. HR>120, tremor, sweating, agitation, nausea)?: No Result: 0 Time Spent with Patient Time Spent with Patient: 35-49 minutes Time was spent: preparing to see the patient(eg.review tests), obtaining and/or reviewing separately otained hiistory, ordering medications,tests, procedures, referring, communicating with other health hearing healthcare practitioner, indepentently interpreting results, counseling the patient and care coordination
[2025-10-01 03:05] VITALS: BP 131/77; PULSE 81; RESP 18; TEMP 36.5; O2SAT 96
[2025-10-01 05:41] VITALS: PULSE 74; RESP 16; O2SAT 98
[2025-10-01] MEDS: Albuterol/Ipratropium 3 ML UPD VIAL UPD ×2 (05:41→11:45)
[2025-10-01 05:46] VITALS: PULSE 72
[2025-10-01 06:55] LABS: HCT 29.0 % (40.0-50.0); HGB 9.5 g/dL (13.5-17.5); MCH 32.6 pg (27.0-33.0); MCHC 32.8 % (32.0-36.0); MCV 100 fL (80-95); MPV 10.7 fL (8.0-11.0); Platelet Count 208 10^3/uL (130-400); RBC 2.91 10^6/uL (4.36-5.78); RDW 12.4 % (11.8-14.1); RDW-SD 44.8 fL; WBC 8.84 10^3/uL (4.4-10.8)
[2025-10-01 07:27] LABS: ALT 58 U/L (16-63); AST 36 U/L (15-37); Albumin 2.2 g/dL (3.4-5.0); Alkaline Phosphatase 84 U/L (46-116); Anion Gap 7.9 mmol/L (3-11); BUN 62 mg/dL (7-18); Bilirubin, Total 0.3 mg/dL (0.2-1.0); CO2 31.1 mmol/L (21.0-32.0); Calcium 9.1 mg/dL (8.5-10.1); Chloride 104 mmol/L (98-107); Glucose 119 mg/dL (74-106); Magnesium 2.2 mg/dL (1.8-2.4); Potassium 4.4 mmol/L (3.5-5.1); Sodium 143 mmol/L (136-145); Total Protein 7.5 g/dL (6.4-8.2)
[2025-10-01 08:36] VITALS: BP 106/81; PULSE 76; RESP 16; TEMP 36.2; O2SAT 97
[2025-10-01] MEDS: Clopidogrel 75 MG TAB PO (09:10)
[2025-10-01] MEDS: Aspirin E.C. 81 MG TABEC PO (09:10)
[2025-10-01] MEDS: Folic Acid 1 MG TAB PO (09:10)
[2025-10-01] MEDS: Metoprolol CR 25 MG TABCR PO (09:10)
[2025-10-01] MEDS: Atorvastatin 40 MG TAB 80 MG PO (09:10)
[2025-10-01] MEDS: buPROPion-XL 150 MG TABCR PO (09:10)
[2025-10-01] MEDS: Enoxaparin 40 MG/0.4 ML SYR SC (09:11)
[2025-10-01] MEDS: Magnesium Oxide 400 MG TAB PO (09:11)
[2025-10-01] MEDS: Normal Saline Flush 10 ML SYR IVP (09:13)
[2025-10-01] MEDS: DOXYCYCLINE 100 MG in Normal Saline 100 ML IVPB (10:13)
--- NOTE | 2025-10-01 10:19 | W.PM.DS.N ---
Date of service: 10/01/25 Time of Service: 10:19 DS: Diagnosis Discharge Diagnosis (1) COPD exacerbation: Status: Acute (2) Esophageal mass: Status: Chronic (3) Tobacco dependence: Status: Chronic (4) Alcohol dependence: Status: Chronic Discharge Plan Disposition Patient Disposition: Home Condition: Improving Discharge Details Reason For Visit: COPD Exacerbation Admit Date/Time: 09/29/25 19:09 Admit Provider: Karl Zeng Attending Provider: Karl Zeng [facility] Hospital Course: 75-year-old gentleman with recent advancing esophageal mass diagnosed as esophageal cancer on radiation and chemotherapy, with PEG tube, 2 weeks since quitting smoking, 8 days after tracheal stent, presenting with shortness of breath and increased sputum production. Neck and chest CT on admission did not show pneumonia or unexpected pathology. He was never hypoxic, but was short of breath and had difficulty clearing his sputum. He was admissed to observation stattus and treated with steroids and antibiotics. Initially he was given levofloxacin, but then transtioned to doxycyline. His breathing and sputum production did improve some. He was sent home with 3 more days of liquid prednisolone and doxycycline to be given via his PEG as well as prn bronchodilators. He has follow up with oncology at [facility] this week. He felt good about recent cessation of smoking and alcohol. He did identify his roommate's ongoing smoking inside the house as a trigger for worsening of his symptoms. An alternative living situation would be ideal medically. Home Meds and New Rx's Prescriptions: New ipratropium-albuterol 0.5 mg-3 mg(2.5 mg base)/3 mL Solution For Nebulization 3 ml UPD Q6H Qty: 48 1RF prednisolone 15 mg/5 mL solution 45 mg feeding tube DAILY 3 Days Qty: 45 0RF doxycycline monohydrate 25 mg/5 mL suspension for reconstitution 100 mg feeding tube BID 5 Days Qty: 200 0RF Continued aspirin [Adult Aspirin Regimen] 81 mg tablet,delayed release (DR/EC) 81 mg PO DAILY metoprolol succinate 25 mg tablet extended release 24 hr 25 mg PO DAILY folic acid 1 mg tablet 1 mg PO DAILY bupropion HCl [Wellbutrin XL] 150 mg tablet extended release 24 hr 150 mg PO DAILY magnesium oxide 400 mg magnesium tablet 400 mg PO DAILY atorvastatin 40 mg tablet 80 mg PO DAILY Qty: 0 0RF clopidogrel 75 mg Tablet 75 mg PO DAILY Qty: 17 0RF docusate sodium 50 mg/5 mL liquid 5 ml PO DAILY Patient Comments: TAKE 5 ML BY MOUTH EVERY DAY FOR CONSTIPATION, MAY INCREASE TO 10ML DAILY NEEDED prochlorperazine maleate 10 mg tablet 10 mg PO Q6H PRN Patient Comments: TAKE ONE TABLET BY MOUTH EVERY 6 HOURS NEEDED FOR NAUSEA prochlorperazine 25 mg suppository 25 mg GA Q12H Patient Comments: INSERT ONE SUPPOSITORY RECTALLY EVERY 12 HOURS NEEDED FOR NAUSEA Discharge Instructions Additional Instructions: Continue to try to avoid smoke. An N-95 mask can help. you have 5 more days of antibiotics and 3 more days of steroids to help your breathing you can also use the nebulized medication as needed for breathing follow up with oncology as planned. Activity:: Activity as Tolerated Equipment/Supplies:: No Equipment Needed Diet:: tube feeds Discharge Orders Discharge Orders: Discharge Order (Routine); Ordered 10/01/25 Ordered By: Bal Jacques DS: Summary Time Spent with Patient providing and/or coordinating discharge services: Less than 30 minutes Status at Discharge Functional status at discharge: independent ambulation Overall status at discharge: patient is progressing back to baseline Mental Status: mental status grossly normal Speech and Movement: speech and movement normal Mood: congruent mood Affect: normal affect Quality:SDOH Health Related Social Needs: Health related social needs education Health related social needs details living in an apartment and become a caregiver. Exam Narrative Exam Narrative: Gen: alert and oriented, NAD Lungs: Diffusely deminished, but no rales/wheezes currently, no stridor but course on inspiration. Normal effort at rest. CV: RRR, no m/g/r ABD: soft, NT/ND. tube c/d/i ext: no c/c/e Psych Mental Status: mental status grossly normal Speech and Movement: speech and movement normal Mood: congruent mood Affect: normal affect DS: Data Vitals/I&O Vitals and I&O: Vital Signs Temperature 36.2 C L 10/01/25 08:36 Temperature Source Temporal Artery Scan 10/01/25 08:36 Pulse 76 10/01/25 08:36 Pulse 91 H 09/29/25 18:50 Respiratory Rate 16 10/01/25 08:36 Respiratory Effort Normal, Non-Labored 09/29/25 21:33 Respiratory Depth Normal 09/29/25 21:33 Respiratory Pattern Normal 09/29/25 21:33 Blood Pressure 106/81 10/01/25 08:36 Blood Pressure Mean 89 10/01/25 08:36 Blood Pressure Position Sitting 09/29/25 15:13 Pulse Oximetry 97 10/01/25 08:36 Oxygen Delivery Method Room Air 10/01/25 08:36 Oxygen Flow Rate 0 10/01/25 08:36 Pain Level 0 10/01/25 03:05 Intake & Output 09/30/25 09/30/25 10/01/25 11:59 23:59 11:59 Intake Total 480 / 1165 585 / 1165 500 / 500 Output Total 250 / 320 70 / 320 Balance 230 / 845 515 / 845 500 / 500 Weight 63.957 kg 62.823 kg Intake: IV 105 / 205 100 / 100 Intake, Tube Feeding Amount 480 / 960 480 / 960 400 / 400 Output: Urine 250 / 250 Output, Residual 0 / 70 70 / 70 Other: Urine Color Pale Urine Appearance Clear Urine Odor Normal Comment Pt voids ind. in urinal. Stool Size Moderate Stool Characteristics Soft Brown Data Completed and Pending Pending Labs at Discharge: 09/29/25 09/29/25 09/29/25 06:16 15:29 15:48 WBC 7.99 RBC 3.14 L Hgb 9.9 L Hct 30.9 L MCV 98 H MCH 31.5 MCHC 32.0 RDW 12.4 Plt Count 240 MPV 10.2 Immature Gran % 0.5 Neutrophils % 90.9 Lymphocytes % 6.0 Monocytes % 2.4 Eosinophils % 0.1 Basophils % 0.1 Nucleated RBC % 0.0 Absolute Neutrophils 7.26 H Absolute Lymphocytes 0.48 L Absolute Monocytes 0.19 Absolute Eosinophils 0.01 Absolute Basophils 0.01 PT 11.4 H INR 1.1 VBG pH 7.40 VBG pCO2 50 VBG pO2 51 VBG HCO3 31 H VBG Total CO2 29 VBG O2 Saturation 85 VBG Base Excess 6 H Sodium 139 Potassium 4.5 Chloride 103 Carbon Dioxide 31.7 Anion Gap 4.3 BUN 43 H Creatinine 1.1 Est GFR (CKD-EPI 2020) 70.88 Glucose 117 H Calcium 8.9 Magnesium 2.1 Total Bilirubin 0.4 AST 25 ALT 55 Alkaline Phosphatase 90 Troponin I 10 NT-Pro-B Natriuret Pep 968 H Total Protein 8.0 Albumin 2.4 L TSH 0.38 Urine Color Urine Clarity Urine pH Ur Specific [place] Urine Protein Urine Ketones Urine Blood Urine Nitrite Urine Bilirubin Urine Urobilinogen Ur Leukocyte Esterase Urine RBC Urine WBC Ur Epithelial Cells Urine Crystals Urine Bacteria Urine Casts Urine Mucus Ur Culture Indicated? Urine Glucose Urine Opiates Screen Urine Methadone Screen Ur Barbiturates Screen Ur Tricyclics Screen Ur Amphetamines Screen U Benzodiazepines Scrn Urine Cocaine Screen Ur THC Screen Ethyl Alcohol COVID-19 Source Nasopharynx SARS-CoV-2 (PCR) Negative Influenza Type A (PCR) Negative Influenza Type B (PCR) Negative RSV (PCR) Negative 09/29/25 09/29/25 09/29/25 16:56 18:36 19:50 WBC RBC Hgb Hct MCV MCH MCHC RDW Plt Count MPV Immature Gran % Neutrophils % Lymphocytes % Monocytes % Eosinophils % Basophils % Nucleated RBC % Absolute Neutrophils Absolute Lymphocytes Absolute Monocytes Absolute Eosinophils Absolute Basophils PT INR VBG pH VBG pCO2 VBG pO2 VBG HCO3 VBG Total CO2 VBG O2 Saturation VBG Base Excess Sodium Potassium Chloride Carbon Dioxide Anion Gap BUN Creatinine Est GFR (CKD-EPI 2020) Glucose Calcium Magnesium Total Bilirubin AST ALT Alkaline Phosphatase Troponin I 10 NT-Pro-B Natriuret Pep Total Protein Albumin TSH Urine Color Yellow Urine Clarity Clear Urine pH 7.0 Ur Specific [place] 1.010 Urine Protein Trace Urine Ketones Negative Urine Blood Small H Urine Nitrite Negative Urine Bilirubin Negative Urine Urobilinogen 0.2 Ur Leukocyte Esterase Negative Urine RBC 10-20 H Urine WBC Negative Ur Epithelial Cells Rare Urine Crystals Negative Urine Bacteria Rare Urine Casts Negative Urine Mucus Negative Ur Culture Indicated? No Urine Glucose Negative Urine Opiates Screen Urine Methadone Screen Ur Barbiturates Screen Ur Tricyclics Screen Ur Amphetamines Screen U Benzodiazepines Scrn Urine Cocaine Screen Ur THC Screen Ethyl Alcohol < 3.0 COVID-19 Source SARS-CoV-2 (PCR) Influenza Type A (PCR) Influenza Type B (PCR) RSV (PCR) 09/29/25 09/29/25 09/30/25 20:42 22:16 06:16 WBC 6.96 RBC 3.13 L Hgb 10.2 L Hct 31.5 L MCV 101 H MCH 32.6 MCHC 32.4 RDW 12.3 Plt Count 206 MPV 11.2 H Immature Gran % Neutrophils % Lymphocytes % Monocytes % Eosinophils % Basophils % Nucleated RBC % Absolute Neutrophils Absolute Lymphocytes Absolute Monocytes Absolute Eosinophils Absolute Basophils PT INR VBG pH VBG pCO2 VBG pO2 VBG HCO3 VBG Total CO2 VBG O2 Saturation VBG Base Excess Sodium 140 Potassium 4.4 Chloride 101 Carbon Dioxide 28.0 Anion Gap 11.0 BUN 46 H Creatinine 1.2 Est GFR (CKD-EPI 2020) 63.85 Glucose 129 H Calcium 9.6 Magnesium 2.3 Total Bilirubin 0.4 AST 26 ALT 45 Alkaline Phosphatase 89 Troponin I 8 NT-Pro-B Natriuret Pep Total Protein 8.1 Albumin 2.2 L TSH Urine Color Urine Clarity Urine pH Ur Specific [place] Urine Protein Urine Ketones Urine Blood Urine Nitrite Urine Bilirubin Urine Urobilinogen Ur Leukocyte Esterase Urine RBC Urine WBC Ur Epithelial Cells Urine Crystals Urine Bacteria Urine Casts Urine Mucus Ur Culture Indicated? Urine Glucose Urine Opiates Screen Positive A Urine Methadone Screen Negative Ur Barbiturates Screen Negative Ur Tricyclics Screen Negative Ur Amphetamines Screen Negative U Benzodiazepines Scrn Negative Urine Cocaine Screen Negative Ur THC Screen Negative Ethyl Alcohol COVID-19 Source SARS-CoV-2 (PCR) Influenza Type A (PCR) Influenza Type B (PCR) RSV (PCR) 10/01/25 06:14 WBC 8.84 RBC 2.91 L Hgb 9.5 L Hct 29.0 L MCV 100 H MCH 32.6 MCHC 32.8 RDW 12.4 Plt Count 208 MPV 10.7 Immature Gran % Neutrophils % Lymphocytes % Monocytes % Eosinophils % Basophils % Nucleated RBC % Absolute Neutrophils Absolute Lymphocytes Absolute Monocytes Absolute Eosinophils Absolute Basophils PT INR VBG pH VBG pCO2 VBG pO2 VBG HCO3 VBG Total CO2 VBG O2 Saturation VBG Base Excess Sodium 143 Potassium 4.4 Chloride 104 Carbon Dioxide 31.1 Anion Gap 7.9 BUN 62 H Creatinine 1.3 Est GFR (CKD-EPI 2020) 58.01 Glucose 119 H Calcium 9.1 Magnesium 2.2 Total Bilirubin 0.3 AST 36 ALT 58 Alkaline Phosphatase 84 Troponin I NT-Pro-B Natriuret Pep Total Protein 7.5 Albumin 2.2 L TSH Urine Color Urine Clarity Urine pH Ur Specific [place] Urine Protein Urine Ketones Urine Blood Urine Nitrite Urine Bilirubin Urine Urobilinogen Ur Leukocyte Esterase Urine RBC Urine WBC Ur Epithelial Cells Urine Crystals Urine Bacteria Urine Casts Urine Mucus Ur Culture Indicated? Urine Glucose Urine Opiates Screen Urine Methadone Screen Ur Barbiturates Screen Ur Tricyclics Screen Ur Amphetamines Screen U Benzodiazepines Scrn Urine Cocaine Screen Ur THC Screen Ethyl Alcohol COVID-19 Source SARS-CoV-2 (PCR) Influenza Type A (PCR) Influenza Type B (PCR) RSV (PCR) Preliminary micro results at discharge 09/29/25 15:45 Blood Blood Culture - Preliminary NO GROWTH 24 HOURS 09/29/25 15:46 Blood Blood Culture - Preliminary NO GROWTH 24 HOURS PFSH All Active Problems (Updated 09/30/25 @ 07:33 by Karl Zeng) Esophageal mass (Chronic) COPD exacerbation (Acute) Esophageal mass (Acute) Airway compromise (Acute) Dizziness of unknown cause (Acute) Left carotid stenosis (Acute) Left carotid stenosis (Chronic) CKD (chronic kidney disease) stage 3, GFR 30-59 ml/min (Chronic) Esophageal mass (Chronic) Oropharyngeal dysphagia (Acute) Serum creatinine raised (Acute) Atrial tachycardia (Acute) History of hypotension (Acute) Dysphagia (Acute) Pruritic rash (Acute) Acute kidney injury (Acute) Heart failure (Acute) Nicotine dependence (Acute) Tobacco dependence (Chronic) Heavy drinker (Acute) Alcohol abuse (Chronic) Alcohol dependence (Chronic) Macrocytic anemia (Acute) Metabolic acidosis (Acute) Hyponatremia (Acute) Medical History TIA (transient ischemic attack) Carotid stenosis, bilateral Chronic kidney disease, stage 3b Microscopic hematuria Myocardial infarction Overweight Monoclonal gammopathy Malignant melanoma Pneumonia Social History Smoking/Tobacco Use Status: Current every day Smoking risk assessment performed?: Yes Alcohol Intake: former Drug use: Never Substance use type: does not use Housing: apartment Time Spent with Patient Time Spent with Patient: <45 minutes Time was spent: preparing to see the patient(eg.review tests), obtaining and/or reviewing separately otained hiistory, ordering medications,tests, procedures, referring, communicating with other health transitional care manager, indepentently interpreting results, counseling the patient and care coordination
[2025-10-01] MEDS: predniSONE 20 MG TAB 40 MG NG (10:38)
[2025-10-01 11:45] VITALS: PULSE 88; RESP 16; O2SAT 98
[2025-10-01 11:57] VITALS: PULSE 92
--- NOTE | 2025-10-01 14:13 | CMDISCH_ITS ---
Date of service: 10/01/25 Time of Service: 14:13 LACE Index Scoring Tool Questions: Length of Stay (in days): 2 Was the patient admitted via the E.D.?: Yes Comorbidities: Previous M.I., Cerebrovascular Disease, Congestive Heart Failure, Any Tumor and Liver or Renal Disease E.D. Visits: 3 Answers: Total Score: 13 Risk of Readmission: High Risk Care Management Discharge Plan Reason for Hospitalization: COPD Discharge Plan: Kishan will be discharged home with no new services. He will follow up with his PCP and Oncology team at [facility]. Kishan will follow his plan of care as prescribed and transport with family. Patient/Family Education Needs: Review discharge instructions, limitations, follow up plan and discuss Ask Me Three SDOH Health Related Social Needs: Health related social needs education Health related social needs details living in an apart ment and become a caregiver.
== END 2025-10-01 12:42 | disposition home or self-care (01) ==
LOC: ER 18:00 → MS 09-30 07:14
PROVIDERS: Admitting Provider Family Medicine; Emergency Provider Emergency Medicine; PCP Internal Medicine; Responsible Provider Family Medicine; Visit Provider Family Medicine
DX: J44.1 Chronic obstructive pulmonary disease with (acute) exacerbation (principal); C15.3 Malignant neoplasm of upper third of esophagus; N18.31 Chronic kidney disease, stage 3a; F10.21 Alcohol dependence, in remission; R59.0 Localized enlarged lymph nodes; Z96.89 Presence of other specified functional implants; Z79.899 Other long term (current) drug therapy; Z93.1 Gastrostomy status; I65.22 Occlusion and stenosis of left carotid artery; D53.9 Nutritional anemia, unspecified; Z87.891 Personal history of nicotine dependence
CPT/HCPCS: 00123; 36415; 70491; 80053; 80307; 82805; 85027; 87040; 87637; 93005; 94640; 96365; 96375; 99285; J1650; 71260; 80320; 81003; 81015; 83735; 83880; 84443; 84484; 85025; 85610; 93010; 94760; 99223; 99232; 99238; G0378; J1100; J1956; J2919; J3490; J7512; J7620

== ENCOUNTER 2025-10-03 03:52 | Outpatient (CLI) | payer MEDICARE, MEDICAID, SELFPAY ==
[2025-10-03 08:53] LABS: Abs Immature Grans 0.07 10^3/uL (0.0-0.06); HCT 32.1 % (40.0-50.0); HGB 10.1 g/dL (13.5-17.5); Immature Grans % 1.0 %; MCH 31.9 pg (27.0-33.0); MCHC 31.5 % (32.0-36.0); MCV 101 fL (80-95); MPV 9.9 fL (8.0-11.0); Platelet Count 276 10^3/uL (130-400); RBC 3.17 10^6/uL (4.36-5.78); RDW 12.4 % (11.8-14.1); RDW-SD 46.5 fL; WBC 6.76 10^3/uL (4.4-10.8)
[2025-10-03 09:17] LABS: ALT 130 U/L (16-63); AST 68 U/L (15-37); Albumin 2.5 g/dL (3.4-5.0); Alkaline Phosphatase 93 U/L (46-116); Anion Gap 6.9 mmol/L (3-11); BUN 78 mg/dL (7-18); Bilirubin, Total 0.3 mg/dL (0.2-1.0); CO2 32.1 mmol/L (21.0-32.0); Calcium 9.1 mg/dL (8.5-10.1); Chloride 107 mmol/L (98-107); Glucose 117 mg/dL (74-106); Magnesium 2.1 mg/dL (1.8-2.4); Potassium 4.7 mmol/L (3.5-5.1); Sodium 146 mmol/L (136-145); Total Protein 7.9 g/dL (6.4-8.2)
== END 2025-10-03 03:53 | disposition home or self-care (01) ==
LOC: LBO 03:52
PROVIDERS: PCP Internal Medicine; Visit Provider Internal Medicine Medical Oncology
DX: C15.9 Malignant neoplasm of esophagus, unspecified (principal)
CPT/HCPCS: 36415; 80053; 83735; 85025

== ENCOUNTER 2025-10-10 03:33 | Outpatient (CLI) | payer MEDICARE, MEDICAID, SELFPAY ==
[2025-10-10 08:08] LABS: Abs Immature Grans 0.05 10^3/uL (0.0-0.06); HCT 32.8 % (40.0-50.0); HGB 10.3 g/dL (13.5-17.5); Immature Grans % 0.9 %; MCH 31.7 pg (27.0-33.0); MCHC 31.4 % (32.0-36.0); MCV 101 fL (80-95); MPV 10.0 fL (8.0-11.0); Platelet Count 217 10^3/uL (130-400); RBC 3.25 10^6/uL (4.36-5.78); RDW 12.8 % (11.8-14.1); RDW-SD 46.8 fL; WBC 5.30 10^3/uL (4.4-10.8)
[2025-10-10 08:27] LABS: ALT 48 U/L (16-63); AST 31 U/L (15-37); Albumin 2.2 g/dL (3.4-5.0); Alkaline Phosphatase 79 U/L (46-116); Anion Gap 7.1 mmol/L (3-11); BUN 62 mg/dL (7-18); Bilirubin, Total 0.3 mg/dL (0.2-1.0); CO2 32.9 mmol/L (21.0-32.0); Calcium 8.8 mg/dL (8.5-10.1); Chloride 106 mmol/L (98-107); Glucose 150 mg/dL (74-106); Magnesium 2.1 mg/dL (1.8-2.4); Potassium 4.0 mmol/L (3.5-5.1); Sodium 146 mmol/L (136-145); Total Protein 7.7 g/dL (6.4-8.2)
== END 2025-10-10 03:34 | disposition home or self-care (01) ==
LOC: LBO 03:33
PROVIDERS: PCP Internal Medicine; Visit Provider Internal Medicine Medical Oncology
DX: C15.9 Malignant neoplasm of esophagus, unspecified (principal)
CPT/HCPCS: 36415; 80053; 83735; 85025

== ENCOUNTER 2025-10-17 02:05 | Outpatient (CLI) | payer MEDICARE, MEDICAID, SELFPAY ==
[2025-10-17 09:29] LABS: Abs Immature Grans 0.01 10^3/uL (0.0-0.06); HCT 26.8 % (40.0-50.0); HGB 8.4 g/dL (13.5-17.5); Immature Grans % 0.3 %; MCH 30.9 pg (27.0-33.0); MCHC 31.3 % (32.0-36.0); MCV 99 fL (80-95); MPV 9.6 fL (8.0-11.0); Platelet Count 136 10^3/uL (130-400); RBC 2.72 10^6/uL (4.36-5.78); RDW 13.0 % (11.8-14.1); RDW-SD 46.0 fL; WBC 3.14 10^3/uL (4.4-10.8)
[2025-10-17 09:51] LABS: Magnesium 2.0 mg/dL (1.6-2.6)
[2025-10-17 09:52] LABS: ALT 28 U/L (10-49); AST 31 U/L (<34); Albumin 3.4 g/dL (3.4-5.0); Alkaline Phosphatase 66 U/L (46-116); Anion Gap 7.3 mmol/L (3-11); BUN 41 mg/dL (9-23); Bilirubin, Total 0.20 mg/dL (0.2-1.2); CO2 31.7 mmol/L (20.0-31.0); Calcium 8.6 mg/dL (8.3-10.6); Chloride 102 mmol/L (98-107); Glucose 124 mg/dL (74-106); Potassium 4.1 mmol/L (3.5-5.1); Sodium 141 mmol/L (136-145); Total Protein 6.9 g/dL (5.7-8.2)
[2025-10-17 10:07] LABS: Hypochromasia 1+
== END 2025-10-17 02:06 | disposition home or self-care (01) ==
LOC: LBO 02:05
PROVIDERS: PCP Internal Medicine; Visit Provider Internal Medicine Medical Oncology
DX: C15.9 Malignant neoplasm of esophagus, unspecified (principal)
CPT/HCPCS: 36415; 80053; 83735; 85025

== ENCOUNTER 2025-10-25 09:06 | Inpatient (IN) | payer MEDICARE, MEDICAID, SELFPAY ==
[2025-10-25] VITALS (33 sets, daily range): BP systolic 95–144; BP diastolic 59–89; PULSE 76–121; RESP 14–24; TEMP 37.5–38.3; O2SAT 89–100
--- NOTE | 2025-10-25 08:45 | RT.EKG_ITS ---
APPROVED REPORT Exam: Resting ECG Reason for Exam: SOB Patient Location: E HR:111 bpm ECG Measurements Heart Rate 111 AXIS MD 138 P 80 QRSd 82 QRS 75 QT 309 T 65 QTc 420 Conclusion Sinus tachycardia...rate> 99 Probable left atrial enlargement...P >50mS, <-0.10mV V1 No STEMI
--- NOTE | 2025-10-25 09:01 | W.ED.GENAD ---
Discharge Plan Disposition Patient Disposition: Admit to [facility] Condition: Stable Discharge Details Clinical Impression: Shortness of breath, Esophageal mass Primary Care Provider: Lewis Kelley ED Provider: Keshia Chu Home Meds and New Rx's Prescriptions: No Action aspirin [Adult Aspirin Regimen] 81 mg tablet,delayed release (DR/EC) 81 mg PO DAILY metoprolol succinate 25 mg tablet extended release 24 hr 25 mg PO DAILY folic acid 1 mg tablet 1 mg PO DAILY bupropion HCl [Wellbutrin XL] 150 mg tablet extended release 24 hr 150 mg PO DAILY magnesium oxide 400 mg magnesium tablet 400 mg PO DAILY atorvastatin 40 mg tablet 80 mg PO DAILY Qty: 0 0RF clopidogrel 75 mg Tablet 75 mg PO DAILY Qty: 17 0RF docusate sodium 50 mg/5 mL liquid 5 ml PO DAILY Patient Comments: TAKE 5 ML BY MOUTH EVERY DAY FOR CONSTIPATION, MAY INCREASE TO 10ML DAILY NEEDED prochlorperazine maleate 10 mg tablet 10 mg PO Q6H PRN Patient Comments: TAKE ONE TABLET BY MOUTH EVERY 6 HOURS NEEDED FOR NAUSEA prochlorperazine 25 mg suppository 25 mg DE Q12H Patient Comments: INSERT ONE SUPPOSITORY RECTALLY EVERY 12 HOURS NEEDED FOR NAUSEA ipratropium-albuterol 0.5 mg-3 mg(2.5 mg base)/3 mL Solution For Nebulization 3 ml UPD Q6H Qty: 48 1RF HPI General Mode of arrival: EMS. Date/Time Provider Initiated Documentation: 10/25/25 09:57. Limitations to Documentation: physical limitation. Information obtained by: patient, EMS, RN notes reviewed and old records reviewed. HPI Narrative: 75-year-old male presents to the ER from the cancer center with a chief complaint of shortness of breath for the last 4 days. Does have a history of esophageal cancer, malignant melanoma and has had increased work of breathing. He had a stent placed in his esophagus approximately 1 month ago and has a G-tube. He reports that he has been coughing with productive sputum. He does have some labored breathing upon arrival. Diminished lung sounds bilaterally. Other past medical history includes tobacco dependence, TIA, alcohol dependence, carotid stenosis chronic kidney disease, [place], pneumonia. Related Data Home Medications ?Medication ?Instructions ?Recorded ?Confirmed aspirin 81 mg tablet,delayed 81 mg PO DAILY 06/01/24 09/29/25 release (Adult Aspirin Regimen) metoprolol succinate 25 mg 25 mg PO DAILY 06/01/24 09/29/25 tablet,extended release 24 hr bupropion HCl 150 mg 24 hr tablet, 150 mg PO DAILY 05/20/25 09/29/25 extended release (Wellbutrin XL) folic acid 1 mg tablet 1 mg PO DAILY 05/20/25 09/29/25 magnesium oxide 400 mg PO DAILY 05/20/25 09/29/25 atorvastatin 40 mg tablet 80 mg (2 x 40 mg) PO DAILY #0 tabs 06/18/25 09/29/25 clopidogrel 75 mg tablet 75 mg PO DAILY #17 tabs 06/18/25 09/29/25 docusate sodium 50 mg/5 mL oral 5 ml PO DAILY 09/19/25 09/29/25 liquid prochlorperazine 25 mg rectal 25 mg DE Q12H 09/19/25 09/29/25 suppository prochlorperazine maleate 10 mg 10 mg PO Q6H PRN 09/19/25 09/29/25 tablet ipratropium 0.5 mg-albuterol 3 mg 3 ml UPD Q6H #48 mL 10/01/25 (2.5 mg base)/3 mL nebulization soln Previous Rx's ?Medication ?Instructions ?Recorded atorvastatin 40 mg tablet 80 mg (2 x 40 mg) PO DAILY #0 tabs 06/18/25 clopidogrel 75 mg tablet 75 mg PO DAILY #17 tabs 06/18/25 ipratropium 0.5 mg-albuterol 3 mg 3 ml UPD Q6H #48 mL 10/01/25 (2.5 mg base)/3 mL nebulization soln Allergies Allergy/AdvReac Type Severity Reaction Status Date / Time cefdinir Allergy Skin Rash Verified 09/29/25 15:14 General Stated Complaint: RespSymp BIGG: 2 Review of Systems Cardiovascular Cardiovascular: Reports dyspnea Respiratory Respiratory: Reports cough, Reports excessive phlegm production and Reports dyspnea Exam Narrative Exam Narrative: Constitutional: Alert and oriented x3. Appears stated age. Normal body habitus. Appears chronically ill, cachectic. Increased work of breathing noted. Head: Normocephalic, no trauma. Eyes: Pupils PERRL, Red reflex noted, EOM's intact. Eyelids symmetrical without lesions, discharge, or swelling. ENT: Patient has a history of esophageal cancer does not take any p.o., unable to swallow does spit saliva into a canister. Chest: Tachycardic upon arrival, normal S1, S2, distal pulses intact. Resp: Lungs diminished to auscultation bilaterally, has intermittent stridor noted with breathing and productive cough Abdomen: Soft, non-distended, Normoactive bowel sounds all 4 quads. Has a G-tube noted Skin: No suspicious rashes or lesions. Capillary refill less than 2 sec. Neurologic: Cranial nerves II-XII intact. Alert and oriented x 3. Motor: No deficits noted. Sensory: Intact bilaterally all 4 extremities. Hematologic/Lymphatic: No ecchymosis, no lymphadenopathy. Course Vital Signs Vital signs: Vital Signs Pulse 121 H 10/25/25 08:53 Respiratory Rate 22 10/25/25 08:53 Blood Pressure 143/89 H 10/25/25 08:53 Pulse Oximetry 97 10/25/25 08:53 Pulse 121 H 10/25/25 08:53 Respiratory Rate 22 10/25/25 08:53 Blood Pressure 143/89 H 10/25/25 08:53 Pulse Oximetry 97 10/25/25 08:53 Oxygen Delivery Method Room Air 10/25/25 08:53 Oxygen Flow Rate 0 10/25/25 08:53 Medical Decision Making 75-year-old male presents to the ER from the cancer center with a chief complaint of shortness of breath for the last 4 days. Does have a history of esophageal cancer, malignant melanoma and has had increased work of breathing. He had a stent placed in his esophagus approximately 1 month ago and has a G-tube. He reports that he has been coughing with productive sputum. He does have some labored breathing upon arrival. Diminished lung sounds bilaterally. Other past medical history includes tobacco dependence, TIA, alcohol dependence, carotid stenosis chronic kidney disease, [place], pneumonia. Cardiac workup ordered including serial troponins, proBNP and 25 mg of Solu-Medrol and a DuoNeb. At this time patient is tachycardic with a pulse of 121 O2 sat is 97% on room air. 1156: [facility] [place] for consultation. 1231: Spoke with Dr. Bal Gonzales with pulmonology who recommends patient transfer for rigid bronchoscopy awaiting capacity [place] [facility]. 1305: Dr. Begum Hospitalist regarding patient she recommends treating for possible aspiration pneumonia with Unasyn however, patient has a cross sensitivity to a cefdinir allergy. Doxycycline ordered. She also recommends increasing the free water and his G-tube feedings and cough suppressant if he is having hemoptysis from the irritation from the cough. She reports that maybe this would be appropriate for her down and back procedure versus a transfer. Per transfer center the procedure would occur tomorrow. She will call me back after conferring with [employer]. 1346: Spoke with health care recruiter at [facility] once again who recommends a CT neck and chest without contrast to eval the tracheal stent. Dr. Begum is the accepting physician for transfer. Awaiting bed placement. 1358: Patient febrile temp 38.3, 1 gm Acetaminophen ordered IVPB. Informed patient of plan of care for transfer to [facility] he verbalized understanding. 1454: Transfer center does not expect a bed available until tomorrow, will contact hospitalist to see about over night admission. 1502: Spoke with hospitalist Dr. Villegas who agrees to accept patient for admission until bed available at [facility] [place] likely tomorrow. This text was generated using [employer] dictation system, please disregard any oddities of phrase or misspellings. HR 87, 95% RA Pending transport up to floor for admission. This text was generated using [employer] dictation system, please disregard any oddities of phrase or misspellings. Medical Records Medical records reviewed: Yes I reviewed the patient's medical records. Imaging Data Radiologic Study: Imaging: CT Scan Radiologist's impression: CONTRAST MATERIAL: Noncontrast COMPARISON: CT CT NECK CHEST W from 09/29/2025 FINDINGS: Neck: Esophagus: Upper esophageal mass again noted appears stable. No patent lumen. Mass extension around the trachea above the level of the vocal cords and involving the thyroid. There is some in invasion of the cricoid cartilage. Trachea: Tracheal stent again noted. No evidence of surrounding abscess or narrowing of the stent. Parotids/submandibular glands: Normal. Thyroid: The esophageal mass appears to invade the medial aspect of the right lobe of the thyroid in extend anteriorly into the soft tissues. The findings appear roughly stable from prior. Lymphadenopathy: There has been interval decrease in size of the previously noted right supraclavicular lymph node, now measuring 2.2 x 1.9 compared with 3.0 x 2.7 cm. The jugular vein is not as well seen due to lack of IV contrast but again appears compressed. Carotids: Calcification and plaque at the common carotid bulbs and proximal internal carotid arteries. Bones: Advanced degenerative changes. No fracture. No lytic or blastic lesions. Chest: Tracheobronchial tree: Upper tracheal stent is patent. No areas of tracheal narrowing or mucous plugging. Mediastinum and Martha: No dominant adenopathy. The upper esophageal mass not well delineated without IV contrast. The saphenous appears some fluid filled below this level. Pulmonary parenchyma: No consolidation. Interval increase in size of left lower lobe nodule mass now measuring 12 x 10 millimeters. Nodule at the medial left costophrenic angle measures 7 millimeters. Posterior left lower lobe nodule measures 6 millimeters. A few small nodules are noted at the right lung base, measuring 5 millimeters or less. There is a lateral left upper lobe nodule measuring 5 millimeters. Emphysematous changes. Pleura: No effusion or pneumothorax. Heart/Aorta: Thoracic aorta non-dilated. The heart is not dilated. Mild coronary artery calcifications are seen. Pulmonary arteries: No evidence of emboli. Bones: No fracture. No lytic or blastic lesions. ABDOMEN: Liver: Normal density. No measurable mass. Gallbladder and biliary tract: Cholelithiasis. No biliary dilation. Pancreas: Normal density, no abnormal calcifications or inflammatory process. Spleen: Normal. Kidneys: Normal size, contour and axis. No radiodense stones or obstructive uropathy. No suspicious masses seen. Adrenal glands: No masses seen. Abdominal Aorta: Abdominal portion non-dilated. Bowel: Peg tube appears in good position. IMPRESSION: The tracheal stent appears intact, without narrowing. The upper esophageal mass is not well delineated without IV contrast but is roughly stable in size. Decreased size of right supraclavicular lymph node. Significant interval enlargement of pulmonary nodules as well as new nodules, greater at the at the at the at the lung bases. Lab Data Lab results reviewed: Yes I reviewed the patient's lab results. Labs: Laboratory Tests Range/Units 10/25/25 10/25/25 10/25/25 09:05 09:57 10:15 WBC (4.4-10.8) 10^3/uL 2.07 L RBC (4.36-5.78) 10^6/uL 2.59 L Hgb (13.5-17.5) g/dL 8.1 L Hct (40.0-50.0) % 25.4 L MCV (80-95) fL 98 H MCH (27.0-33.0) pg 31.3 MCHC (32.0-36.0) % 31.9 L RDW (11.8-14.1) % 14.0 Plt Count (130-400) 10^3/uL 275 MPV (8.0-11.0) fL 9.1 Immature Gran % % 0.0 Neutrophils % % 45.0 Band Neutrophils % % 9 Lymphocytes % % 26.0 Monocytes % % 18.0 Eosinophils % % 0.0 Basophils % % 1.0 Metamyelocytes % 1 Nucleated RBC % (0.0-0.3) % 3.0 H Absolute Neutrophils (1.2-6.7) 10^3/uL 1.12 L Absolute Lymphocytes (1.2-3.4) 10^3/uL 0.54 L Absolute Monocytes (0.1-0.8) 10^3/uL 0.37 Absolute Eosinophils (0.0-0.7) 10^3/uL 0.00 Absolute Basophils (0.0-0.2) 10^3/uL 0.02 RBC Morphology See Below Polychromasia Present Hypochromasia 1+ Anisocytosis 1+ Macrocytosis 1+ PT (9.1-11.1) sec 11.4 H INR (0.9-1.1) 1.1 VBG pH (7.31-7.41) 7.37 VBG pCO2 (41-51) mmHg 54 H VBG pO2 mmHg 30 VBG HCO3 (23-28) mmol/L 31 H VBG Total CO2 (24-29) mmol/L 33 H VBG O2 Saturation % 53 VBG Base Excess (-2-3) mmol/L 6 H Sodium (136-145) mmol/L 143 Potassium (3.5-5.1) mmol/L 4.3 Chloride (98-107) mmol/L 102 Carbon Dioxide (20.0-31.0) mmol/L 31.5 H Anion Gap (3-11) mmol/L 9.5 BUN (9-23) mg/dL 47 H Creatinine (0.73-1.18) mg/dL 1.20 H Est GFR (CKD-EPI 2020) (mL/min/1.73m2) 59.34 Glucose (74-106) mg/dL 122 H Calcium (8.3-10.6) mg/dL 8.9 Magnesium (1.6-2.6) mg/dL 1.9 Total Bilirubin (0.2-1.2) mg/dL 0.30 AST (<34) U/L 64 H ALT (10-49) U/L 60 H Alkaline Phosphatase (46-116) U/L 121 H Troponin I (<54) ng/L 9 10 NT-Pro-B Natriuret Pep (<300) pg/mL 896 H Total Protein (5.7-8.2) g/dL 7.4 Albumin (3.4-5.0) g/dL 3.6 Ethyl Alcohol (<3) mg/dL < 3.0 Add-On Test Request DONE Range/Units 10/25/25 11:59 WBC (4.4-10.8) 10^3/uL RBC (4.36-5.78) 10^6/uL Hgb (13.5-17.5) g/dL Hct (40.0-50.0) % MCV (80-95) fL MCH (27.0-33.0) pg MCHC (32.0-36.0) % RDW (11.8-14.1) % Plt Count (130-400) 10^3/uL MPV (8.0-11.0) fL Immature Gran % % Neutrophils % % Band Neutrophils % % Lymphocytes % % Monocytes % % Eosinophils % % Basophils % % Metamyelocytes % Nucleated RBC % (0.0-0.3) % Absolute Neutrophils (1.2-6.7) 10^3/uL Absolute Lymphocytes (1.2-3.4) 10^3/uL Absolute Monocytes (0.1-0.8) 10^3/uL Absolute Eosinophils (0.0-0.7) 10^3/uL Absolute Basophils (0.0-0.2) 10^3/uL RBC Morphology Polychromasia Hypochromasia Anisocytosis Macrocytosis PT (9.1-11.1) sec INR (0.9-1.1) VBG pH (7.31-7.41) VBG pCO2 (41-51) mmHg VBG pO2 mmHg VBG HCO3 (23-28) mmol/L VBG Total CO2 (24-29) mmol/L VBG O2 Saturation % VBG Base Excess (-2-3) mmol/L Sodium (136-145) mmol/L Potassium (3.5-5.1) mmol/L Chloride (98-107) mmol/L Carbon Dioxide (20.0-31.0) mmol/L Anion Gap (3-11) mmol/L BUN (9-23) mg/dL Creatinine (0.73-1.18) mg/dL Est GFR (CKD-EPI 2020) (mL/min/1.73m2) Glucose (74-106) mg/dL Calcium (8.3-10.6) mg/dL Magnesium (1.6-2.6) mg/dL Total Bilirubin (0.2-1.2) mg/dL AST (<34) U/L ALT (10-49) U/L Alkaline Phosphatase (46-116) U/L Troponin I (<54) ng/L Cancelled NT-Pro-B Natriuret Pep (<300) pg/mL Total Protein (5.7-8.2) g/dL Albumin (3.4-5.0) g/dL Ethyl Alcohol (<3) mg/dL Add-On Test Request Quality:SDOH Health Related Social Needs: Health related social needs education Health related social needs details living in an apartment and become a caregiver. PFSH All Active Problems (Updated 10/25/25 @ 15:05 by Keshia Chu NP) Shortness of breath (Acute) Esophageal mass (Chronic) COPD exacerbation (Acute) Esophageal mass (Acute) Airway compromise (Acute) Dizziness of unknown cause (Acute) Left carotid stenosis (Acute) Left carotid stenosis (Chronic) CKD (chronic kidney disease) stage 3, GFR 30-59 ml/min (Chronic) Esophageal mass (Chronic) Oropharyngeal dysphagia (Acute) Serum creatinine raised (Acute) Atrial tachycardia (Acute) History of hypotension (Acute) Dysphagia (Acute) Pruritic rash (Acute) Acute kidney injury (Acute) Heart failure (Acute) Nicotine dependence (Acute) Heavy drinker (Acute) Alcohol abuse (Chronic) Macrocytic anemia (Acute) Metabolic acidosis (Acute) Hyponatremia (Acute) Medical History Tobacco dependence Alcohol dependence TIA (transient ischemic attack) Carotid stenosis, bilateral Chronic kidney disease, stage 3b Microscopic hematuria Myocardial infarction Overweight Monoclonal gammopathy Malignant melanoma Pneumonia Social History Smoking/Tobacco Use Status: Current every day Smoking risk assessment performed?: Yes Alcohol Intake: former Drug use: Never Substance use type: does not use Housing: apartment
[2025-10-25 09:18] LABS: Abs Immature Grans 0.02 10^3/uL (0.0-0.06); HCT 25.4 % (40.0-50.0); HGB 8.1 g/dL (13.5-17.5); MCH 31.3 pg (27.0-33.0); MCHC 31.9 % (32.0-36.0); MCV 98 fL (80-95); MPV 9.1 fL (8.0-11.0); Platelet Count 275 10^3/uL (130-400); RBC 2.59 10^6/uL (4.36-5.78); RDW 14.0 % (11.8-14.1); RDW-SD 47.9 fL; WBC 2.07 10^3/uL (4.4-10.8)
[2025-10-25 09:22] LABS: BE (Venous) 6 mmol/L (-2-3); HCO3 (Venous) 31 mmol/L (23-28); O2 Sat (Venous) 53 %; TCO2 (Venous) 33 mmol/L (24-29); pCO2 (Venous) 54 mmHg (41-51); pO2 (Venous) 30 mmHg
[2025-10-25 09:39] LABS: INR 1.1 (0.9-1.1); Prothrombin Time 11.4 sec (9.1-11.1)
[2025-10-25 09:41] LABS: Magnesium 1.9 mg/dL (1.6-2.6)
[2025-10-25 09:43] LABS: ALT 60 U/L (10-49); AST 64 U/L (<34); Albumin 3.6 g/dL (3.4-5.0); Alkaline Phosphatase 121 U/L (46-116); Anion Gap 9.5 mmol/L (3-11); BUN 47 mg/dL (9-23); Bilirubin, Total 0.30 mg/dL (0.2-1.2); CO2 31.5 mmol/L (20.0-31.0); Calcium 8.9 mg/dL (8.3-10.6); Chloride 102 mmol/L (98-107); Glucose 122 mg/dL (74-106); Potassium 4.3 mmol/L (3.5-5.1); Sodium 143 mmol/L (136-145); Total Protein 7.4 g/dL (5.7-8.2); Troponin I 9 ng/L (<54)
[2025-10-25 10:17] LABS: Immature Grans % 0.0 %
[2025-10-25 10:18] LABS: Anisocytosis 1+; Hypochromasia 1+; Macrocytosis 1+; Polychromasia Present
[2025-10-25 10:22] LABS: Lab Add On Test DONE
[2025-10-25 10:40] LABS: Troponin I 10 ng/L (<54)
--- NOTE | 2025-10-25 10:47 | DI.RAD_ITS ---
Exam(s) XR CHEST 2V PA LATERAL EXAM: XR CHEST 2V PA LATERAL CLINICAL HISTORY: SOB TECHNIQUE: 2D digital imaging was performed of the chest. Two images were obtained. PA and lateral views were obtained. COMPARISON: CR XR CHEST 2V PA LATERAL from 06/09/[address] NECK CHEST W from 09/29/2025 FINDINGS: MEDIASTINUM: Normal. HEART: Normal. PULMONARY VASCULATURE: Normal. LUNGS: There is a tracheal stent in place. The lungs are hyperinflated consistent with underlying COPD. There are no focal consolidating infiltrates present. PLEURAL SPACE: No pleural effusion or pneumothorax. BONE:Within normal limits for the patient's age. OTHER FINDINGS:Normal. IMPRESSION: No acute pulmonary findings. DATA REPOSITORY: RADIATION DOSE DELIVERED:
[2025-10-25] MEDS: Normal Saline 500 ML 250 ML IV (11:30)
[2025-10-25] MEDS: Albuterol/Ipratropium 3 ML UPD VIAL UPD (12:14)
[2025-10-25] MEDS: methylPREDNISolone SUCC 125 MG VIAL IVP (12:14)
[2025-10-25] MEDS: DOXYCYCLINE 100 MG in Normal Saline 100 ML IVPB (14:45)
[2025-10-25] MEDS: ACETAMINOPHEN 1,000 MG/100 ML BAG 400 MG IVPB (14:45)
--- NOTE | 2025-10-25 15:06 | DI.CT_ITS ---
Exam(s) CT NECK CHEST WO EXAM: CT NECK CHEST WO CLINICAL HISTORY: SOB Trachea stent TECHNIQUE: Imaging Protocol: Axial computed tomography images with coronal and sagittal reformatted images were created and reviewed. Computer aided detection (CAD) was utilized. CONTRAST MATERIAL: Noncontrast COMPARISON: CT CT NECK CHEST W from 09/29/2025 FINDINGS: Neck: Esophagus: Upper esophageal mass again noted appears stable. No patent lumen. Mass extension around the trachea above the level of the vocal cords and involving the thyroid. There is some in invasion of the cricoid cartilage. Trachea: Tracheal stent again noted. No evidence of surrounding abscess or narrowing of the stent. Parotids/submandibular glands: Normal. Thyroid: The esophageal mass appears to invade the medial aspect of the right lobe of the thyroid in extend anteriorly into the soft tissues. The findings appear roughly stable from prior. Lymphadenopathy: There has been interval decrease in size of the previously noted right supraclavicular lymph node, now measuring 2.2 x 1.9 compared with 3.0 x 2.7 cm. The jugular vein is not as well seen due to lack of IV contrast but again appears compressed. Carotids: Calcification and plaque at the common carotid bulbs and proximal internal carotid arteries. Bones: Advanced degenerative changes. No fracture. No lytic or blastic lesions. Chest: Tracheobronchial tree: Upper tracheal stent is patent. No areas of tracheal narrowing or mucous plugging. Mediastinum and Martha: No dominant adenopathy. The upper esophageal mass not well delineated without IV contrast. The saphenous appears some fluid filled below this level. Pulmonary parenchyma: No consolidation. Interval increase in size of left lower lobe nodule mass now measuring 12 x 10 millimeters. Nodule at the medial left costophrenic angle measures 7 millimeters. Posterior left lower lobe nodule measures 6 millimeters. A few small nodules are noted at the right lung base, measuring 5 millimeters or less. There is a lateral left upper lobe nodule measuring 5 millimeters. Emphysematous changes. Pleura: No effusion or pneumothorax. Heart/Aorta: Thoracic aorta non-dilated. The heart is not dilated. Mild coronary artery calcifications are seen. Pulmonary arteries: No evidence of emboli. Bones: No fracture. No lytic or blastic lesions. ABDOMEN: Liver: Normal density. No measurable mass. Gallbladder and biliary tract: Cholelithiasis. No biliary dilation. Pancreas: Normal density, no abnormal calcifications or inflammatory process. Spleen: Normal. Kidneys: Normal size, contour and axis. No radiodense stones or obstructive uropathy. No suspicious masses seen. Adrenal glands: No masses seen. Abdominal Aorta: Abdominal portion non-dilated. Bowel: Peg tube appears in good position. IMPRESSION: The tracheal stent appears intact, without narrowing. The upper esophageal mass is not well delineated without IV contrast but is roughly stable in size. Decreased size of right supraclavicular lymph node. Significant interval enlargement of pulmonary nodules as well as new nodules, greater at the at the at the at the lung bases. RADIATION DOSE DELIVERED: Total DLP DATA REPOSITORY: All CT scans at this facility are submitted to the National Radiology Data Registry (NRDR) Dose Index Registry (DIR) with the [employer] ([employer]). RADIATION OPTIMIZATION: All CT scans at this facility use at least one of these dose optimization techniques: automated exposure control; mA and/or kV adjustment per patient size (includes targeted exams where dose is matched to clinical indication); or iterative reconstruction.
--- NOTE | 2025-10-25 15:46 | W.PM.HP.N ---
Date of service: 10/25/25 Time of Service: 15:00 Assessment and Plan Assessment and plan (1) Aspiration pneumonia due to saliva: Status: Acute Assessment and plan: Presumptive aspiration pneumonia Holding patient's reported bactrim for PJP PPX Steroids and doxycycline given in ED, discontinued Starting unasyn SpO2 monitoring Continuous suctioning Anticipate [facility] transfer in the morning ICU admission for q1h monitoring due to suctioning / aspiration risk (2) Esophageal mass: Status: Chronic Assessment and plan: Actively in treatment for esophageal malignancy Trachea occluded by mass, stent placed approximately mid-August at [facility] Patient wants to continue treatment and live as long as possible However, he understands that CPR could dislodge the stent and the mass could further obstruct his airway He also understands that intubation with the stent in place may have the same risks He wants medical staff to *try* to resuscitate him should his heart or airway fail (3) Macrocytic anemia: Status: Acute Assessment and plan: Due to cancer treatment (4) CKD (chronic kidney disease) stage 3, GFR 30-59 ml/min: Status: Chronic Assessment and plan: Monitor (5) Neutropenia due to irradiation: Status: Acute Assessment and plan: Afebrile at this time, vitals q4h ANC above 500 Antibiotics for aspiration pneumonia, broaden and isolate if he develops fever History of Present Illness History of Present Illness Chief Complaint: Shortness of breath Narrative: Lewis Fong is a 75 year old man presenting October 25, sent in from oncology clinic for shortness of breath which has been worsening over 4 days. He is in treatment for esophageal cancer, with a large mass and tracheal stent placed one month prior to arrival. He wants to continue oncology treatment and get as much more life as he can. He is coughing up sputum continuously and is doing his own suctioning. He is not able to manage PO intake and has a functioning PEG tube in place. He reports that he has a nephew who lives nearby, and adult children in [place] and elsewhere. He denies pain, no N/V/D. He is hungry. In the ED he was found to be tachycardic 121 with elevated BP 143/89. Vitals otherwise unremarkable and satting 97% on room air. EKG with tachycardia, no occlusive pattern. Neutropenia with ANC 1120. Anemia with hemoglobin 8.1, elevated MCV 98. Chemistries with elevated CO2 31.5, mildly elevated creatinine 1.2 with baseline 1.1, mild transaminitis, elevated BNP 896. Troponins negative. CXR showing tracheal stent and hyperinflacted lungs, no infiltrates. CT neck and chest showing upper esophageal mass appearing no larger than prior imaging, significant enlargement of pulmonary nodules. He was given solumedrol, doxycycline, fluids and bronchodilator treatment. [facility] pulmonology was consulted and accepted the patient for transfer pending bed availability. PMH includes esophageal cancer, malignant melanoma, tobacco dependence, CAD, HLD PFSH All Active Problems (Updated 10/25/25 @ 18:19 by Akbar Villegas MD) Neutropenia due to irradiation (Acute) Aspiration pneumonia due to saliva (Acute) Shortness of breath (Acute) Esophageal mass (Chronic) COPD exacerbation (Acute) Esophageal mass (Acute) Airway compromise (Acute) Dizziness of unknown cause (Acute) Left carotid stenosis (Acute) Left carotid stenosis (Chronic) CKD (chronic kidney disease) stage 3, GFR 30-59 ml/min (Chronic) Esophageal mass (Chronic) Oropharyngeal dysphagia (Acute) Serum creatinine raised (Acute) Atrial tachycardia (Acute) History of hypotension (Acute) Dysphagia (Acute) Pruritic rash (Acute) Acute kidney injury (Acute) Heart failure (Acute) Nicotine dependence (Acute) Heavy drinker (Acute) Alcohol abuse (Chronic) Macrocytic anemia (Acute) Metabolic acidosis (Acute) Hyponatremia (Acute) Medical History Tobacco dependence Alcohol dependence TIA (transient ischemic attack) Carotid stenosis, bilateral Chronic kidney disease, stage 3b Microscopic hematuria Myocardial infarction Overweight Monoclonal gammopathy Malignant melanoma Pneumonia Social History Smoking/Tobacco Use Status: Current every day Smoking risk assessment performed?: Yes Alcohol Intake: former Drug use: Never Substance use type: does not use Housing: apartment Meds Allergies and Home Medications Allergies Allergy/AdvReac Type Severity Reaction Status Date / Time cefdinir Allergy Skin Rash Verified 09/29/25 15:14 Home Medications ?Medication ?Instructions ?Recorded ?Confirmed ?Type aspirin 81 mg tablet,delayed 81 mg PO DAILY 06/01/24 10/25/25 History release (Adult Aspirin Regimen) metoprolol succinate 25 mg 25 mg PO DAILY 06/01/24 10/25/25 History tablet,extended release 24 hr bupropion HCl 150 mg 24 hr tablet, 150 mg PO DAILY 05/20/25 10/25/25 History extended release (Wellbutrin XL) folic acid 1 mg tablet 1 mg PO DAILY 05/20/25 10/25/25 History magnesium oxide 400 mg PO DAILY 05/20/25 10/25/25 History atorvastatin 40 mg tablet 80 mg (2 x 40 mg) PO DAILY #0 tabs 06/18/25 10/25/25 Rx clopidogrel 75 mg tablet 75 mg PO DAILY #17 tabs 06/18/25 10/25/25 Rx docusate sodium 50 mg/5 mL oral 5 ml PO DAILY 09/19/25 10/25/25 History liquid prochlorperazine 25 mg rectal 25 mg CO Q12H 09/19/25 10/25/25 History suppository prochlorperazine maleate 10 mg 10 mg PO Q6H PRN 09/19/25 10/25/25 History tablet ipratropium 0.5 mg-albuterol 3 mg 3 ml UPD Q6H #48 mL 10/01/25 10/25/25 Rx (2.5 mg base)/3 mL nebulization soln Exam Narrative Exam Narrative: General: This is a cachectic, chronically ill-appearing man in mild distress due to secretions HEENT: Normocephalic, atraumati CV: RRR Resp: Diminished breath sounds bilaterally, some stridor on inspiration, productive cough, increased work of breathing Abd: soft, NTND. PEG tube in place. MSK: voluntary motion x4 Neuro: awake, alert, no focal deficits Results Labs 10/25/25 09:05 10/25/25 09:05 Labs: Laboratory Results - last 24 hr 10/25/25 10/25/25 10/25/25 09:05 09:57 10:15 WBC 2.07 L RBC 2.59 L Hgb 8.1 L Hct 25.4 L MCV 98 H MCH 31.3 MCHC 31.9 L RDW 14.0 Plt Count 275 MPV 9.1 Immature Gran % 0.0 Neutrophils % 45.0 Band Neutrophils % 9 Lymphocytes % 26.0 Monocytes % 18.0 Eosinophils % 0.0 Basophils % 1.0 Metamyelocytes % 1 Nucleated RBC % 3.0 H Absolute Neutrophils 1.12 L Absolute Lymphocytes 0.54 L Absolute Monocytes 0.37 Absolute Eosinophils 0.00 Absolute Basophils 0.02 RBC Morphology See Below Polychromasia Present Hypochromasia 1+ Anisocytosis 1+ Macrocytosis 1+ PT 11.4 H INR 1.1 VBG pH 7.37 VBG pCO2 54 H VBG pO2 30 VBG HCO3 31 H VBG Total CO2 33 H VBG O2 Saturation 53 VBG Base Excess 6 H Sodium 143 Potassium 4.3 Chloride 102 Carbon Dioxide 31.5 H Anion Gap 9.5 BUN 47 H Creatinine 1.20 H Est GFR (CKD-EPI 2020) 59.34 Glucose 122 H Calcium 8.9 Magnesium 1.9 Total Bilirubin 0.30 AST 64 H ALT 60 H Alkaline Phosphatase 121 H Troponin I 9 10 NT-Pro-B Natriuret Pep 896 H Total Protein 7.4 Albumin 3.6 Ethyl Alcohol < 3.0 Add-On Test Request DONE 10/25/25 11:59 WBC RBC Hgb Hct MCV MCH MCHC RDW Plt Count MPV Immature Gran % Neutrophils % Band Neutrophils % Lymphocytes % Monocytes % Eosinophils % Basophils % Metamyelocytes % Nucleated RBC % Absolute Neutrophils Absolute Lymphocytes Absolute Monocytes Absolute Eosinophils Absolute Basophils RBC Morphology Polychromasia Hypochromasia Anisocytosis Macrocytosis PT INR VBG pH VBG pCO2 VBG pO2 VBG HCO3 VBG Total CO2 VBG O2 Saturation VBG Base Excess Sodium Potassium Chloride Carbon Dioxide Anion Gap BUN Creatinine Est GFR (CKD-EPI 2020) Glucose Calcium Magnesium Total Bilirubin AST ALT Alkaline Phosphatase Troponin I Cancelled NT-Pro-B Natriuret Pep Total Protein Albumin Ethyl Alcohol Add-On Test Request Last Vital Signs Temp 38.3 C H 10/25/25 13:54 Pulse 101 H 10/25/25 13:54 Resp 22 10/25/25 08:53 BP 118/67 10/25/25 13:54 Pulse Ox 94 10/25/25 13:54 VTE Prohylaxis Risk Level: Moderate/High Risk Contraindications: None Prophylaxis: Pharmacologic Time Spent Time spent with Patient: 40-54 minutes Time was spent: preparing to see the patient(eg.review tests), obtaining and/or reviewing separately otained hiistory, ordering medications,tests, procedures, referring, communicating with other health career education teacher, indepentently interpreting results, counseling the patient and care coordination
[2025-10-25 16:44] LABS: COVID-19 PCR Negative (Negative); RSV PCR Negative (Negative)
[2025-10-25] MEDS: Heparin 5,000 UNITS/ML VIAL 5000 UNITS SC (20:13)
[2025-10-25] MEDS: AMPICILLIN/SULBACTAM 1.5 GM in Normal Saline 50 ML IVPB (20:13)
[2025-10-25] MEDS: Normal Saline Flush 10 ML SYR IVP (20:14)
[2025-10-26] VITALS (12 sets, daily range): BP systolic 110–141; BP diastolic 71–92; PULSE 79–95; RESP 16–21; O2SAT 88–98
[2025-10-26] MEDS: DEXTROSE 5%-LACTATED RINGERS 1,000 ML 75 ML IV (01:18)
[2025-10-26] MEDS: AMPICILLIN/SULBACTAM 1.5 GM in Normal Saline 50 ML IVPB ×2 (01:21→08:50)
--- NOTE | 2025-10-26 07:48 | W.PM.DS.N ---
Date of service: 10/26/25 Time of Service: 07:30 DS: Diagnosis Discharge Diagnosis (1) Aspiration pneumonia due to saliva: Status: Acute Asessment and Plan: Presumptive aspiration pneumonia Holding patient's reported bactrim for PJP PPX Steroids and doxycycline given in ED, discontinued Starting unasyn SpO2 monitoring Continuous suctioning Anticipate [facility] transfer in the morning ICU admission for q1h monitoring due to suctioning / aspiration risk (2) Esophageal mass: Status: Chronic Asessment and Plan: Actively in treatment for esophageal malignancy Trachea occluded by mass, stent placed approximately mid-August at [facility] Patient wants to continue treatment and live as long as possible However, he understands that CPR could dislodge the stent and the mass could further obstruct his airway He also understands that intubation with the stent in place may have the same risks He wants medical staff to *try* to resuscitate him should his heart or airway fail (3) Macrocytic anemia: Status: Acute Asessment and Plan: Due to cancer treatment (4) CKD (chronic kidney disease) stage 3, GFR 30-59 ml/min: Status: Chronic Asessment and Plan: Monitor (5) Neutropenia due to irradiation: Status: Acute Asessment and Plan: Afebrile at this time, vitals q4h ANC above 500 Antibiotics for aspiration pneumonia, broaden and isolate if he develops fever Discharge Plan Disposition Patient Disposition: Transfer-Acute Inpatient Care Specific Acute Inpt Facility: [facility] Condition: Poor Discharge Details Reason For Visit: Dyspnea Admit Date/Time: 10/25/25 15:38 Admit Provider: Akbar Villegas Attending Provider: Akbar Villegas Primary Care Provider: Lewis [facility] Course Hospital Course: Lewis Fong is a 75 year old man presenting October 25, sent in from oncology clinic for shortness of breath which has been worsening over 4 days. He is in treatment for esophageal cancer, with a large mass and tracheal stent placed one month prior to arrival. He wants to continue oncology treatment and get as much more life as he can. He is coughing up sputum continuously and is doing his own suctioning. He is not able to manage PO intake and has a functioning PEG tube in place. He reports that he has a nephew who lives nearby, and adult children in [place] and elsewhere. He denies pain, no N/V/D. He is hungry. In the ED he was found to be tachycardic 121 with elevated BP 143/89. Vitals otherwise unremarkable and satting 97% on room air. EKG with tachycardia, no occlusive pattern. Neutropenia with ANC 1120. Anemia with hemoglobin 8.1, elevated MCV 98. Chemistries with elevated CO2 31.5, mildly elevated creatinine 1.2 with baseline 1.1, mild transaminitis, elevated BNP 896. Troponins negative. CXR showing tracheal stent and hyperinflacted lungs, no infiltrates. CT neck and chest showing upper esophageal mass appearing no larger than prior imaging, significant enlargement of pulmonary nodules. He was given solumedrol, doxycycline, fluids and bronchodilator treatment. [facility] pulmonology was consulted and accepted the patient for transfer pending bed availability. PMH includes esophageal cancer, malignant melanoma, tobacco dependence, CAD, HLD He was admitted for presumptive aspiration pneumonia and placed in the ICU for frequent monitoring. Overnight he had one fever 38.3 which did not recur. He has been on room air throughout and continues to self-suction. Self-suctioning has prevented him from getting any meaningful rest. Discussed with [facility] transfer center Oct 26 730, transfer in process for noon stenting procedure with pulmonology. Home Meds and New Rx's Prescriptions: No Action aspirin [Adult Aspirin Regimen] 81 mg tablet,delayed release (DR/EC) 81 mg PO DAILY metoprolol succinate 25 mg tablet extended release 24 hr 25 mg PO DAILY folic acid 1 mg tablet 1 mg PO DAILY bupropion HCl [Wellbutrin XL] 150 mg tablet extended release 24 hr 150 mg PO DAILY magnesium oxide 400 mg magnesium tablet 400 mg PO DAILY atorvastatin 40 mg tablet 80 mg PO DAILY Qty: 0 0RF clopidogrel 75 mg Tablet 75 mg PO DAILY Qty: 17 0RF docusate sodium 50 mg/5 mL liquid 5 ml PO DAILY Patient Comments: TAKE 5 ML BY MOUTH EVERY DAY FOR CONSTIPATION, MAY INCREASE TO 10ML DAILY NEEDED prochlorperazine maleate 10 mg tablet 10 mg PO Q6H PRN Patient Comments: TAKE ONE TABLET BY MOUTH EVERY 6 HOURS NEEDED FOR NAUSEA prochlorperazine 25 mg suppository 25 mg HI Q12H Patient Comments: INSERT ONE SUPPOSITORY RECTALLY EVERY 12 HOURS NEEDED FOR NAUSEA ipratropium-albuterol 0.5 mg-3 mg(2.5 mg base)/3 mL Solution For Nebulization 3 ml UPD Q6H Qty: 48 1RF Discharge Instructions Activity:: Activity as Tolerated Equipment/Supplies:: No Equipment Needed Diet:: Other Discharge Orders Discharge Orders: Discharge Order (Routine); Ordered 10/26/25 Ordered By: Akbar Villegas DS: Summary Time Spent with Patient providing and/or coordinating discharge services: Less than 30 minutes Status at Discharge Functional status at discharge: independent ambulation Overall status at discharge: patient is not back to baseline Mental Status: mental status grossly normal Speech and Movement: other (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 Exam Narrative Exam Narrative: General: This is a cachectic, chronically ill-appearing man in mild distress due to secretions HEENT: Normocephalic, atraumati CV: RRR Resp: Diminished breath sounds bilaterally, some stridor on inspiration, productive cough, increased work of breathing Abd: soft, NTND. PEG tube in place. 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) Mood: congruent mood Affect: normal affect DS: Data Vitals/I&O Vitals and I&O: Vital Signs Temperature 37.5 C 10/25/25 17:55 Temperature Source Temporal Artery Scan 10/25/25 17:55 Pulse 90 10/26/25 06:00 Pulse 89 10/26/25 06:00 Respiratory Rate 16 10/26/25 03:01 Respiratory Effort Incrsd Work of Breathing 10/25/25 17:55 Respiratory Depth Normal 10/25/25 17:55 Respiratory Pattern Tachypnea 10/25/25 17:55 Blood Pressure 141/85 H 10/26/25 06:00 Blood Pressure Mean 99 10/26/25 06:00 Blood Pressure Position Supine 10/25/25 17:55 Pulse Oximetry 96 10/26/25 05:01 Oxygen Delivery Method Room Air 10/25/25 17:55 Oxygen Flow Rate 0 10/25/25 17:55 Intake & Output 10/25/25 10/25/25 10/26/25 11:59 23:59 11:59 Intake Total 770 760 / 770 230 / 230 Output Total 275 / 275 Balance 485 / 495 230 / 230 Weight 68.3 kg 60 kg Intake: IV 760 / 770 50 / 50 Intake, Tube Feeding Amount 180 / 180 Output: Urine 275 / 275 Other: Urine Color Light Leann Tyrrell Urine Appearance Clear Urine Odor Strong Data Completed and Pending Pending Labs at Discharge: 10/25/25 10/25/25 10/25/25 09:05 09:57 10:15 WBC 2.07 L RBC 2.59 L Hgb 8.1 L Hct 25.4 L MCV 98 H MCH 31.3 MCHC 31.9 L RDW 14.0 Plt Count 275 MPV 9.1 Immature Gran % 0.0 Neutrophils % 45.0 Band Neutrophils % 9 Lymphocytes % 26.0 Monocytes % 18.0 Eosinophils % 0.0 Basophils % 1.0 Metamyelocytes % 1 Nucleated RBC % 3.0 H Absolute Neutrophils 1.12 L Absolute Lymphocytes 0.54 L Absolute Monocytes 0.37 Absolute Eosinophils 0.00 Absolute Basophils 0.02 RBC Morphology See Below Polychromasia Present Hypochromasia 1+ Anisocytosis 1+ Macrocytosis 1+ PT 11.4 H INR 1.1 VBG pH 7.37 VBG pCO2 54 H VBG pO2 30 VBG HCO3 31 H VBG Total CO2 33 H VBG O2 Saturation 53 VBG Base Excess 6 H VBG Lactate Sodium 143 Potassium 4.3 Chloride 102 Carbon Dioxide 31.5 H Anion Gap 9.5 BUN 47 H Creatinine 1.20 H Est GFR (CKD-EPI 2020) 59.34 Glucose 122 H Calcium 8.9 Magnesium 1.9 Total Bilirubin 0.30 AST 64 H ALT 60 H Alkaline Phosphatase 121 H Troponin I 9 10 NT-Pro-B Natriuret Pep 896 H Total Protein 7.4 Albumin 3.6 Ethyl Alcohol < 3.0 COVID-19 Source SARS-CoV-2 (PCR) Influenza Type A (PCR) Influenza Type B (PCR) RSV (PCR) Add-On Test Request DONE 10/25/25 10/25/25 10/25/25 11:59 15:39 16:00 WBC RBC Hgb Hct MCV MCH MCHC RDW Plt Count MPV Immature Gran % Neutrophils % Band Neutrophils % Lymphocytes % Monocytes % Eosinophils % Basophils % Metamyelocytes % Nucleated RBC % Absolute Neutrophils Absolute Lymphocytes Absolute Monocytes Absolute Eosinophils Absolute Basophils RBC Morphology Polychromasia Hypochromasia Anisocytosis Macrocytosis PT INR VBG pH VBG pCO2 VBG pO2 VBG HCO3 VBG Total CO2 VBG O2 Saturation VBG Base Excess VBG Lactate 1.0 Sodium Potassium Chloride Carbon Dioxide Anion Gap BUN Creatinine Est GFR (CKD-EPI 2020) Glucose Calcium Magnesium Total Bilirubin AST ALT Alkaline Phosphatase Troponin I Cancelled NT-Pro-B Natriuret Pep Total Protein Albumin Ethyl Alcohol COVID-19 Source Nasopharynx SARS-CoV-2 (PCR) Negative Influenza Type A (PCR) Negative Influenza Type B (PCR) Negative RSV (PCR) Negative Add-On Test Request PFSH All Active Problems (Updated 10/25/25 @ 18:19 by Akbar Villegas MD) Neutropenia due to irradiation (Acute) Aspiration pneumonia due to saliva (Acute) Shortness of breath (Acute) Esophageal mass (Chronic) COPD exacerbation (Acute) Esophageal mass (Acute) Airway compromise (Acute) Dizziness of unknown cause (Acute) Left carotid stenosis (Acute) Left carotid stenosis (Chronic) CKD (chronic kidney disease) stage 3, GFR 30-59 ml/min (Chronic) Esophageal mass (Chronic) Oropharyngeal dysphagia (Acute) Serum creatinine raised (Acute) Atrial tachycardia (Acute) History of hypotension (Acute) Dysphagia (Acute) Pruritic rash (Acute) Acute kidney injury (Acute) Heart failure (Acute) Nicotine dependence (Acute) Heavy drinker (Acute) Alcohol abuse (Chronic) Macrocytic anemia (Acute) Metabolic acidosis (Acute) Hyponatremia (Acute) Medical History Tobacco dependence Alcohol dependence TIA (transient ischemic attack) Carotid stenosis, bilateral Chronic kidney disease, stage 3b Microscopic hematuria Myocardial infarction Overweight Monoclonal gammopathy Malignant melanoma Pneumonia Social History Smoking/Tobacco Use Status: Current every day Smoking risk assessment performed?: Yes Alcohol Intake: former Drug use: Never Substance use type: does not use Housing: apartment Time Spent with Patient Time Spent with Patient: <45 minutes Time was spent: preparing to see the patient(eg.review tests), obtaining and/or reviewing separately otained hiistory, ordering medications,tests, procedures, referring, communicating with other health landcare facilitator, indepentently interpreting results, counseling the patient and care coordination
--- NOTE | 2025-10-26 07:55 | PDOC.CMPRO ---
Date of service: 10/26/25 Time of Service: 07:55 Care Management Progress Note Progress Note Text Progress Note Text: Kishan was admitted yesterday with aspiration pneumonia due to saliva. Kishan has an esophageal mass which is occluding his trachea, he had a stent placed in mid-August and Kishan is actively in treatment for said mass. Kishan does his own suctioning, and a a PEG tube as he can not tolerate oral intake. He is transferring [place] [facility] today for a stenting procedure with pulmonology. Kishan was sitting up in the bed when CM met with him today. He was very pleasant. He is pleased to be getting transferred to [facility], he would like to be with the care team that knows him best. Discharge Potential Discharge Needs: Other (transfer to [facility] for procedure) Anticipated Barriers to Discharge: None Identified Patient/Family Education Needs: Review discharge instructions, discuss Ask Me Three Transportation: EMS Plan: Kishan is being transferred to [facility] [place] a procedure with pulmonology today. He will f/u with his PCP and his oncology team and continue per his plan of care. Kishan will transport via EMS as coordinated by the nursing accounts receivable supervisor. Social Determinants of Health Screening Will the Patient Participate in the Screening?: Declined to provide
== END 2025-10-26 09:45 | disposition short-term general hospital (02) | DRG 178 ==
LOC: ER 15:05 → ICU 17:39
PROVIDERS: Admitting Provider Family Medicine; Emergency Provider Registered Nurse Emergency; PCP Internal Medicine; Responsible Provider Family Medicine; Visit Provider Family Medicine
DX: J69.0 Pneumonitis due to inhalation of food and vomit (principal); C15.9 Malignant neoplasm of esophagus, unspecified; N18.31 Chronic kidney disease, stage 3a; D70.8 Other neutropenia; T66.XXXA Radiation sickness, unspecified, initial encounter; Y84.2 Radiological procedure and radiotherapy as the cause of abnormal reaction of the patient, or of later complication, without mention of misadventure at the time of the procedure; Z96.89 Presence of other specified functional implants; Z93.1 Gastrostomy status; F17.210 Nicotine dependence, cigarettes, uncomplicated; Z86.73 Personal history of transient ischemic attack (TIA), and cerebral infarction without residual deficits; I25.2 Old myocardial infarction; F10.20 Alcohol dependence, uncomplicated; D53.1 Other megaloblastic anemias, not elsewhere classified; J44.9 Chronic obstructive pulmonary disease, unspecified; I65.22 Occlusion and stenosis of left carotid artery; R00.0 Tachycardia, unspecified; R91.8 Other nonspecific abnormal finding of lung field
CPT/HCPCS: 00123; 36415; 71271; 80053; 82805; 87637; 93005; 94640; 96361; 96365; 96366; 96368; 96375; 99285; 70490; 71046; 80320; 83605; 83735; 83880; 84484; 85025; 85610; 93010; 94760; 99222; 99238; J0131; J0295; J1644; J2919; J7620

== ENCOUNTER 2025-10-25 09:39 | Outpatient (CLI) | payer MEDICARE, MEDICAID, SELFPAY ==
[2025-10-25 07:57] LABS: Abs Immature Grans 0.01 10^3/uL (0.0-0.06); HCT 25.2 % (40.0-50.0); HGB 8.0 g/dL (13.5-17.5); MCH 31.0 pg (27.0-33.0); MCHC 31.7 % (32.0-36.0); MCV 98 fL (80-95); MPV 8.9 fL (8.0-11.0); Platelet Count 271 10^3/uL (130-400); RBC 2.58 10^6/uL (4.36-5.78); RDW 13.9 % (11.8-14.1); RDW-SD 47.6 fL
[2025-10-25 08:12] LABS: Magnesium 1.8 mg/dL (1.6-2.6)
[2025-10-25 08:14] LABS: ALT 48 U/L (10-49); AST 47 U/L (<34); Albumin 3.6 g/dL (3.4-5.0); Alkaline Phosphatase 106 U/L (46-116); Anion Gap 8.8 mmol/L (3-11); BUN 46 mg/dL (9-23); Bilirubin, Total 0.30 mg/dL (0.2-1.2); CO2 32.2 mmol/L (20.0-31.0); Calcium 9.0 mg/dL (8.3-10.6); Chloride 102 mmol/L (98-107); Glucose 144 mg/dL (74-106); Potassium 4.1 mmol/L (3.5-5.1); Sodium 143 mmol/L (136-145); Total Protein 7.4 g/dL (5.7-8.2)
[2025-10-25 08:42] LABS: Immature Grans % 0.0 %
[2025-10-25 08:43] LABS: Anisocytosis 1+; Hypochromasia 1+; Microcytosis 1+; Polychromasia Present
[2025-10-25 08:47] LABS: WBC 1.96 10^3/uL (4.4-10.8)
== END 2025-10-25 09:40 | disposition home or self-care (01) ==
LOC: LBO 09:39
PROVIDERS: PCP Internal Medicine; Visit Provider Internal Medicine Medical Oncology
DX: C15.9 Malignant neoplasm of esophagus, unspecified (principal)
CPT/HCPCS: 36415; 80053; 83735; 85025